=== PATIENT | male | born 1990 | race Caucasian/White ===

== ENCOUNTER 2023-09-16 17:06 | Inpatient (IN) | payer MEDICAID, SELFPAY ==
[2023-09-16 17:35] VITALS: BP 130/83; PULSE 112; RESP 18; TEMP 37.1; O2SAT 97; BMI 26.5
--- NOTE | 2023-09-16 17:40 | ED.EXTPRO ---
HPI - Extremity Problem General Chief complaint: Extremity Injury, Lower Stated complaint: rolled ankle 09/07, swollen, hot Time Seen by Provider: 09/16/23 19:09 Source: patient Mode of arrival: ambulatory Limitations: no limitations History of Present Illness HPI Narrative: 33-year-old male with past medical history IVDU reports to the emergency department with concerns for increased right lower extremity swelling, pain, and erythema. He reports he has been clean for several years but that he is currently homeless, living in a truck and has not been able to elevate the leg. He reports that he was scratching his right leg a few days ago and noted a small abrasion which continued to become the erythema and swelling. He denies any fevers or chills and reports difficultly with ambulation. Related Data Previous Rx's Medication Instructions Recorded cephalexin 500 mg capsule 500 mg PO QID 7 days #28 caps 09/16/23 Allergies Allergy/AdvReac Type Severity Reaction Status Date / Time No Known Allergies Allergy Verified 09/16/23 17:39 Review of Systems Review of Systems: Yes all other systems are reviewed and are negative [facility] Social History Social History Advance Directives: No Advance Directives Information Provided: No Physical Exam Vital Signs: Vital Signs: Last Vital Signs Temp 99.3 F 09/16/23 20:02 Pulse 105 H 09/16/23 20:02 Resp 18 09/16/23 20:02 BP 134/71 09/16/23 20:02 Pulse Ox 98 09/16/23 20:02 O2 Del Method Room Air 09/16/23 20:02 BMI result Body Mass Index 26.5 Nursing notes and vital signs reviewed. GENERAL APPEARANCE: A&0 x 4, generally well appearing, no acute distress HENMT: Normal to inspection, atraumatic, face symmetrical. Normal external ears, nose, and oropharynx clear. EYE: PERRLA, EOM intact, structures appear normal NECK: Supple without stiffness or restricted ROM. HEART: Normal rate and regular rhythm, normal S1/S2, no M/R/G LUNGS: LS CTA, moving air well. Able to speak in complete sentences. No crackles, wheezes, or rhonchi auscultated BACK: No CVAT, no obvious deformity EXTREMITIES: Normal capillary refill. Erythema and swelling to right lower extremity with difficulty with gait NEUROLOGICAL: Alert and oriented, moving all 4 extremities with equal strength. CN not formally tested but appearing grossly intact. Cognition normal SKIN: Warm and dry without any lesions, rash, or visible sores Course Course Course Narrative: This is a rapid medical exam: Additional HPI, ROS, PE not included below will be deferred to primary provider. Concerns for redness, swelling, and warmth to right lower leg for the past several days. Denies fevers. States that he scratched his anterior leg and then began noticing increased erythema Medications Administered Discontinued Medications Generic Name Dose Route Start Last Admin Trade Name Rock PRN Reason Stop Dose Admin Cephalexin HCl 500 mg 09/16/23 19:11 09/16/23 21:04 Cephalexin 500 Mg Capsule PO 09/16/23 19:12 500 mg ONCE ONE Administration Ibuprofen 600 mg 09/16/23 21:04 09/16/23 21:10 Ibuprofen 600 Mg Tablet PO 09/16/23 21:05 600 mg ONCE ONE Administration Medical Decision Making Medical Decision Making MDM Narrative: Old records reviewed for previous imaging, lab studies, ECGs, and notes. Patient was assessed the emergency department with no acute distress or toxicity noted. Blood work showing mild leukocytosis with WBCs 11.2. ESR and CRP elevated. Patient's physical exam consistent with cellulitis with no evidence of acute abscess. Initial plan was for discharge home with prescription for cephalexin. First dose was given here in the emergency department, however; he reports concern regarding discharge. 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 Repeat vital signs showed a temperature of 100.9 after receiving ibuprofen. Tylenol was ordered for antipyretic. IV vancomycin and clindamycin ordered for IV management of cellulitis. I spoke to the hospitalist, Dr. Randall Luo, via secure message with plan for admission. Lab Data 09/16/23 18:05 09/16/23 18:05 Labs: Lab Results 09/16/23 Range/Units 18:05 WBC 11.2 H (4.8-10.8) X10*3/uL RBC 4.18 L (4.60-5.80) X10*6/uL Hgb 12.3 L (14.0-18.0) g/dl Hct 37.0 L (42.0-52.0) % MCV 88.5 (80.0-98.0) fL MCH 29.4 (27.0-33.0) pg MCHC 33.2 (31.0-36.0) g/dl RDW 12.8 (11.0-16.0) % Plt Count 316 (160-400) X10*3/uL MPV 8.7 L (9.4-12.4) fL Immature Gran % (Auto) 0.3 (0.0-0.4) % Neut % (Auto) 81.1 H (45-73) % Lymph % (Auto) 10.9 L (20-40) % [place] % (Auto) 7.3 (2-11) % Eos % (Auto) 0.2 (0-4) % Baso % (Auto) 0.2 (0-2) % Lymph # (Auto) 1.2 (1.2-4.9) X10*3/uL [place] # (Auto) 0.8 (0.1-1.2) X10*3/uL Eos # (Auto) 0.0 (0.0-0.4) X10*3/uL Baso # (Auto) 0.0 (0.0-0.2) X10*3/uL Abs Immat Gran (auto) 0.03 (0.00-0.03) X10*3/uL Absolute Neuts (auto) 9.1 H (2.0-8.3) x10*3/uL Absolute Nucleated RBC 0.000 (0.0-0.012) X10*3/uL Nucleated RBC % (auto) 0.0 (0.0-0.2) /100WBC ESR 34 H (0-15) MM/HR Sodium 136 (135-145) mmol/L Potassium 3.8 (3.3-5.1) mmol/L Chloride 97 (96-108) mmol/L Carbon Dioxide 29 (22-29) mmol/L Anion Gap 14 (12-20) BUN 9 (9-16) mg/dL Creatinine 0.67 (0.5-1.4) mg/dL Estim Creat Clear Calc 158.8 Estimated GFR > 60 Random Glucose 96 (60-115) mg/dL Calcium 9.0 (8.4-10.2) mg/dL Total Bilirubin 0.5 (0.0-1.0) mg/dL AST 31 (5-37) U/L ALT 38 (0-40) U/L Alkaline Phosphatase 52 (39-117) U/L C-Reactive Protein 10.57 H (< or = 0.50) mg/dL Total Protein 6.5 (6.5-8.0) g/dL Albumin 3.4 L (3.5-5.0) g/dL Discharge Plan Discharge Clinical Impression: Cellulitis of leg, right Patient Disposition: Still a Patient Instructions: Cellulitis (ED) Prescriptions: New cephalexin 500 mg capsule 500 mg PO QID 7 Days Qty: 28 0RF Referrals: [facility] [Provider Group] [facility] [Provider Group] [facility] [Provider Group] Print Language: Swedish
[2023-09-16 18:11] LABS: MANUAL DIFF FLAG NO
[2023-09-16 18:18] LABS: Basophils Percent Auto 0.2 % (0-2); Eosinophils Percent Auto 0.2 % (0-4); Hemoglobin 12.3 g/dl (14.0-18.0); Imm Gran Abs Auto 0.03 X10*3/uL (0.00-0.03); Imm Gran Pct Auto 0.3 % (0.0-0.4); Lymphocytes Absolute Auto 1.2 X10*3/uL (1.2-4.9); Lymphocytes Percent Auto 10.9 % (20-40); Mean Corpuscular HGB Conc 33.2 g/dl (31.0-36.0); Mean Corpuscular Hemoglobin 29.4 pg (27.0-33.0); Mean Corpuscular Volume 88.5 fL (80.0-98.0); Mean Platelet Volume 8.7 fL (9.4-12.4); Monocytes Absolute Auto 0.8 X10*3/uL (0.1-1.2); Monocytes Percent Auto 7.3 % (2-11); Neutrophils Absolute Auto 9.1 x10*3/uL (2.0-8.3); Neutrophils Percent Auto 81.1 % (45-73); Platelet Count 316 X10*3/uL (160-400); Red Blood Count 4.18 X10*6/uL (4.60-5.80); Red Cell Distribution Width 12.8 % (11.0-16.0); White Blood Count 11.2 X10*3/uL (4.8-10.8)
[2023-09-16 18:26] LABS: Alanine Aminotransferase 38 U/L (0-40); Albumin Level 3.4 g/dL (3.5-5.0); Alkaline Phosphatase 52 U/L (39-117); Anion Gap 14 (12-20); Aspartate Amino Transferase 31 U/L (5-37); Bilirubin Total 0.5 mg/dL (0.0-1.0); Blood Urea Nitrogen 9 mg/dL (9-16); C Reactive Protein 10.57 mg/dL (< or = 0.50); Carbon Dioxide 29 mmol/L (22-29); Chloride 97 mmol/L (96-108); Creatinine Clr Calc Pharmacy 158.8; Estimated Glomerular Filt Rate > 60; Glucose Random 96 mg/dL (60-115); Potassium 3.8 mmol/L (3.3-5.1); Sodium 136 mmol/L (135-145); Total Protein 6.5 g/dL (6.5-8.0)
[2023-09-16 18:56] LABS: Erythrocyte Sedimentation Rate 34 MM/HR (0-15)
[2023-09-16 20:02] VITALS: BP 134/71; PULSE 105; RESP 18; TEMP 37.4; O2SAT 98
[2023-09-16] MEDS: cephALEXin 500 MG CAPSULE PO (21:04)
[2023-09-16] MEDS: Ibuprofen 600 MG TABLET PO (21:10)
--- NOTE | 2023-09-16 21:58 | PHA.MEDREC ---
Pharmacy Consult ? Medication Reconciliation Pharmacy has completed the medication reconciliation. Patient confirms that he takes no medications.
--- NOTE | 2023-09-16 22:36 | MHC.CM.ED ---
Received consult from Loree JEFFERSON. Met with patient in 17H. LLE cellulitis. Pt is homeless. Has been staying in an abandoned truck. Can stay there from 12a to 5:30am. Otherwise is on the [address]. Pt tells CM he know how to be homeless. Pt borrowed a cane from a friend, as it has become too painful to walk. Pt has recently obtained Medicaid and has been assigned [facility] in [place] for his PCP, but he has never been there. Pt is not on disability. CM asked if patient would be able to obtain prescription antibiotics if discharged. Pt states he really does not think so. Pt has no family locally. Pt went to [facility] today because his leg pain was so severe. They told him to come to the ED. Pt has been in recovery for about 4-5 years from heroin and recently relapsed in the past 2 weeks. States the pain in his leg was too much and that percocet on the street costs about $30/pill, so he bought several bags of heroin. Pt snorts, no IV. Last used heroin 2 days ago. Does not feel he needs any MAT. States he was on methadone for years and was weaned off at a program. States he had a bad reaction to suboxone. Pt is willing to meet with Addiction Medicine. Pt is a pending admission. Pt [facility] [address] for recovery support. Pt is waiting for hospitalist. Pt may be a candidate for [facility] medical respite at discharge. CM will follow for discharge planning if admitted.
--- NOTE | 2023-09-16 23:22 | P.HPHOSP_ITS ---
History of Present Illness Date of Service: 09/16/23 Attending physician on admission: Castro Luo Chief Complaint: Right leg redness and swelling Pt is a 33-year-old male with a PMH significant for?IVDU who presents to the ED with?right leg redness, swelling, and pain x1 week. Pt states symptoms began last week with redness around his ankle, which soon spread up his leg. Leg became swollen and painful and made it difficult the walk; pt has been ambulating with a cane he borrowed from a friend. Has also experienced subjective fever and chills but no nausea or vomiting. Denies chest pain/pressure, palpitations. No SOB. Denies N/V/D or abdominal pain. Pt initially denied any recent drug use, but later admitted he recently relapsed with injecting heroin. In the ED pt was tachycardic up to 112 and with elevated temp of 99.3. Labs were significant for leukocytosis of 11.2, ESR 34, CRP 10.57. No electrolyte abnormalities. Renal and hepatic function WNL. UA negative for UTI. Tox screen positive for opiates, fentanyl, and cocaine. Pt was treated with ibuprophen and cephalexin po. Pt will be admitted to the hospital for treatment and further evaluation of right leg cellulitis. Review of Systems 2 Review of Systems: Right leg redness, swelling, and pain Difficulty abulating subjective fever and chills ON LICENSE OF [facility] Medical History (Updated 09/17/23 @ 01:43 by KOLTON Callahan) Polysubstance use disorder Social History Advance Directives: No Advance Directives Information Provided: No Meds Allergies Allergy/AdvReac Type Severity Reaction Status Date / Time No Known Allergies Allergy Verified 09/16/23 17:39 Active Medications: Current Medications Acetaminophen (Acetaminophen 325 Mg Tablet) 650 mg PO Q6H PRN PRN Reason: Pain, Mild (Pain Scale 1-3) Benzonatate (Benzonatate 100 Mg Capsule) 100 mg PO TID PRN PRN Reason: Cough Docusate Sodium (Docusate Sodium 100 Mg Capsule) 100 mg PO DAILY PRN PRN Reason: Constipation Enoxaparin Sodium (Enoxaparin Sodium 40 Mg/0.4 Ml Syringe) 40 mg SUBCUT Q24H OLAYINKA Vancomycin HCl (Vancomycin/Ns) 2,000 mg in 500 mls @ 250 mls/hr IV ONCE ONE Stop: 09/16/23 23:59 Melatonin (Melatonin 3 Mg Tablet) 6 mg PO BEDTIME PRN PRN Reason: Insomnia Ondansetron HCl (Ondansetron Hcl 4 Mg/2 Ml Vial) 4 mg IVPUSH Q8H PRN PRN Reason: Nausea and Vomiting Pharmacy Consult (Consult Rx Vancomycin Dosing) 1 each MISCELLANE DAILY PRN PRN Reason: Consult order Sodium Chloride (0.9 % Sodium Chloride Flush 3 Ml Syringe) 3 ml IVFLUSH QSHIFT [facility] Home Medications Medication Instructions Recorded Confirmed Last Taken Type No Known Home Meds 09/16/23 09/16/23 Unknown History Physical Exam 2 Vital Signs and Narrative: Vital Signs: Last Vital Signs Temp 99.3 F 09/16/23 20:02 Pulse 105 H 09/16/23 20:02 Resp 18 09/16/23 20:02 BP 134/71 09/16/23 20:02 Pulse Ox 98 09/16/23 20:02 O2 Del Method Room Air 09/16/23 20:02 BMI result Body Mass Index 26.5 General: AOx3, no acute distress Resp: CTA bilaterally CVS: S1, S2, RRR GI: +BS, NT, no distention Skin: Warm, dry Neuro: Cranial nerves II-XII grossly intact bilaterally. Motor grossly intact bilaterally Extremities: No edema. Extensive erythema and warmth of lower right extremity extending from ankle up to groin. As pictured below. Psych: Appropriate affect Results Labs 09/16/23 18:05 09/16/23 18:05 Labs: Laboratory Results - last 24 hr 09/16/23 18:05 MCV 88.5 MCH 29.4 MCHC 33.2 RDW 12.8 Plt Count 316 MPV 8.7 L Immature Gran % (Auto) 0.3 Neut % (Auto) 81.1 H Lymph % (Auto) 10.9 L [place] % (Auto) 7.3 Eos % (Auto) 0.2 Baso % (Auto) 0.2 Lymph # (Auto) 1.2 [place] # (Auto) 0.8 Eos # (Auto) 0.0 Baso # (Auto) 0.0 Abs Immat Gran (auto) 0.03 Absolute Neuts (auto) 9.1 H Absolute Nucleated RBC 0.000 Nucleated RBC % (auto) 0.0 ESR 34 H Anion Gap 14 Estim Creat Clear Calc 158.8 Estimated GFR > 60 Random Glucose 96 Calcium 9.0 Total Bilirubin 0.5 AST 31 ALT 38 Alkaline Phosphatase 52 C-Reactive Protein 10.57 H Total Protein 6.5 Albumin 3.4 L Assessment and Plan (1) Cellulitis of leg, right: Status: Acute Plan Pt is a 33-year-old male with a PMH significant for?IVDU who presents to the ED with?right leg redness, swelling, and pain x1 week. Pt will be admitted to the hospital for treatment and further evaluation of right leg cellulitis. Right leg cellulitis Redness, warmth, pain, F/C x1 week Difficulty ambulating Likely secondary to IVDU Pt does not meet sepsis criteria: tachycardia, but no tachypnea, leukocytosis, or fever Will treat with vanco, started 09/17/2023 Follow cultures Hx of IVDU Pt recently relapsed Tox screen positive for opioids, fentanyl, cocaine Addiction medicine consult Full Code Attending:?Dr. Pereira DVT Prophylaxis: Lovenox Pt will require a hospitalization of at least two nights for treatment of?left leg cellulitis. Although pt does not meet sepsis criteria, given the extent of the cellulitis (from ankle to the groin), as well as the likely source secondary to IVDU, pt will need hospitalization for treatment with IV antibiotics. Quality Stroke Does the patient have a stroke diagnosis?: No VTE Prior VTE?: No VTE Risk Level:: Medical - moderate - high VTE Device Contraindication: Treatment Not Indicated VTE Drug Contraindication: N/A - Med Ordered
[2023-09-17] MEDS: Acetaminophen 325 MG TABLET 975 MG PO (00:11)
[2023-09-17] MEDS: Clindamycin Phosphate/D5W 600 MG/50 ML PIGGYBACK 100 MG IV (00:11)
[2023-09-17 00:25] LABS: Amphetamine Screen Urine Not Detected (Not Detect); Barbiturates, Urine Not Detected (Not Detect); Benzodiazepines Screen Urine Not Detected (Not Detect); Cannabinoid Screen Urine Not Detected (Not Detect); Cocaine Screen Urine POSITIVE (Not Detect); Fentanyl, urine POSITIVE (Not Detect); Opiate Screen Urine POSITIVE (Not Detect); Phencyclidine Screen Urine Not Detected (Not Detect)
[2023-09-17 00:27] LABS: Appearance Urine Clear; Color Urine Yellow; Glucose Urine UA Negative (Negative); Leukocyte Esterase Urine Negative (Negative); Nitrite Urine Negative (Negative); Specific Gravity - Urine <= 1.005 (1.005-1.025); Urine Blood Negative (Negative); Urine Ketones Negative (Negative); Urine Protein Negative (Neg-Trace)
[2023-09-17] MEDS: vancomycin HCL 1,000 MG in 0.9 % Sodium Chloride 250 ML 270 MG IV ×2 (00:51→02:16)
[2023-09-17 02:17] VITALS: BP 100/47; PULSE 61; RESP 14; TEMP 36.6; O2SAT 98
[2023-09-17 06:34] VITALS: BP 132/80; PULSE 85; RESP 16; TEMP 36.4; O2SAT 98
[2023-09-17] MEDS: Acetaminophen 325 MG TABLET 650 MG PO ×2 (08:43→18:10)
[2023-09-17] MEDS: 0.9 % Sodium Chloride Flush 3 ML SYRINGE IVFLUSH (08:47)
--- NOTE | 2023-09-17 08:48 | PC.NURSE ---
Patient alert and oriented laying in bed with breakfast at bedside. Patient is reporting 7/10 RLE pain, tylenol administered at this time, will reassess, redness and swelling noted. Patient reports that his leg is feeling/looking better than yesterday, will continue to observe.
--- NOTE | 2023-09-17 09:25 | PC.NURSE ---
rebel texted Dr. Malagon regarding patient's pain at this time, waiting on answer.
--- NOTE | 2023-09-17 09:45 | PC.NURSE ---
Patient up to bathroom with walker with 1 assist with steady gait.
--- NOTE | 2023-09-17 09:59 | PC.NURSE ---
monomer recovery supervisor at bedside at this time.
--- NOTE | 2023-09-17 10:06 | P.PNIM_ITS ---
Subjective Subjective Date of Service: 09/17/23 Interval History: No acute events since admission. Complaining of leg pain Review of Systems Right leg redness, swelling, and pain Difficulty abulating subjective fever and chills Physical Exam 2 Vital Signs: Vital Signs: Last Vital Signs Temp 97.6 F 09/17/23 06:34 Pulse 85 09/17/23 06:34 Resp 16 09/17/23 06:34 BP 132/80 09/17/23 06:34 Pulse Ox 98 09/17/23 06:34 O2 Del Method Room Air 09/17/23 06:34 BMI result Body Mass Index 26.5 Middle-aged male lying in bed in no distress Neck supple, no JVD Regular rate and rhythm, S1-S2 heard Regular breath sounds bilaterally, no wheezing or crackles appreciated Abdomen soft nontender, no guarding, no rigidity Patient is awake, alert and oriented to self, place, time and person ; no focal motor deficit Psych: Normal mood Left lower extremity with extensive erythema, warmth and tenderness Objective Data Active Medications Acetaminophen (Acetaminophen 325 Mg Tablet) 650 mg PO Q6H PRN PRN Reason: Pain, Mild (Pain Scale 1-3) Last Admin: 09/17/23 08:43 Dose: 650 mg Documented By: KANG Benzonatate (Benzonatate 100 Mg Capsule) 100 mg PO TID PRN PRN Reason: Cough Docusate Sodium (Docusate Sodium 100 Mg Capsule) 100 mg PO DAILY PRN PRN Reason: Constipation Enoxaparin Sodium (Enoxaparin Sodium 40 Mg/0.4 Ml Syringe) 40 mg SUBCUT Q24H [facility] Last Admin: 09/17/23 00:17 Dose: Not Given Documented By: TK Non-Admin Reason: Patient Refused Melatonin (Melatonin 3 Mg Tablet) 6 mg PO BEDTIME PRN PRN Reason: Insomnia Ondansetron HCl (Ondansetron Hcl 4 Mg/2 Ml Vial) 4 mg IVPUSH Q8H PRN PRN Reason: Nausea and Vomiting Pharmacy Consult (Consult Rx Vancomycin Dosing) 1 each MISCELLANE DAILY PRN PRN Reason: Consult order Sodium Chloride (0.9 % Sodium Chloride Flush 3 Ml Syringe) 3 ml IVFLUSH QSHIFT [facility] Last Admin: 09/17/23 08:47 Dose: 3 ml Documented By: HO.MONFETE Tramadol HCl (Tramadol Hcl 50 Mg Tablet) 50 mg PO Q6H PRN PRN Reason: Pain, Moderate(Pain Scale 4-6) Labs 09/16/23 18:05 09/16/23 18:05 Labs: Laboratory Results - last 24 hr 09/16/23 09/17/23 18:05 00:06 MCV 88.5 MCH 29.4 MCHC 33.2 RDW 12.8 Plt Count 316 MPV 8.7 L Immature Gran % (Auto) 0.3 Neut % (Auto) 81.1 H Lymph % (Auto) 10.9 L [place] % (Auto) 7.3 Eos % (Auto) 0.2 Baso % (Auto) 0.2 Lymph # (Auto) 1.2 [place] # (Auto) 0.8 Eos # (Auto) 0.0 Baso # (Auto) 0.0 Abs Immat Gran (auto) 0.03 Absolute Neuts (auto) 9.1 H Absolute Nucleated RBC 0.000 Nucleated RBC % (auto) 0.0 ESR 34 H Anion Gap 14 Estim Creat Clear Calc 158.8 Estimated GFR > 60 Random Glucose 96 Calcium 9.0 Total Bilirubin 0.5 AST 31 ALT 38 Alkaline Phosphatase 52 C-Reactive Protein 10.57 H Total Protein 6.5 Albumin 3.4 L Urine Color Yellow Urine Appearance Clear Urine pH 7.0 Ur Specific [place] <= 1.005 Urine Protein Negative Urine Glucose (UA) Negative Urine Ketones Negative Urine Blood Negative Urine Nitrite Negative Ur Leukocyte Esterase Negative Urine Opiates Screen POSITIVE H Urine Fentanyl Screen POSITIVE H Ur Barbiturates Screen Not Detected Ur Phencyclidine Scrn Not Detected Ur Amphetamines Screen Not Detected U Benzodiazepines Scrn Not Detected Urine Cocaine Screen POSITIVE H U Marijuana (THC) Screen Not Detected Assessment and Plan (1) Cellulitis of leg, right: Status: Acute Plan Pt is a 33-year-old male with a PMH significant for?IVDU who presents to the ED with?right leg redness, swelling, and pain x1 week. Pt will be admitted to the hospital for treatment and further evaluation of right leg cellulitis. Right leg cellulitis IV antibiotics due to extensive cellulitis. No sepsis Vancomycin initiated 09/16, continue Follow cultures and monitor for improvement Hx of IVDU Pt recently relapsed Tox screen positive for opioids, fentanyl, cocaine Addiction medicine consult Full Code DVT Prophylaxis: Lovenox Reason for continued hospitalization: IV antibiotics for extensive cellulitis. Awaiting cultures Quality Stroke Does the patient have a stroke diagnosis?: No VTE Prior VTE?: No VTE Risk Level:: Medical - moderate - high VTE Device Contraindication: Treatment Not Indicated VTE Drug Contraindication: N/A - Med Ordered
[2023-09-17] MEDS: traMADoL HCL 50 MG TABLET PO ×2 (10:17→19:30)
[2023-09-17] MEDS: methADONE HCl 20 MG/2 ML ORAL.CONC 30 MG PO (10:44)
--- NOTE | 2023-09-17 10:45 | PC.NURSE ---
methadone given as ordered at this time.
[2023-09-17 11:07] LABS: Creatinine Clr Calc Pharmacy 163.7; Estimated Glomerular Filt Rate > 60
--- NOTE | 2023-09-17 11:10 | MHC.RECOVRN ---
Met with pt ED OF 3 after consult placed to Addiction Medicine for H/O IVDU with possibility of using again.? Chart review completed and received report from floor nurse KAREN Randall. Pt had presented to the ED stating that he had rolled his left ankle and had been overcompensating with his right ankle causing swelling and pain.? ?Pt was admitted to for left leg cellulitis requiring IV antibiotics.? Upon assessment pt is lying in bed awake and alert.? He reports some overall discomfort R/T W/D and COWS assessment was a 13. Based on subjective and objective assessment. Pt reports he had maintained a period of 2 years of sobriety from ?heroin?.? He was able to achieve this by participating in community resources ([employer], [employer] [facility], meetings, etc) and receiving MOUD (methadone).? Pt reports his highest dose was 130 but he was recently maintained at 90mg.? He was attending the [facility] until 08/30/22.? Pt reports that approx. 1 week ago he twisted his left ankle.? He had been overcompensating with his right foot due to the pain.? He also had purchased some ?pain pills? on the street for the pain as ibuprofen was not working.? The pills did not give much relief either so he returned to ?heroin? (?that?s what they are calling it but who knows what it is?).? He has been using approx. 1 bag of heroin via nasal route for approx. 1 week.? Last use was 09/15 in the PM.? ?? Pt would like to return to the methadone clinic once D/C from hospital.? He feels he had good success with this plan.? Suboxone discussed but pt. is happy with methadone. T/W Spoke with Dr. Malagon and pt was prescribed 30mg methadone.? Referral sent to [facility] in [place] per pt request and plan is for pt to f/u with this clinic upon D/C.? ACS with F/U with pt if still admitted tomorrow and advocate for ongoing methadone coverage while inpt.? Pt was given information for [facility] clinic in [place].? He was also provided with harm reduction information.? Report to Prakash Nguyen, KAREN and ACS team.
--- NOTE | 2023-09-17 13:04 | PHA.PROG ---
Admission Date/Time: September 16, 2023 23:06 Indication: SKIN Weight in k.915 kg Adjusted body weight in Kg: [place] body weight in Kg: Obesity Dosing Indication % IBW: Serum Creatinine - Last 168 Hours 09/16/23 09/17/23 18:05 10:51 Creatinine 0.67 0.65 Estimated CrCl and GFR - Last 168 Hours 09/16/23 09/17/23 18:05 10:51 Estim Creat Clear Calc 158.8 163.7 Estimated GFR > 60 > 60 Vancomycin Loading Dose: 2000 MG Current Vancomycin Dosing Regimen: 1500 MG Q12 Vancomycin Monitoring using AUC goal of 400 - 600 range with trough as surrogate marker:554 Date and Time for next Vancomycin Level to be drawn: 09/17 @1200 Pharmacist Comments on Vancomycin Plan: Vancomycin dosing will take advantage of [employer] as a clinical decision support tool that uses Bayesian modeling to calculate individual patient's pharmacokinetic parameters and forecast the patient's drug concentration time course with the target goal AUC 24 range of 400 - 600 mg/L/hr.
[2023-09-17 14:17] VITALS: BMI 27.9
[2023-09-17 14:19] VITALS: BP 142/87; PULSE 67; RESP 18; TEMP 36.2; O2SAT 98
[2023-09-17] MEDS: vancomycin HCL 1,500 MG in 0.9 % Sodium Chloride 500 ML 333.33 MG IV (14:34)
[2023-09-17] MEDS: Morphine Sulfate Immed Release 15 MG TABLET PO (15:28)
[2023-09-17 15:33] VITALS: BP 142/86; PULSE 62; RESP 18; TEMP 36.2; O2SAT 100
[2023-09-17 19:15] VITALS: BP 131/77; PULSE 63; RESP 18; TEMP 36.9; O2SAT 98
[2023-09-17] MEDS: Melatonin 3 MG TABLET 6 MG PO (21:55)
[2023-09-18] MEDS: 0.9 % Sodium Chloride Flush 3 ML SYRINGE IVFLUSH ×3 (00:03→19:55)
[2023-09-18] MEDS: traMADoL HCL 50 MG TABLET PO ×2 (00:54→06:29)
[2023-09-18] MEDS: vancomycin HCL 1,500 MG in 0.9 % Sodium Chloride 500 ML 333.33 MG IV (00:55)
[2023-09-18 02:49] VITALS: BP 127/74; PULSE 64; RESP 18; TEMP 36.7; O2SAT 99
[2023-09-18 06:19] LABS: MANUAL DIFF FLAG NO
--- NOTE | 2023-09-18 06:37 | PC.NURSE ---
notified via [employer] that patient reported that Ultram is not helping his pain enough and was not comfortable enough during the night although he did not report this until this morning. Also notified patient feels he is having withdraw symptoms such as sweating, chills, nausea and states his concern that his new Methadone order is not high enough to help him.
[2023-09-18 06:44] LABS: Basophils Percent Auto 0.7 % (0-2); Eosinophils Absolute Auto 0.1 X10*3/uL (0.0-0.4); Eosinophils Percent Auto 1.6 % (0-4); Hematocrit 36.2 % (42.0-52.0); Hemoglobin 11.8 g/dl (14.0-18.0); Imm Gran Abs Auto 0.02 X10*3/uL (0.00-0.03); Imm Gran Pct Auto 0.4 % (0.0-0.4); Lymphocytes Absolute Auto 1.2 X10*3/uL (1.2-4.9); Lymphocytes Percent Auto 22.3 % (20-40); Mean Corpuscular HGB Conc 32.6 g/dl (31.0-36.0); Mean Corpuscular Volume 88.9 fL (80.0-98.0); Monocytes Absolute Auto 0.4 X10*3/uL (0.1-1.2); Monocytes Percent Auto 6.4 % (2-11); Neutrophils Absolute Auto 3.8 x10*3/uL (2.0-8.3); Neutrophils Percent Auto 68.6 % (45-73); Platelet Count 314 X10*3/uL (160-400); Red Blood Count 4.07 X10*6/uL (4.60-5.80); Red Cell Distribution Width 12.8 % (11.0-16.0); White Blood Count 5.5 X10*3/uL (4.8-10.8)
[2023-09-18 06:52] LABS: Creatinine Clr Calc Pharmacy 177.4; Estimated Glomerular Filt Rate > 60
[2023-09-18 07:14] VITALS: BP 148/80; PULSE 84; RESP 16; TEMP 36.6; O2SAT 100
[2023-09-18] MEDS: oxyCODONE HCl Immed Release 5 MG TABLET PO ×4 (07:25→20:03)
[2023-09-18] MEDS: methADONE HCl 20 MG/2 ML ORAL.CONC 30 MG PO (08:53)
[2023-09-18] MEDS: Ibuprofen 400 MG TABLET PO ×3 (09:58→18:03)
--- NOTE | 2023-09-18 10:35 | HO.PM.IMPN ---
Subjective Subjective Date of Service: 09/18/23 Interval History: Seen and evaluated this morning complaining of pain in his leg erythema resolving Review of Systems Review of Systems: Yes all other systems are reviewed and are negative Physical Exam Vital Signs: Vital Signs: Last Vital Signs Temp 97.8 F 09/18/23 07:14 Pulse 84 09/18/23 07:14 Resp 16 09/18/23 07:14 BP 148/80 H 09/18/23 07:14 Pulse Ox 100 09/18/23 07:14 O2 Del Method Room Air 09/18/23 07:14 BMI result Body Mass Index 27.9 Const: Other: Constitutional : Awake, interactive, not in distress Neck : Normal inspection, Supple Cardiovascular : RRR, no JVP, no lower extremity edema Respiratory : good bilateral air entry, no crackles, wheezes or rhonchi Gastrointestinal: soft, lax, Normal bowel sounds, Non tender Skin : Warm, Dry, RLE erythema improving, tenderness and warmth on touch Neurological : Alert & oriented x3, No focal deficit Objective Data Active Medications Acetaminophen (Acetaminophen 325 Mg Tablet) 650 mg PO Q6H PRN PRN Reason: Pain, Mild (Pain Scale 1-3) Last Admin: 09/17/23 18:10 Dose: 650 mg Documented By: BORIS Benzonatate (Benzonatate 100 Mg Capsule) 100 mg PO TID PRN PRN Reason: Cough Docusate Sodium (Docusate Sodium 100 Mg Capsule) 100 mg PO DAILY PRN PRN Reason: Constipation Enoxaparin Sodium (Enoxaparin Sodium 40 Mg/0.4 Ml Syringe) 40 mg SUBCUT Q24H [facility] Last Admin: 09/18/23 00:06 Dose: Not Given Documented By: KAYCE Non-Admin Reason: Patient Refused Vancomycin HCl 1,500 mg/ (Sodium Chloride) 500 mls @ 333.333 mls/hr IV Q12H [facility] Last Infusion: 09/18/23 04:23 Dose: Infused Documented By: KAYCE Ibuprofen (Ibuprofen 400 Mg Tablet) 400 mg PO TIDWM [facility] Last Admin: 09/18/23 09:58 Dose: 400 mg Documented By: BOBBI Melatonin (Melatonin 3 Mg Tablet) 6 mg PO BEDTIME PRN PRN Reason: Insomnia Last Admin: 09/17/23 21:55 Dose: 6 mg Documented By: PING Methadone HCl (Methadone Hcl 20 Mg/2 Ml Oral.Conc) 30 mg PO DAILY [facility] Last Admin: 09/18/23 08:53 Dose: 30 mg Documented By: BOBBI Ondansetron HCl (Ondansetron Hcl 4 Mg/2 Ml Vial) 4 mg IVPUSH Q8H PRN PRN Reason: Nausea and Vomiting Oxycodone HCl (Oxycodone Hcl Immed Release 5 Mg Tablet) 5 mg PO Q4H PRN PRN Reason: Pain, Severe (Pain Scale 7-10) Last Admin: 09/18/23 07:25 Dose: 5 mg Documented By: BOBBI Pharmacy Consult (Consult Rx Vancomycin Dosing) 1 each MISCELLANE DAILY PRN PRN Reason: Consult order Sodium Chloride (0.9 % Sodium Chloride Flush 3 Ml Syringe) 3 ml IVFLUSH QSDCFT [facility] Last Admin: 09/18/23 08:53 Dose: 3 ml Documented By: BOBBI Labs 09/18/23 05:33 09/18/23 05:33 Labs: Laboratory Results - last 24 hr 09/17/23 09/18/23 10:51 05:33 MCV 88.9 MCH 29.0 MCHC 32.6 RDW 12.8 Plt Count 314 MPV 9.0 L Immature Gran % (Auto) 0.4 Neut % (Auto) 68.6 Lymph % (Auto) 22.3 Dickson % (Auto) 6.4 Eos % (Auto) 1.6 Baso % (Auto) 0.7 Lymph # (Auto) 1.2 Dickson # (Auto) 0.4 Eos # (Auto) 0.1 Baso # (Auto) 0.0 Abs Immat Gran (auto) 0.02 Absolute Neuts (auto) 3.8 Absolute Nucleated RBC 0.000 Nucleated RBC % (auto) 0.0 Estim Creat Clear Calc 163.7 177.4 Estimated GFR > 60 > 60 Microbiology Microbiology Results: Microbiology 09/17/23 00:06 Blood Culture - Preliminary Blood - Venous No growth after 24 hours. 09/17/23 00:06 Blood Culture - Preliminary Blood - Venous No growth after 24 hours. Assessment and Plan (1) Cellulitis of leg, right: Status: Acute Plan Pt is a 33-year-old male with a PMH significant for?IVDU who presents to the ED with?right leg redness, swelling, and pain x1 week. Pt will be admitted to the hospital for treatment and further evaluation of right leg cellulitis. Right leg cellulitis Improving Pending cultures Vancomycin IV follow Trough Hx of IVDU Pt recently relapsed Tox screen positive for opioids, fentanyl, cocaine Addiction medicine consult Full Code DVT Prophylaxis: Lovenox Reason for continued hospitalization: IV antibiotics for extensive cellulitis. Awaiting cultures Quality Stroke Does the patient have a stroke diagnosis?: No VTE Prior VTE?: No VTE Risk Level:: Medical - moderate - high VTE Device Contraindication: Treatment Not Indicated VTE Drug Contraindication: N/A - Med Ordered
[2023-09-18 11:55] LABS: Vancomycin Random 8.2 mcg/mL (15-20)
[2023-09-18] MEDS: vancomycin HCL 1,250 MG in 0.9 % Sodium Chloride 250 ML 166.67 MG IV (12:15)
--- NOTE | 2023-09-18 13:14 | HE.PHANOTE ---
RE: Vanco Dosing Trough back at 8.2,. Changed dose to 1250mg Q8H predicted trough 11.9, predicted AUC 553. Next trough to be drawn after 3 doses 09/18 @1830.
--- NOTE | 2023-09-18 14:39 | MHC.RECOVRN ---
Met with patient in room 373-1, after his nurse advocated for a check in from [facility] helper. Pt was yawning, appeared anxious moving about in bed, stating he felt good for about 2 hours post methadone dose this morning, and is feeling aweful . Pt admits to using 5-10 bags of heroin daily and being on methadone in the past, which he states worked really well for me prior to the relapse . Spoke with covering MD Lopez, and plan is to give a 10mg dose now, and increase methadone dose to 40mg tommorow morning. Relayed this to KAREN Cintron.
[2023-09-18] MEDS: methADONE HCl 20 MG/2 ML ORAL.CONC 10 MG PO (14:41)
[2023-09-18 15:24] VITALS: BP 143/77; PULSE 56; RESP 16; TEMP 36.2; O2SAT 100
[2023-09-18 19:38] VITALS: BP 127/87; PULSE 77; RESP 18; TEMP 36.3; O2SAT 99
[2023-09-18] MEDS: vancomycin HCL 1,250 MG in 0.9 % Sodium Chloride 250 ML 166.66 MG IV (19:55)
[2023-09-18 21:15] VITALS: PULSE 77
[2023-09-19] VITALS (7 sets, daily range): BP systolic 122–135; BP diastolic 70–79; PULSE 59–77; RESP 16–20; TEMP 35.8–36.6; O2SAT 96–98
[2023-09-19] MEDS: oxyCODONE HCl Immed Release 5 MG TABLET PO ×4 (03:12→20:57)
[2023-09-19] MEDS: vancomycin HCL 1,250 MG in 0.9 % Sodium Chloride 250 ML 166.66 MG IV (04:26)
--- NOTE | 2023-09-19 04:41 | PC.NURSE ---
Pt received oxycodone 5mg at 0312 for 01/03 pain states it did not help with pain requesting for something else. notified ordered dilaudid 0.5mg IV x 1 dose.
[2023-09-19] MEDS: HYDROmorphone HCl 0.5 MG/0.5 ML SYRINGE IVPUSH (05:04)
[2023-09-19] MEDS: Ibuprofen 400 MG TABLET PO ×3 (07:36→16:00)
[2023-09-19] MEDS: 0.9 % Sodium Chloride Flush 3 ML SYRINGE IVFLUSH ×3 (07:36→21:00)
[2023-09-19] MEDS: methADONE HCl 20 MG/2 ML ORAL.CONC 40 MG PO (07:36)
--- NOTE | 2023-09-19 09:06 | HO.PM.IMPN ---
Subjective Subjective Date of Service: 09/19/23 Interval History: Seen and evaluated this morning complaining of pain in his leg erythema improving but still significant Review of Systems Review of Systems: Yes all other systems are reviewed and are negative Physical Exam Vital Signs: Vital Signs: Last Vital Signs Temp 98 F 09/19/23 06:59 Pulse 65 09/19/23 06:59 Resp 16 09/19/23 06:59 BP 122/70 09/19/23 06:59 Pulse Ox 98 09/19/23 06:59 O2 Del Method Room Air 09/19/23 06:59 BMI result Body Mass Index 27.9 Const: Other: Constitutional : Awake, interactive, not in distress Neck : Normal inspection, Supple Cardiovascular : RRR, no JVP, no lower extremity edema Respiratory : good bilateral air entry, no crackles, wheezes or rhonchi Gastrointestinal: soft, lax, Normal bowel sounds, Non tender Skin : Warm, Dry, RLE erythema improving, tenderness and warmth on touch Neurological : Alert & oriented x3, No focal deficit Objective Data Active Medications Acetaminophen (Acetaminophen 325 Mg Tablet) 650 mg PO Q6H PRN PRN Reason: Pain, Mild (Pain Scale 1-3) Last Admin: 09/17/23 18:10 Dose: 650 mg Documented By: BORIS Benzonatate (Benzonatate 100 Mg Capsule) 100 mg PO TID PRN PRN Reason: Cough Docusate Sodium (Docusate Sodium 100 Mg Capsule) 100 mg PO DAILY PRN PRN Reason: Constipation Enoxaparin Sodium (Enoxaparin Sodium 40 Mg/0.4 Ml Syringe) 40 mg SUBCUT Q24H [facility] Last Admin: 09/19/23 00:50 Dose: Not Given Documented By: YANCI Non-Admin Reason: Patient Refused Vancomycin HCl 1,250 mg/ (Sodium Chloride) 250 mls @ 166.667 mls/hr IV Q8H [facility] Last Infusion: 09/19/23 06:02 Dose: Infused Documented By: YANCI Ibuprofen (Ibuprofen 400 Mg Tablet) 400 mg PO TIDWM [facility] Last Admin: 09/19/23 07:36 Dose: 400 mg Documented By: UZMA Melatonin (Melatonin 3 Mg Tablet) 6 mg PO BEDTIME PRN PRN Reason: Insomnia Last Admin: 09/17/23 21:55 Dose: 6 mg Documented By: PING Methadone HCl (Methadone Hcl 20 Mg/2 Ml Oral.Conc) 40 mg PO DAILY [facility] Last Admin: 09/19/23 07:36 Dose: 40 mg Documented By: UZMA Ondansetron HCl (Ondansetron Hcl 4 Mg/2 Ml Vial) 4 mg IVPUSH Q8H PRN PRN Reason: Nausea and Vomiting Oxycodone HCl (Oxycodone Hcl Immed Release 5 Mg Tablet) 5 mg PO Q4H PRN PRN Reason: Pain, Severe (Pain Scale 7-10) Last Admin: 09/19/23 07:35 Dose: 5 mg Documented By: UZMA Pharmacy Consult (Consult Rx Vancomycin Dosing) 1 each MISCELLANE DAILY PRN PRN Reason: Consult order Sodium Chloride (0.9 % Sodium Chloride Flush 3 Ml Syringe) 3 ml IVFLUSH QSHIFT [facility] Last Admin: 09/19/23 07:36 Dose: 3 ml Documented By: UZMA Labs 09/18/23 05:33 09/18/23 05:33 Labs: Laboratory Results - last 24 hr 09/18/23 11:32 Random Vancomycin 8.2 L Microbiology Microbiology Results: Microbiology 09/17/23 00:06 Blood Culture - Preliminary Blood - Venous No growth after 48 hours. 09/17/23 00:06 Blood Culture - Preliminary Blood - Venous No growth after 48 hours. Assessment and Plan (1) Cellulitis of leg, right: Status: Acute (2) Opioid abuse with withdrawal: Status: Acute Plan Pt is a 33-year-old male with a PMH significant for?IVDU who presents to the ED with?right leg redness, swelling, and pain x1 week. Pt will be admitted to the hospital for treatment and further evaluation of right leg cellulitis. Right leg cellulitis Improving slowly, still with tenderness and erythema negative cultures Vancomycin IV Trough was <10, Dose adjusted will continue with 1 more day of IV Vancomycin for now Hx of IVDU Pt recently relapsed Tox screen positive for opioids, fentanyl, cocaine Addiction medicine consulted, started on MEthadone Dose increased to 40 mg this morning Full Code DVT Prophylaxis: Lovenox Reason for continued hospitalization: IV antibiotics for extensive cellulitis pending clinical improvement . Quality Stroke Does the patient have a stroke diagnosis?: No VTE Prior VTE?: No VTE Risk Level:: Medical - moderate - high VTE Device Contraindication: Treatment Not Indicated VTE Drug Contraindication: N/A - Med Ordered
[2023-09-19 10:53] LABS: Vancomycin Random 19.5 mcg/mL (15-20)
[2023-09-19 10:55] LABS: Estimated Glomerular Filt Rate > 60
--- NOTE | 2023-09-19 11:07 | HE.PHANOTE ---
RE: vanco Trough on 09/17 came back at 19.5; decreased dose to 1000mg Q8H with predicted trough of 9.7 mg/L, AUC of 520 mg/L. Next level to be drawn 09/19 @1100
--- NOTE | 2023-09-19 11:47 | MHC.CM.PN ---
PER MD ROUNDS PATIENT IS NOT MEDICALLY CLEARED FOR DC, ONE MORE DAY IV ABX. CM WILL CONTINUE TO FOLLOW.
[2023-09-19] MEDS: vancomycin HCL 1,000 MG in 0.9 % Sodium Chloride 250 ML 270 MG IV ×2 (11:59→21:01)
--- NOTE | 2023-09-19 15:37 | MHC.RECOVRN ---
Met with pt this morning to follow up regarding methadone titration. Pt reports positive effect with 40 mg, however, reports beginning to feel withdrawal symptoms in the afternoon. Pt reports feeling anxious, irritable, upset stomach. Pt reports discontinuing methadone last month, had been on 130 mg in May and tapered to 5 mg by July. Pt reports it was too fast and would like to continue methadone titration. Pt denies other questions or concerns. Discussed with provider. Plan for additional 10 mg methadone today and increase to 50 mg daily 09/19.
[2023-09-19] MEDS: methADONE HCl 20 MG/2 ML ORAL.CONC 10 MG PO (15:59)
[2023-09-19] MEDS: Melatonin 3 MG TABLET 6 MG PO (22:08)
[2023-09-20] MEDS: Acetaminophen 325 MG TABLET 650 MG PO (02:53)
[2023-09-20] MEDS: oxyCODONE HCl Immed Release 5 MG TABLET PO ×2 (02:53→12:27)
[2023-09-20 04:00] VITALS: BP 122/75; PULSE 58; RESP 16; TEMP 36.6; O2SAT 97
[2023-09-20] MEDS: Morphine Sulfate Immed Release 15 MG TABLET PO (04:24)
[2023-09-20] MEDS: vancomycin HCL 1,000 MG in 0.9 % Sodium Chloride 250 ML 270 MG IV ×2 (04:25→12:28)
[2023-09-20 06:00] VITALS: PULSE 58
[2023-09-20 07:31] VITALS: BP 129/80; PULSE 61; RESP 18; TEMP 36.6; O2SAT 96
[2023-09-20] MEDS: Ibuprofen 400 MG TABLET PO ×2 (08:05→12:28)
[2023-09-20] MEDS: methADONE HCl 20 MG/2 ML ORAL.CONC 50 MG PO (08:05)
[2023-09-20] MEDS: 0.9 % Sodium Chloride Flush 3 ML SYRINGE IVFLUSH (08:08)
[2023-09-20 11:24] LABS: Vancomycin Random 14.9 mcg/mL (15-20)
[2023-09-20 11:28] LABS: Creatinine Clr Calc Pharmacy 164.7; Estimated Glomerular Filt Rate > 60
--- NOTE | 2023-09-20 11:36 | HE.PHANOTE ---
VANCO DOSE ADJUSTMENT BASED ON TROUGH OF 14.9 DOSE CONTINUED AT 1000 Q 8. NEXT LEVEL 09/20 @ 1100
--- NOTE | 2023-09-20 13:54 | P.DS_ITS ---
DS: Providers Provider Date of Service: 09/20/23 Date of admission: 09/16/23 23:06 Primary care physician: Unknown Physician Consults: 09/16/23 23:20 Addiction Medicine Routine Consulting Provider: Addiction Covering Reason for consultation: Hx of IVDU, possibly using again? DS: Diagnosis Discharge Diagnosis (1) Cellulitis of leg, right: Status: Acute (2) Opioid abuse with withdrawal: Status: Acute DS: Summary Hospital Course Hospital Course: Admission note HPI Pt is a 33-year-old male with a PMH significant for?IVDU who presents to the ED with?right leg redness, swelling, and pain x1 week. Pt states symptoms began last week with redness around his ankle, which soon spread up his leg. Leg became swollen and painful and made it difficult the walk; pt has been ambulating with a cane he borrowed from a friend. Has also experienced subjective fever and chills but no nausea or vomiting. Denies chest pain/pressure, palpitations. No SOB. Denies N/V/D or abdominal pain. Pt initially denied any recent drug use, but later admitted he recently relapsed with injecting heroin. In the ED pt was tachycardic up to 112 and with elevated temp of 99.3. Labs were significant for leukocytosis of 11.2, ESR 34, CRP 10.57. No electrolyte abnormalities. Renal and hepatic function WNL. UA negative for UTI. Tox screen positive for opiates, fentanyl, and cocaine. Pt was treated with ibuprophen and cephalexin po. Pt will be admitted to the hospital for treatment and further evaluation of right leg cellulitis. Hospital course # Right leg cellulitis Treated with IV antibiotics of Vancomycin as blood cultures remained negative. erythema and tenderness improved significantly during hospital stay. to be discharged on Doxycycline and Keflex for 1 more week. # Hx of IVDU He recently relapsed as Tox screen positive for opioids, fentanyl, cocaine. Evaluated by Addiction medicine consulted and started on MEthadone which was increased to 50 mg with good tolerance. to follow with Methadone clinic on discharge. Continue Keflex and Doxycycline as prescribed Ibuprofen as needed for pain Follow with Methadone clinic to continue Methadone Time Attestation Discharge Coordination Time (in mins): 36 Quality: Safe Use of Opioids Does Pt have an Active Cancer Diagnosis on the Problem List?: No Quality: Stroke Does the patient have a stroke diagnosis?: No Physical Exam Vital Signs: Vital Signs: Last Vital Signs Temp 97.9 F 09/20/23 07:31 Pulse 61 09/20/23 07:31 Resp 18 09/20/23 07:31 BP 129/80 09/20/23 07:31 Pulse Ox 96 09/20/23 07:31 O2 Del Method Room Air 09/20/23 07:31 BMI result Body Mass Index 27.9 Const: Other: Constitutional : Awake, interactive, not in distress Neck : Normal inspection, Supple Cardiovascular : RRR, no JVP, no lower extremity edema Respiratory : good bilateral air entry, no crackles, wheezes or rhonchi Gastrointestinal: soft, lax, Normal bowel sounds, Non tender Skin : Warm, Dry, RLE erythema improving, no tenderness Neurological : Alert & oriented x3, No focal deficit DS: Data Data Completed and Pending Labs on day of discharge: Laboratory Results - last 24 hr 09/20/23 10:59 Hold Purple Top SEE NOTE Creatinine 0.70 Estim Creat Clear Calc 164.7 Estimated GFR > 60 Random Vancomycin 14.9 L Preliminary micro results at discharge 09/17/23 00:06 Blood Culture - Preliminary Blood - Venous No growth after 48 hours. 09/17/23 00:06 Blood Culture - Preliminary Blood - Venous No growth after 48 hours. Discharge Plan Discharge Anticipated Discharge Date/Time: 09/20/23 13:35 Patient Disposition: Home, Self-Care Discharge Diagnosis: Cellulitis Opioid abuse Referrals: [facility] [Other] - 1 Week (Arrive for 4:45 pm to review medical needs with nurse. Dinner is at 5pm and sign in at 5:30pm.) [facility] [place] [Provider Group] [facility] [place] [facility] [Provider Group] [facility] [place] Primary [facility] [Provider Group] Physician,Unknown J [Physician] - 1 Week Discharge Medications: New ibuprofen 400 mg Tablet 400 mg PO TIDWM PRN (Reason: Pain (Scale Score 7-10)) Qty: 30 0RF methadone [Methadose] 10 mg/mL Concentrate 50 mg PO DAILY Qty: 5 0RF Rx Instructions: Partial Fill upon patient request. doxycycline monohydrate 100 mg tablet 100 mg PO BID Qty: 14 0RF cephalexin 500 mg capsule 500 mg PO BID Qty: 14 0RF Discharge Orders: Discharge Order (Routine); Ordered 09/20/23 Ordered By: Justa Lopez Diet: Advance to usual diet Activity on Discharge: As tolerated Stand Alone Forms: Patient Portal Discharge page Print Language: Tongan Care Plan Goals: Read below Health Concerns: Read below Plan of Treatment: Read below Assessment: Continue Keflex and Doxycycline as prescribed Ibuprofen as needed for pain Follow with Methadone clinic to continue Methadone Patient Instructions: Cellulitis (ED)
--- NOTE | 2023-09-20 14:21 | MHC.CM.PN ---
Per MD patient is medically cleared for dc. Patient initially requesting assistance w/ detention bed. CM attempted to obtain bed at [facility], but no intake nurse available today. CM secured bed at [facility] [place] [facility]. However, patient now declining detention placement at this time. States he will continue to sleep in abandoned truck. MD and RN aware. caponizer aware of dc, patient will f/u with [facility] for methadone. Bus passes provided for dc.
[2023-09-20] MEDS: methADONE HCl 20 MG/2 ML ORAL.CONC 5 MG PO (14:44)
== END 2023-09-20 15:21 | disposition home or self-care (01) | DRG 383 ==
LOC: HO.ED 21:15 → HO.EDOVER 23:11 → HO.S3 09-17 13:25
PROVIDERS: Nurse Practitioner Family; Student in an Organized Health Care Education/Training Program; Admitting Provider Student in an Organized Health Care Education/Training Program; Emergency Provider Emergency Medicine; Visit Provider Student in an Organized Health Care Education/Training Program
DX: L03.115 Cellulitis of right lower limb (principal); F11.13 Opioid abuse with withdrawal; F17.210 Nicotine dependence, cigarettes, uncomplicated; Z59.02 Unsheltered homelessness; Z71.6 Tobacco abuse counseling; Z79.899 Other long term (current) drug therapy
CPT/HCPCS: 36415; 80053; 80202; 80307; 81003; 82565; 85025; 85652; 86140; 87040; 99221; 99285; J0736; J1170; J3370; J3371

== ENCOUNTER → 2023-09-16 23:06 | Outpatient (BNV) | payer MEDICAID, SELFPAY | PROVIDERS: Admitting Provider Student in an Organized Health Care Education/Training Program; Emergency Provider Emergency Medicine; Visit Provider Student in an Organized Health Care Education/Training Program | DX: L03.115 Cellulitis of right lower limb (principal); F11.13 Opioid abuse with withdrawal | CPT/HCPCS: 99223; 99232; 99233; 99239 ==

== ENCOUNTER 2024-08-18 21:14 | Inpatient (IN) | payer MEDICAID, SELFPAY ==
--- NOTE | ~2024-08-18 | MR_ITS ---
CLINICAL HISTORY: Osteomyelitis of R navicular bone MR of the right forefoot with and without gadolinium Comparison: CR - XR FOOT RT MIN 3V - 08/18/24 22:04 EST Findings: Linear low T1 signal intensity traverses the 3rd metacarpal neck with moderate surrounding ill-defined STIR signal elevation. There is moderate diffuse enhancing low T1/high STIR signal intensity within the anterior talus, the navicular, 1st, 2nd, and 3rd cuneiforms, as well as the medial cuboid, and anterior calcaneus. Multiple irregular regions of hypo enhancing low T1 signal intensity within the navicular. The avulsion fracture of the navicular seen by plain film is not well seen by MRI. There is moderate diffuse subcutaneous STIR signal elevation and enhancement, predominantly medially and dorsally. There are multiple peripherally enhancing fluid collections within the medial aspect of the midfoot and hindfoot, largest of which is at the medial aspect of the posterior talus, measuring 45 mm craniocaudal. IMPRESSION: 1. Mildly displaced 3rd metacarpal neck fracture. 2. Osteomyelitis involving the talus, navicular, cuneiforms, cuboid, and calcaneus. 3. Multiple abscesses, predominantly medially, with severe surrounding cellulitis. 4. Nonvisualization of the navicular fracture of the talus seen by plain film. This document has been electronically signed by: Srinivas Lenz MD on 08/19/2024 13:33:57
--- NOTE | ~2024-08-18 | FL_ITS ---
EXAMINATION: FL GUIDANCE ONLY HISTORY: I D RIGHT FOOT COMPARISON: Comparison is made with the prior examination of the right foot dated 08/18/2024. TECHNIQUE: Fluoroscopy time: 3.72 seconds. Cumulative Dose: 0.1568 mGy. DAP: 0.0095 mGym2 Images: 1. FINDINGS: A single fluoroscopic spot film of the right midfoot was obtained. FL/FL guidance in OR IMPRESSION: Fluoroscopy during procedure. Please see procedure report for additional information. Electronically signed by: Placido Starr MD 08/22/2024 07:21 AM TAE
--- NOTE | ~2024-08-18 | XR_ITS ---
CLINICAL HISTORY: pain, fall 3 view right foot Comparison: None Findings: The navicular bone is mottled with heterogeneous density in cortical lucencies. There is an avulsion fracture of the proximal/medial navicular bone. No significant loss of joint space, osteophytes, or erosions. No ankle effusion. No radiopaque foreign body. Severe swelling in the medial ankle. IMPRESSION: 1. Mottled navicular bone with multiple lucencies favoring osteomyelitis. 2. Avulsion fracture of the proximal/medial navicular bone. This document has been electronically signed by: Edmund Jaeger MD on 08/18/2024 22:20:48
--- NOTE | ~2024-08-18 | CT_ITS ---
EXAMINATION: CT FOOT WITH CONTRAST, RIGHT CLINICAL INFORMATION: Rule out osteomyelitis. COMPARISON: MRI right foot 08/19/2024. TECHNIQUE: Spiral CT imaging of the right foot spine performed in axial plane, the administration IV Omnipaque 350 contrast. Multiplanar reformatted images were constructed from the axial data set. This CT examination was performed using dose optimization techniques as appropriate, variously including the following: *Automated exposure control *Adjustment of mA and/or kV according to patient size (this includes techniques or standardized protocols for targeted exams where dose is matched to indication/reason for exam; i.e. extremities or head) *Use of iterative reconstruction technique FINDINGS: Redemonstration of osteopenia or erosive changes throughout the tarsal articulations and tarsal bones. There is osteopenia with erosive changes present, involving the cuboid, cuneiform bones, navicular bone, and most proximal periarticular metacarpal, predominantly the second. There appears to have been resection of the majority of the navicular bone. The anterior process of the talus, talar dome and subtalar joints appear grossly normal. The MRI did show signal alterations in the anterior process of the calcaneus. There may be subtle erosions of the anterior process. The body and posterior calcaneus appear normal. There is a subacute appearing fracture of the distal third metatarsal metaphysis. No additional acute fractures. There is a small peripheral enhancing fluid collection along the surgical tract to the navicular bone. This is likely postoperative. There is a contiguous small subcutaneous peripherally enhancing collection with foci of gas along the medial midfoot (series 3, image 46/53), possibly infection versus postoperative changes. No additional loculated peripherally enhancing fluid collection. There is soft tissue swelling dorsally, medially, and to a lesser degree involving the plantar musculature. CT/CT foot RT w IV con IMPRESSION: 1. There has been interval resection of the majority of the navicular bone. There is a small fluid collection along the medial surgical tract, which is contiguous with a small subcutaneous enhancing collection containing small foci of gas and fluid in the medial midfoot. This may be postoperative although organizing infection is not excluded. Aside from these collections, no abnormal collections in the dorsal, lateral or plantar foot. 2. There is osteopenia with erosive changes throughout the cuneiforms, residual navicular, cuboid bones, and the proximal second metatarsal bone. Findings are consistent with known osteomyelitis. 3. Subtle erosive changes are likely present involving the anterior process of the calcaneus. 4. Subacute fracture of the distal metaphysis, third metacarpal. Electronically signed by: Cory Chen MD 08/22/2024 02:20 PM TAE
--- NOTE | ~2024-08-18 | FL_ITS ---
EXAMINATION: FL GUIDANCE ONLY HISTORY: I D right foot COMPARISON: Correlation is made with an MRI of the right foot dated 08/19/2024. TECHNIQUE: Fluoroscopy time: 7.68 seconds. Cumulative Dose: 0.3322 mGy. DAP: 0.0201 mGym2 Images: 3. FINDINGS: Images demonstrate a probe projected over the talonavicular and subtalar joints. FL/FL guidance in OR IMPRESSION: Fluoroscopy during procedure. Please see procedure report for additional information. Electronically signed by: Placido Starr MD 08/20/2024 08:13 AM TAE
--- NOTE | ~2024-08-18 | XR_ITS ---
CLINICAL HISTORY: fall, pain 3 view right ankle Comparison: None Findings: The navicular bone is mottled with heterogeneous density in cortical lucencies. There is an avulsion fracture of the proximal/medial navicular bone. No significant loss of joint space, osteophytes, or erosions. No ankle effusion. No radiopaque foreign body. Severe swelling in the medial ankle. IMPRESSION: 1. Mottled navicular bone with multiple lucencies favoring osteomyelitis. 2. Avulsion fracture of the proximal/medial navicular bone. This document has been electronically signed by: Edmund Jaeger MD on 08/18/2024 22:28:40
[2024-08-18 21:25] VITALS: BP 136/76; PULSE 111; O2SAT 98
[2024-08-18 21:42] VITALS: BP 147/95; PULSE 90; RESP 18; TEMP 36.9; O2SAT 100; BMI 23.0
--- NOTE | 2024-08-18 21:42 | ED_ITS ---
HPI - Extremity Problem General Chief complaint: Extremity Injury, Lower Stated complaint: FALL ON ICE, PAIN AND SWELLING ON R FOOT Time Seen by Provider: 08/19/24 00:16 Source: patient Mode of arrival: ambulatory Limitations: no limitations History of Present Illness ED Provider: Dr. Neli Rueda HPI Narrative: patient comes to the emergency room via ambulance complaining of right foot pain. Patient states that about a week ago, patient was walking in the snow and sprain his ankle/ foot. Patient did not think much of it, continued with his regular activities throughout the next couple of days. However, patient had pain but pushed through the pain still walking on it. Then, his foot started becoming very erythematous, swollen, very painful. Patient has been unable to bear any weight all for the last 3-5 days. Patient has been soaking his foot in cold water hoping that the swelling and pain would go away but it is increasing. Denies fever chills, denies any other injuries. Patient known to be IV drug user, patient states that he does not inject on his foot Related Data Previous Rx's ?Medication ?Instructions ?Recorded cane #1 ea 09/20/23 cephalexin 500 mg capsule 500 mg PO BID #14 caps 09/20/23 doxycycline monohydrate 100 mg 100 mg PO BID #14 tabs 09/20/23 tablet ibuprofen 400 mg tablet 400 mg PO TIDWM PRN Pain (Scale 09/20/23 Score 7-10) #30 tabs methadone 10 mg/mL oral 50 mg (5 mL) PO DAILY #5 mL 09/20/23 concentrate (Methadose) Allergies Allergy/AdvReac Type Severity Reaction Status Date / Time No Known Allergies Allergy Verified 08/18/24 21:43 Review of Systems 2 Review of Systems: Constitutional : No Weight loss, No Fever, No Chills, No Night Sweats, No Fatigue, No Malaise ENT/Mouth : No Hearing loss, No Ear Pain, No Nasal Congestion, No Sinus Pain, No Hoarseness, No sore throat, No Rhinorrhea, No Swallowing Difficulty Eyes: No Eye Pain, No Swelling, No Redness, No Foreign Body, No Discharge, No Vision Changes Cardiovascular : No Chest Pain, No SOB, No Dyspnea on Exertion, No Orthopnea, No Edema, No Palpitations Respiratory : No Cough, No Sputum, No Wheezing, No Smoke Exposure, No Dyspnea Gastrointestinal : No Nausea, No Vomiting, No Diarrhea, No Constipation, No abdominal Pain, No Hematochezia, No Melena Genitourinary : no irregular bleeding, No Dysuria, No Urinary Frequency, No Hematuria, No Urinary Incontinence, No Urgency, No Flank Pain, No Urinary Flow Changes, No Hesitancy Musculoskeletal : complaining of pain in the right foot, swollen, erythematous, unable to bear weight Skin : No Skin Lesions, No rash, right foot with erythema swollen Neuro : No Weakness, No Numbness, No Paresthesias, No Loss of Consciousness, No Dizziness, No Headache Psych : No Anxiety/Panic, No Depression, No SI/HI/AH/VH, No Social Issues, Heme/Lymph: No Bruising, No Bleeding,No Lymphadenopathy Endocrine : No Polyuria, No Polydipsia, No Temperature Intolerance PMFSH Past Medical History Medical History Polysubstance use disorder Social History Social History Household Members: None Housing: Homeless Do you presently have visiting nurse or other home services: No Patient Tobacco Use Status: Current everyday Tobacco user Tobacco use type: Cigarette Cigarette Packs Per Day: 10 Cigarettes Per Day: 200.0 e-Cigarette/Vaping Use: Never Used Substance Use Type: Heroin and Marijuana Advance Directives: No Advance Directives Information Provided: Yes service: No Physical Exam 2 Vital Signs: Vital Signs: Last Vital Signs Temp 98.5 F 08/18/24 21:42 Pulse 90 08/18/24 21:42 Resp 18 08/18/24 21:42 BP 147/95 H 08/18/24 21:42 Pulse Ox 100 08/18/24 21:42 O2 Del Method Room Air 08/18/24 21:42 BMI result Body Mass Index 23.0 Const: Other: Appearance: Alert. Oriented X3. No acute distress. Eyes: Pupils equal, round and reactive to light. ENT: Pharynx normal. Neck: Normal inspection. Neck supple. No lymph nodes noted. No crepitus CVS: Normal heart rate and rhythm. Pulses normal. Normal S1 and S2 Respiratory: No respiratory distress. Breath sounds normal. No Wheezing. No rales Abdomen: Soft and nontender. No rigidity. No distention. Skin: Skin warm and dry. see extremities below Extremities: No lower extremity edema. right foot is swollen, erythematous very tender to touch. See pictures below Neuro: Oriented X 3. No motor deficit. No sensory deficit. Moving all extremities. No slurred speech. CN 2 through 12 grossly intact Psych: calm, cooperative, normal affect Course Course Course Narrative: 34 yo male with IVDA has missed his methadone dose for 114mg for the past several days he reports chills but no fevers at this time he denies injecting in R ankle but states he slipped and fell hurting his R ankle but he notes it has gotten much more swollen and red over time. At this time will need labs, cultures, lactic acid, xray. this is a RAPID medical screening exam the rest of the history and physical exam is to be done by the main provider. Medications Administered Generic Name Dose Route Start Last Admin Trade Name Freq PRN Reason Stop Dose Admin Sodium Chloride 1,000 mls @ 999 mls/hr 08/19/24 00:39 08/19/24 00:59 Ns IVCONT 08/19/24 01:39 999 mls/hr .Q1H1M ONE Administration Piperacillin Sod/Tazobactam 100 mls @ 200 mls/hr 08/19/24 00:39 08/19/24 00:57 Sod 4.5 gm/ Sodium Chloride IV 08/19/24 01:08 200 mls/hr ONCE ONE Administration Discontinued Medications Generic Name Dose Route Start Last Admin Trade Name Freq PRN Reason Stop Dose Admin Ibuprofen 600 mg 08/18/24 22:05 08/18/24 23:33 Ibuprofen 600 Mg Tablet PO 08/18/24 22:06 600 mg ONCE ONE Administration Morphine Sulfate 4 mg 08/19/24 00:39 08/19/24 00:58 Morphine Sulfate 4 Mg/Ml Cartridge IVPUSH 08/19/24 00:40 4 mg ONCE ONE Administration Protocol Medical Decision Making Medical Decision Making MDM Narrative: x-ray shows a navicular fracture and osteomyelitis. Patient was started on IV fluids, vancomycin and Zosyn. I discussed the patient with KOLTON Del Valle from Orthopedics. Usually, this type of fractures would need a short posterior splint with stirrup. However, due to the swelling, we will hold off of putting any splint and patient will be on strict nonweightbearing. I discussed the patient with Dr. Moore from the Medicine team, patient being admitted. Orthopedics requesting a general surgery consult for tomorrow all of patient's vitals stable. No hypotension no tachycardia, lactic acid 0.9. Sepsis is not suspected Differential Diagnosis Differential Diagnoses: The differential diagnosis associated with the presentation includes ( Osteomyelitis, navicular fracture, dislocation, cellulitis) Admission/Observation Consideration of admission/observation: Escalation of care including admission/observation considered Consult Healthcare Provider Management of the patient was discussed with: Hospitalist and Motor Grader Rough Grade Lab Data [facility] Lab Attestation statement: I reviewed the patient's lab results. 08/18/24 22:19 08/18/24 22:19 Labs: Lab Results 08/18/24 Range/Units 22:19 WBC 15.2 H (4.8-10.8) X10*3/uL RBC 4.94 D (4.60-5.80) X10*6/uL Hgb 14.4 D (14.0-18.0) g/dl Hct 42.2 (42.0-52.0) % MCV 85.4 (80.0-98.0) fL MCH 29.1 (27.0-33.0) pg MCHC 34.1 (31.0-36.0) g/dl RDW 12.0 (11.0-16.0) % Plt Count 629 H D (160-400) X10*3/uL MPV 8.4 L (9.4-12.4) fL Immature Gran % (Auto) 0.3 (0.0-0.4) % Neut % (Auto) 66.7 (45-73) % Lymph % (Auto) 27.0 (20-40) % [place] % (Auto) 5.5 (2-11) % Eos % (Auto) 0.1 (0-4) % Baso % (Auto) 0.4 (0-2) % Lymph # (Auto) 4.1 (1.2-4.9) X10*3/uL [place] # (Auto) 0.8 (0.1-1.2) X10*3/uL Eos # (Auto) 0.0 (0.0-0.4) X10*3/uL Baso # (Auto) 0.1 (0.0-0.2) X10*3/uL Abs Immat Gran (auto) 0.05 H (0.00-0.03) X10*3/uL Absolute Neuts (auto) 10.2 H (2.0-8.3) x10*3/uL Absolute Nucleated RBC 0.000 (0.0-0.012) X10*3/uL Nucleated RBC % (auto) 0.0 (0.0-0.2) /100WBC ESR 70 H (0-15) MM/HR Sodium 137 (135-145) mmol/L Potassium 3.7 (3.3-5.1) mmol/L Chloride 101 (96-108) mmol/L Carbon Dioxide 24 (22-29) mmol/L Anion Gap 16 (12-20) BUN 12 (9-16) mg/dL Creatinine 0.70 (0.5-1.4) mg/dL Estim Creat Clear Calc 149.7 Estimated GFR > 60 Random Glucose 104 (60-115) mg/dL Lactic Acid 0.9 (0.5-2.0) mmol/L Calcium 9.8 D (8.4-10.2) mg/dL Magnesium 2.1 (1.6-2.6) mg/dL Total Bilirubin 0.6 (0.0-1.0) mg/dL Direct Bilirubin 0.3 (0.0-0.5) mg/dL AST 22 (5-37) U/L ALT 31 (0-40) U/L Alkaline Phosphatase 76 (39-117) U/L Total Creatine Kinase 19 L (38-174) U/L C-Reactive Protein 7.25 H (< or = 0.50) mg/dL Total Protein 9.4 H (6.5-8.0) g/dL Albumin 3.9 (3.5-5.0) g/dL Lipase 17 (8-78) U/L Independent Interpretation I performed an independent interpretation of an: Plain X-Ray Radiology Impression Discussion of test interpretation with radiology: I have reviewed the radiologist's reading. Radiologist Impression: Findings: The navicular bone is mottled with heterogeneous density in cortical lucencies. There is an avulsion fracture of the proximal/medial navicular bone. No significant loss of joint space, osteophytes, or erosions. No ankle effusion. No radiopaque foreign body. Severe swelling in the medial ankle. IMPRESSION: 1. Mottled navicular bone with multiple lucencies favoring osteomyelitis. 2. Avulsion fracture of the proximal/medial navicular bone. Critical Care Time Critical Care Time Total Critical Care Time: 60 Attestation: I have personally provided critical care time. Time includes review of lab data, radiology results, discussion with consultants, and monitoring for potential decompensation. Intervention performed as documented. Discharge Plan Discharge Clinical Impression: Closed navicular fracture of ankle, Osteomyelitis of ankle and foot Patient Disposition: Admitted As Inpatient Prescriptions: No Action ibuprofen 400 mg Tablet 400 mg PO TIDWM PRN (Reason: Pain (Scale Score 7-10)) Qty: 30 0RF methadone [Methadose] 10 mg/mL Concentrate 50 mg PO DAILY Qty: 5 0RF Rx Instructions: Partial Fill upon patient request. doxycycline monohydrate 100 mg tablet 100 mg PO BID Qty: 14 0RF cephalexin 500 mg capsule 500 mg PO BID Qty: 14 0RF (DME) cane Device See Rx Instructions .Route Qty: 1 0RF Rx Instructions: As directed Print Language: Hebrew
--- NOTE | 2024-08-18 22:23 | MHC.EDTECH ---
Patient brought into triage area,labs,and both sets of blood cultures obtained and sent to lab, patient requested a sandwich, T/W asked provider,pt was given a turkey sandwich and a can of janny tonya
[2024-08-18 22:31] LABS: MANUAL DIFF FLAG NO
[2024-08-18 22:32] LABS: Basophils Absolute Auto 0.1 X10*3/uL (0.0-0.2); Basophils Percent Auto 0.4 % (0-2); Eosinophils Percent Auto 0.1 % (0-4); Hematocrit 42.2 % (42.0-52.0); Hemoglobin 14.4 g/dl (14.0-18.0); Imm Gran Abs Auto 0.05 X10*3/uL (0.00-0.03); Imm Gran Pct Auto 0.3 % (0.0-0.4); Lymphocytes Absolute Auto 4.1 X10*3/uL (1.2-4.9); Mean Corpuscular HGB Conc 34.1 g/dl (31.0-36.0); Mean Corpuscular Hemoglobin 29.1 pg (27.0-33.0); Mean Corpuscular Volume 85.4 fL (80.0-98.0); Mean Platelet Volume 8.4 fL (9.4-12.4); Monocytes Absolute Auto 0.8 X10*3/uL (0.1-1.2); Monocytes Percent Auto 5.5 % (2-11); Neutrophils Absolute Auto 10.2 x10*3/uL (2.0-8.3); Neutrophils Percent Auto 66.7 % (45-73); Platelet Count 629 X10*3/uL (160-400); Red Blood Count 4.94 X10*6/uL (4.60-5.80); White Blood Count 15.2 X10*3/uL (4.8-10.8)
[2024-08-18 22:53] LABS: Alanine Aminotransferase 31 U/L (0-40); Albumin Level 3.9 g/dL (3.5-5.0); Alkaline Phosphatase 76 U/L (39-117); Anion Gap 16 (12-20); Aspartate Amino Transferase 22 U/L (5-37); Bilirubin Direct 0.3 mg/dL (0.0-0.5); Bilirubin Total 0.6 mg/dL (0.0-1.0); Blood Urea Nitrogen 12 mg/dL (9-16); C Reactive Protein 7.25 mg/dL (< or = 0.50); Calcium 9.8 mg/dL (8.4-10.2); Carbon Dioxide 24 mmol/L (22-29); Chloride 101 mmol/L (96-108); Creatinine Clr Calc Pharmacy 149.7; Estimated Glomerular Filt Rate > 60; Glucose Random 104 mg/dL (60-115); Lactic Acid 0.9 mmol/L (0.5-2.0); Lipase 17 U/L (8-78); Magnesium 2.1 mg/dL (1.6-2.6); Potassium 3.7 mmol/L (3.3-5.1); Sodium 137 mmol/L (135-145); Total Protein 9.4 g/dL (6.5-8.0)
[2024-08-18 23:16] LABS: Erythrocyte Sedimentation Rate 70 MM/HR (0-15)
[2024-08-18] MEDS: Ibuprofen 600 MG TABLET PO (23:33)
[2024-08-19] VITALS (15 sets, daily range): BP systolic 107–138; BP diastolic 48–90; PULSE 58–92; RESP 15–25; TEMP 36.1–36.7; O2SAT 92–100
[2024-08-19] MEDS: Piperacillin Sodium/Tazobactam 4.5 GM in 0.9 % Sodium Chloride 100 ML IV ×3 (00:57→17:51)
[2024-08-19] MEDS: Morphine Sulfate 4 MG/ML CARTRIDGE IVPUSH ×3 (00:58→22:57)
[2024-08-19] MEDS: 0.9 % Sodium Chloride 1,000 ML 999 ML IVCONT (00:59)
[2024-08-19] MEDS: methADONE HCl 20 MG/2 ML ORAL.CONC 40 MG PO (01:07)
--- NOTE | 2024-08-19 01:26 | PM.IMHP ---
History of Present Illness Date of Service: 08/19/24 Attending physician on admission: [facility] Chief Complaint: R foot pain Patient is a 34-year-old male with a past medical history significant for IV drug use, hep C (current w/u for tx) and MRSA, who presented to the ED due to right foot pain and swelling after rolling his ankle a few days ago. He reports that the swelling and redness as well as pain have increased over the last 2 days. He has been able to walk on it up until today. He rates his pain an 8/10 when he arrived, however now about a 5/10. He reports that he has not been able to get his methadone from [facility] as he has had such terrible pain he has not been able to get out of bed. He ended up using heroin he found in the house 3 days ago. He reports a history of MRSA and sacroiliitis in 2016. He has had chills and has felt unwell but feels this is related to withdrawal from the methadone. No drainage from the injury. Review of Systems Constitutional: Constitutional: Reports body ache(s), Reports chills, Denies fatigue and Denies headache(s) Eyes: Eyes: Denies change in vision and Denies photophobia ENT: Denies headache(s), Denies nasal congestion and Denies nasal discharge Cardiovascular: Cardiovascular: Denies chest pain, Denies rapid heart rate, Denies leg edema, Denies lightheadedness and Denies dyspnea Respiratory: Respiratory: Denies chest congestion, Denies cough, Denies dyspnea and Denies wheezing Gastrointestinal: Gastrointestinal: Denies nausea and Denies vomiting Genitourinary: Genitourinary: Denies hematuria, Denies difficulty urinating, Denies urinary frequency and Denies urinary urgency Musculoskeletal: Musculoskeletal: Reports as per HPI Integumentary/Breasts: Skin/Breast: Reports as per HPI Neurologic: Denies confusion and Denies headache(s) Psychiatric: Psychiatric: Denies confusion Endocrine: Endocrine: Denies fatigue Hematologic/Lymphatic: Hematologic/Lymphatic: Denies easy bleeding and Denies easy bruising Allergic/Immunologic: Allergic/Immunologic: Denies wheezing [facility] Medical History Polysubstance use disorder Social History Household Members: None Housing: Homeless Do you presently have visiting nurse or other home services: No Patient Tobacco Use Status: Current everyday Tobacco user Tobacco use type: Cigarette Cigarette Packs Per Day: 10 Cigarettes Per Day: 200.0 Smoked in Last 30 Days: No e-Cigarette/Vaping Use: Never Used Use of substances other than those prescribed or required for medical reasons: Yes Substance Use Type: Prescription Drugs Substance Use Type Other:: prescription methadone Substance Use Frequency: Daily Advance Directives: No Advance Directives Information Provided: Yes service: No Narrative: Smokes about 5 cigarettes per day, no alcohol, reports last IV drug use about 3 days ago, was on methadone 140 mg however has not been able to get dose due to pain with ambulation Meds Allergies Allergy/AdvReac Type Severity Reaction Status Date / Time No Known Allergies Allergy Verified 08/18/24 21:43 Active Medications: Current Medications Sodium Chloride (Ns) 1,000 mls @ 999 mls/hr IVCONT .Q1H1M ONE Stop: 08/19/24 01:39 Last Admin: 08/19/24 00:59 Dose: 999 mls/hr Vancomycin HCl 1,000 mg/Vancomycin HCl 750 mg/ Sodium Chloride 535 mls @ 267.5 mls/hr IV ONCE ONE Stop: 08/19/24 02:38 Physical Exam Vital Signs and Narrative: Vital Signs: Last Vital Signs Temp 98.5 F 08/18/24 21:42 Pulse 90 08/18/24 21:42 Resp 18 08/18/24 21:42 BP 147/95 H 08/18/24 21:42 Pulse Ox 100 08/18/24 21:42 O2 Del Method Room Air 08/18/24 21:42 BMI result Body Mass Index 23.0 General: AOx3, no acute distress Resp: CTA bilaterally CVS: S1, S2, RRR GI: +BS, NT, no distention Skin: Warm, dry Neuro: Cranial nerves II-XII grossly intact bilaterally. Motor grossly intact bilaterally Extremities: Swelling and erythema right medial foot. Warm to touch. No drainage. Psych: Appropriate affect Const: General: No confusion Orientation/consciousness: No confusion Eyes: Direct Ophthalmoscopy: No photophobia Neuro: General: No confusion Results Labs 08/18/24 22:19 08/18/24 22:19 Labs: Laboratory Results - last 24 hr 08/18/24 22:19 MCV 85.4 MCH 29.1 MCHC 34.1 RDW 12.0 Plt Count 629 H D MPV 8.4 L Immature Gran % (Auto) 0.3 Neut % (Auto) 66.7 Lymph % (Auto) 27.0 [place] % (Auto) 5.5 Eos % (Auto) 0.1 Baso % (Auto) 0.4 Lymph # (Auto) 4.1 [place] # (Auto) 0.8 Eos # (Auto) 0.0 Baso # (Auto) 0.1 Abs Immat Gran (auto) 0.05 H Absolute Neuts (auto) 10.2 H Absolute Nucleated RBC 0.000 Nucleated RBC % (auto) 0.0 ESR 70 H Anion Gap 16 Estim Creat Clear Calc 149.7 Estimated GFR > 60 Random Glucose 104 Lactic Acid 0.9 Calcium 9.8 D Magnesium 2.1 Total Bilirubin 0.6 Direct Bilirubin 0.3 AST 22 ALT 31 Alkaline Phosphatase 76 Total Creatine Kinase 19 L C-Reactive Protein 7.25 H Total Protein 9.4 H Albumin 3.9 Lipase 17 Assessment and Plan (1) Osteomyelitis of ankle and foot: Status: Acute (2) Closed navicular fracture of ankle: Status: Acute Plan Patient is a 34-year-old male with a past medical history significant for IV drug use, hep C (current w/u for tx) and MRSA, who presented to the ED due to right foot pain and swelling after rolling his ankle a few days ago. osteomyelitis/closed navicular fracture right foot - WBC 15.2, borderline tachycardic (likely due to opioid/methadone withdrawal), lactic acid normal, no sepsis - x-ray right foot/ankle - mottled navicular bone with multiple lucencies favoring osteomyelitis, avulsion fracture of the proximal/medial navicular bone - patient started on Zosyn and vancomycin, continue - given 1 L normal saline - case discussed with ortho by ED provider, they requested general surgery consult as well - NPO - admit for IV antibiotics and surgical consultation - monitor CBC and BMP Substance use disorder - will need dose verified from [facility] - given 40 mg methadone in ED Hep C - not yet treated, continue follow-up outpatient Full code VTE prophylaxis: Pneumoboots contraindicated due to pain as well as anticoagulant due to possible surgery Patient with osteomyelitis from closed navicular fracture right foot, requiring admission for IV antibiotics and surgical consultation, for at least 2 midnights stay. Quality Stroke Does the patient have a stroke diagnosis?: No VTE Prior VTE?: No VTE Risk Level:: Medical - moderate - high VTE Device Contraindication: Treatment Not Tolerated VTE Drug Contraindication: Treatment Not Indicated
[2024-08-19] MEDS: vancomycin HCL 1,000 MG, vancomycin HCL 750 MG in 0.9 % Sodium Chloride 500 ML 267.5 MG IV (02:11)
[2024-08-19] MEDS: HYDROmorphone HCl 1 MG/ML SYRINGE 0.5 MG IVPUSH ×3 (02:38→20:28)
[2024-08-19 05:54] LABS: Hematocrit 35.4 % (42.0-52.0); Mean Corpuscular HGB Conc 33.9 g/dl (31.0-36.0); Mean Corpuscular Hemoglobin 29.3 pg (27.0-33.0); Mean Corpuscular Volume 86.6 fL (80.0-98.0); Mean Platelet Volume 8.2 fL (9.4-12.4); Platelet Count 453 X10*3/uL (160-400); Red Blood Count 4.09 X10*6/uL (4.60-5.80); Red Cell Distribution Width 12.3 % (11.0-16.0); White Blood Count 13.1 X10*3/uL (4.8-10.8)
[2024-08-19 06:07] LABS: Anion Gap 12 (12-20); Blood Urea Nitrogen 14 mg/dL (9-16); Calcium 8.4 mg/dL (8.4-10.2); Carbon Dioxide 24 mmol/L (22-29); Chloride 108 mmol/L (96-108); Creatinine Clr Calc Pharmacy 163.7; Estimated Glomerular Filt Rate > 60; Glucose Random 100 mg/dL (60-115); Potassium 4.1 mmol/L (3.3-5.1); Sodium 140 mmol/L (135-145)
--- NOTE | 2024-08-19 07:26 | PHA.PROG ---
Admission Date/Time: August 19, 2024 01:41 Indication:BONE AND JOINT Weight in k.575 kg Serum Creatinine - Last 168 Hours 08/18/24 08/19/24 22:19 05:34 Creatinine 0.70 0.64 Estimated CrCl and GFR - Last 168 Hours 08/18/24 08/19/24 22:19 05:34 Estim Creat Clear Calc 149.7 163.7 Estimated GFR > 60 > 60 Vancomycin Loading Dose: 1750 Current Vancomycin Dosing Regimen: 1500 Q 12H Vancomycin Monitoring using AUC goal of 400 - 600 range with trough as surrogate marker: 555 Date and Time for next Vancomycin Level to be drawn: 08/20 @ 0900 Pharmacist Comments on Vancomycin Plan: Vancomycin dosing will take advantage of [employer] as a clinical decision support tool that uses Bayesian modeling to calculate individual patient's pharmacokinetic parameters and forecast the patient's drug concentration time course with the target goal AUC 24 range of 400 - 600 mg/L/hr.
--- NOTE | 2024-08-19 07:53 | P.EN_ITS ---
Event Note Date of Service: 08/19/24 Event Note: 34 year old male evaluated in the ED this morning reports R ankle/ foot pain that's worse w/ movement better at rest. Pain improves however after pain meds. Denies numbness, tingling, weakness of LE, fevers, chills, calf pain or swelling. Plan is I&D of R foot later today in the OR patient to remain NPO osteomyelitis/closed navicular fracture right foot - WBC 15.2, borderline tachycardic (likely due to opioid/methadone withdrawal), lactic acid normal, no sepsis - x-ray right foot/ankle - mottled navicular bone with multiple lucencies favoring osteomyelitis, avulsion fracture of the proximal/medial navicular bone - patient started on Zosyn and vancomycin, continue - given 1 L normal saline - case discussed with ortho by ED provider, they requested general surgery consult as well - NPO - admit for IV antibiotics and surgical consultation - monitor CBC and BMP - Plan is I&D of R foot later today 08/19 in the OR patient to remain NPO Substance use disorder - will need dose verified from [facility] - given 40 mg methadone in ED Hep C - not yet treated, continue follow-up outpatient Code status: Full code VTE prophylaxis: Pneumoboots contraindicated due to pain as well as anticoagulant due to possible surgery Time Spent With Patient Time: Total time managing care of this patient today 15 minutes.
--- NOTE | 2024-08-19 09:22 | PHA.MEDREC ---
Pharmacy Consult ? Medication Reconciliation Pharmacy has completed the medication reconciliation. Spoke to pt to confirm meds. Only is on methadone, per pt.
--- NOTE | 2024-08-19 09:33 | P.CONOP_ITS ---
History of Present Illness HPI Consult date: 08/19/24 Chief complaint: sepsis, osteomyelitis, R food fx Narrative: Patient is a 34-year-old male with past medical history significant for IV drug use presents to the hospital for redness, swelling, pain of the right foot Patient reports that the only known injury or incident was a fall approximately 1 week ago Patient states that he noticed his foot getting significantly more red, swollen, painful after time X-rays taken in the ED did show navicular fracture of the right foot, however did also demonstrate radiographic evidence of osteomyelitis of the navicular bone Denies injecting into the right foot Today, patient reports that he is still in a very significant amount of pain Has been unable to weightbear for approximately 5 days States his foot is not numb but does feel ?kind of asleep? No other acute complaints or concerns at this time PMFSH Past Medical History Medical History Polysubstance use disorder Social History Social History Household Members: None Housing: Homeless Do you presently have visiting nurse or other home services: No Patient Tobacco Use Status: Current everyday Tobacco user Tobacco use type: Cigarette Cigarette Packs Per Day: 10 Cigarettes Per Day: 200.0 Smoked in Last 30 Days: No e-Cigarette/Vaping Use: Never Used Use of substances other than those prescribed or required for medical reasons: Yes Substance Use Type: Prescription Drugs Substance Use Type Other:: prescription methadone Substance Use Frequency: Daily Advance Directives: No Advance Directives Information Provided: Yes service: No Meds Allergies Allergy/AdvReac Type Severity Reaction Status Date / Time No Known Allergies Allergy Verified 08/18/24 21:43 Active Medications: Current Medications Acetaminophen (Acetaminophen 325 Mg Tablet) 975 mg PO Q6H PRN PRN Reason: Pain, Mild 1-3,fever,headache Calcium Carbonate (Calcium Carbonate 750 Mg Tab.Chew) 750 mg PO Q4H PRN PRN Reason: Heartburn Hydromorphone HCl (Hydromorphone Hcl 1 Mg/Ml Syringe) 0.5 mg IVPUSH Q4H PRN; Protocol PRN Reason: Pain, Severe (Pain Scale 7-10) Last Admin: 08/19/24 02:38 Dose: 0.5 mg Piperacillin Sod/Tazobactam (Sod 4.5 gm/ Sodium Chloride) 100 mls @ 200 mls/hr IV Q8H [facility] Vancomycin HCl 1,500 mg/ (Sodium Chloride) 500 mls @ 333.333 mls/hr IV Q12H [facility] Ketorolac Tromethamine (Ketorolac Tromethamine 30 Mg/Ml Vial) 30 mg IVPUSH Q6H PRN PRN Reason: Pain, Mild (Pain Scale 1-3) Stop: 08/24/24 01:40 Magnesium Hydroxide (Milk Of Magnesia 30 Ml Oral.Susp) 30 ml PO DAILY PRN PRN Reason: Constipation Melatonin (Melatonin 3 Mg Tablet) 6 mg PO BEDTIME PRN PRN Reason: Insomnia Morphine Sulfate (Morphine Sulfate 4 Mg/Ml Cartridge) 4 mg IVPUSH Q4H PRN; Protocol PRN Reason: Pain, Moderate(Pain Scale 4-6) Last Admin: 08/19/24 04:52 Dose: 4 mg Nicotine Polacrilex (Nicotine Polacrilex 2 Mg Gum) 2 mg BUCCAL Q2H PRN PRN Reason: Nicotine Cravings Ondansetron HCl (Ondansetron Hcl 4 Mg/2 Ml Vial) 4 mg IVPUSH Q8H PRN PRN Reason: Nausea and Vomiting Pharmacy Consult (Consult Rx Vancomycin Dosing) 1 each MISCELLANE DAILY PRN PRN Reason: Consult order Sodium Chloride (0.9 % Sodium Chloride Flush 3 Ml Syringe) [facility] Medications ?Medication ?Instructions ?Recorded ?Confirmed ?Last Taken ?Type methadone 10 mg/mL oral 140 mg PO DAILY 08/19/24 Unknown History concentrate (Methadose) Physical Exam 2 Vital Signs: Vital Signs: Last Vital Signs Temp 98.0 F 08/19/24 05:00 Pulse 58 08/19/24 05:00 Resp 17 08/19/24 05:00 BP 107/58 L 08/19/24 05:00 Pulse Ox 98 08/19/24 05:00 O2 Del Method Room Air 08/19/24 05:00 BMI result Body Mass Index 23.0 Extrem: Other: Patient's right foot edematous and erythematous, particularly on medial aspect the level of the navicular bone There is visible purulence under the skin No lacerations, abrasions, open areas Patient reports extremely significant tenderness to palpation of the medial aspect of the right foot, at around the level of the erythema and purulence Range of motion of the right foot minimal due to pain Distal sensation intact Capillary refill brisk Results Labs 08/19/24 05:34 08/19/24 05:34 Labs: Abnormal lab results 08/18/24 08/19/24 Range/Units 22:19 05:34 WBC 15.2 H 13.1 H (4.8-10.8) X10*3/uL RBC 4.09 L (4.60-5.80) X10*6/uL Hgb 12.0 L (14.0-18.0) g/dl Hct 35.4 L (42.0-52.0) % Plt Count 629 H D 453 H D (160-400) X10*3/uL MPV 8.4 L 8.2 L (9.4-12.4) fL Abs Immat Gran (auto) 0.05 H (0.00-0.03) X10*3/uL Absolute Neuts (auto) 10.2 H (2.0-8.3) x10*3/uL ESR 70 H (0-15) MM/HR Total Creatine Kinase 19 L (38-174) U/L C-Reactive Protein 7.25 H (< or = 0.50) mg/dL Total Protein 9.4 H (6.5-8.0) g/dL H & H 08/18/24 08/19/24 Range/Units 22:19 05:34 Hgb 14.4 D 12.0 L (14.0-18.0) g/dl Hct 42.2 35.4 L (42.0-52.0) % All other labs normal. Diagnostic results Ankle/Foot x-ray: report reviewed and image reviewed (X-rays obtained in the office today and independently reviewed by me, Eligio Mireles PA-C, demonstrate minimally displaced fracture of the navicular bone of the right foot, there is also noted to be radiographic mottling of the navicular bone consistent with osteomyelitis. ) Ankle/Foot MRI: pending Assessment and Plan (1) Osteomyelitis of ankle and foot: Status: Acute (2) Closed navicular fracture of ankle: Status: Acute (3) Abscess of right foot: Status: Acute Plan 1. Abscess of the right foot 2. Osteomyelitis of right navicular bone 3. Fracture of right navicular bone The case was discussed with Dr. Alejandro, and a collaborative treatment plan was formed: I educated the patient about the condition. I discussed both operative and nonoperative treatment options. The patient would like to proceed with surgery. The risks and benefits of operative treatment were discussed with the patient and the patient wishes to proceed with surgery. These risks include, but are not limited to, risk of damage to blood vessels, nerves, tendons, infection, recurrence, incomplete relief of preoperative symptoms, persistent pain, possible need for further surgery, and the risks associated with regional blocks and/or anesthesia. Plan is to take the patient to the operating room at 15:00 today for the following procedures: 1. Irrigation and debridement of right foot Patient has been NPO since midnight, continue NPO status Patient should be totally nonweightbearing on right lower extremity Continue IV antibiotics per Medicine Continue pain management and all other recommendations per Medicine Procedures Date of Service Date of Service: 08/19/24
--- NOTE | 2024-08-19 09:35 | PM.EVENT ---
Event Note Date of Service: 08/19/24 Event Note: I was told by Ortho that they will see the patient because of foot fracture with osteomyelitis - no need for me to see pt Time Spent With Patient Time: Total time managing care of this patient today ____ minutes.
[2024-08-19] MEDS: 0.9 % Sodium Chloride Flush 3 ML SYRINGE IVFLUSH ×3 (10:26→20:29)
--- NOTE | 2024-08-19 11:27 | PC.NURSE ---
Attempted to verify Methadone dose with [facility] Daniel. [phone] No answer at this time, will reattempt.
--- NOTE | 2024-08-19 11:40 | PC.NURSE ---
Pt taken to MRI
[2024-08-19] MEDS: gadobutroL 7.5 ML VIAL IVPUSH (12:59)
--- NOTE | 2024-08-19 13:02 | MHC.CM.PN ---
PT REPORTS HE IS HOMELESS AND HAD BEEN STAYING WITH A FRIEND [employer], BUT DOES NOT THINK HE CAN RETURN HE WAS TOLD HE MAY NEED LT IV ABX, HE UNDERSTANDS THAT WOULD HAVE TO BE DONE IN A SNF HE DOES NOT HAVE A PCP FOR VNA SERVICES PT STATES, IF HE DOES NOT REQUIRE IV MEDS, HE HOPES HE CAN DC TO A [facility] AND WILL CALL THEM TO DISCUSS THIS EARLY POSSIBLE PT STATES HE IS ACTIVE WITH M[facility] AT [facility], HIS COUNSELORS NAME IS TRACEY HE WAS USING A CANE, BUT STATES HE HAS NOT BEEN ABLE TO AMBULATE FOR THE PAST 5 DAYS PT HAS NO PCP AND DECLINES A HCP (HE IS AWARE HE WILL HAVE TO DO ONE IF SNF PLACEMENT IS NECESSARY) PTS PREFERRED DCP: FRIEND OR [facility] PT AWARE HE MAY REQUIRE SNF PLACEMENT FOR IV ABX AND THIS WOULD LIKELY BE IN [place] DUE TO MMT TRANSPORT TBD BY DISPOSITION
--- NOTE | 2024-08-19 13:04 | HE.PHANOTE ---
RE METHADONE Patient confirmed to be recieving methadone from [facility], dose was 140 mg, last dose given 08/03/24 with 2 take home bottles.
--- NOTE | 2024-08-19 14:43 | HO.ANESPROP2 ---
HPI - Anesthesia Eval Consult details Narrative: Right foot abscess PMFSH Active Problems Active Problems: All Active Problems Abscess of right foot (Acute) Sepsis (Acute) Osteomyelitis of ankle and foot (Acute) Closed navicular fracture of ankle (Acute) Past Medical History Medical History Polysubstance use disorder Family History Family history of problems with anesthesia: No Surgical History History of Problems with Anesthesia: No Social History Social History Household Members: None Housing: Homeless Do you presently have visiting nurse or other home services: No Patient Tobacco Use Status: Current everyday Tobacco user Tobacco use type: Cigarette Cigarette Packs Per Day: 10 Cigarettes Per Day: 200.0 e-Cigarette/Vaping Use: Never Used Substance Use Type: Prescription Drugs service: No Meds Allergies Allergy/AdvReac Type Severity Reaction Status Date / Time No Known Allergies Allergy Verified 08/18/24 21:43 Active Medications: Current Medications Acetaminophen (Acetaminophen 325 Mg Tablet) 975 mg PO Q6H PRN PRN Reason: Pain, Mild 1-3,fever,headache Calcium Carbonate (Calcium Carbonate 750 Mg Tab.Chew) 750 mg PO Q4H PRN PRN Reason: Heartburn Hydromorphone HCl (Hydromorphone Hcl 1 Mg/Ml Syringe) 0.5 mg IVPUSH Q4H PRN; Protocol PRN Reason: Pain, Severe (Pain Scale 7-10) Last Admin: 08/19/24 10:21 Dose: 0.5 mg Piperacillin Sod/Tazobactam (Sod 4.5 gm/ Sodium Chloride) 100 mls @ 200 mls/hr IV Q8H [facility] Last Infusion: 08/19/24 13:35 Dose: Infused Vancomycin HCl 1,500 mg/ (Sodium Chloride) 500 mls @ 333.333 mls/hr IV Q12H [facility] Ketorolac Tromethamine (Ketorolac Tromethamine 30 Mg/Ml Vial) 30 mg IVPUSH Q6H PRN PRN Reason: Pain, Mild (Pain Scale 1-3) Stop: 08/24/24 01:40 Magnesium Hydroxide (Milk Of Magnesia 30 Ml Oral.Susp) 30 ml PO DAILY PRN PRN Reason: Constipation Melatonin (Melatonin 3 Mg Tablet) 6 mg PO BEDTIME PRN PRN Reason: Insomnia Morphine Sulfate (Morphine Sulfate 4 Mg/Ml Cartridge) 4 mg IVPUSH Q4H PRN; Protocol PRN Reason: Pain, Moderate(Pain Scale 4-6) Last Admin: 08/19/24 04:52 Dose: 4 mg Nicotine Polacrilex (Nicotine Polacrilex 2 Mg Gum) 2 mg BUCCAL Q2H PRN PRN Reason: Nicotine Cravings Ondansetron HCl (Ondansetron Hcl 4 Mg/2 Ml Vial) 4 mg IVPUSH Q8H PRN PRN Reason: Nausea and Vomiting Pharmacy Consult (Consult Rx Vancomycin Dosing) 1 each MISCELLANE DAILY PRN PRN Reason: Consult order Sodium Chloride (0.9 % Sodium Chloride Flush 3 Ml Syringe) 3 ml IVFLUSH [facility] Last Admin: 08/19/24 10:26 Dose: 3 ml Home Medications ?Medication ?Instructions ?Recorded ?Confirmed ?Last Taken ?Type methadone 10 mg/mL oral 140 mg PO DAILY 08/19/24 08/19/24 08/03/24 History concentrate (Methadose) Exam Height,Weight and Vital Signs: Height 5 ft 10 in Weight 72.575 kg Last Vital Signs Temp 98.0 F 08/19/24 05:00 Pulse 58 08/19/24 05:00 Resp 25 H 08/19/24 10:21 BP 107/58 L 08/19/24 05:00 Pulse Ox 98 08/19/24 05:00 O2 Del Method Room Air 08/19/24 05:00 Pertinent Lab Results Pertinent Lab Results: Laboratory Tests 08/18/24 08/19/24 22:19 05:34 WBC 15.2 H 13.1 H RBC 4.94 D 4.09 L Hgb 14.4 D 12.0 L Hct 42.2 35.4 L MCV 85.4 86.6 MCH 29.1 29.3 MCHC 34.1 33.9 RDW 12.0 12.3 Plt Count 629 H D 453 H D MPV 8.4 L 8.2 L Immature Gran % (Auto) 0.3 Neut % (Auto) 66.7 Lymph % (Auto) 27.0 Andrews % (Auto) 5.5 Eos % (Auto) 0.1 Baso % (Auto) 0.4 Lymph # (Auto) 4.1 Andrews # (Auto) 0.8 Eos # (Auto) 0.0 Baso # (Auto) 0.1 Abs Immat Gran (auto) 0.05 H Absolute Neuts (auto) 10.2 H Absolute Nucleated RBC 0.000 0.000 Nucleated RBC % (auto) 0.0 0.0 ESR 70 H Sodium 137 140 Potassium 3.7 4.1 Chloride 101 108 Carbon Dioxide 24 24 Anion Gap 16 12 BUN 12 14 Creatinine 0.70 0.64 Estim Creat Clear Calc 149.7 163.7 Estimated GFR > 60 > 60 Random Glucose 104 100 Lactic Acid 0.9 Calcium 9.8 D 8.4 D Magnesium 2.1 Total Bilirubin 0.6 Direct Bilirubin 0.3 AST 22 ALT 31 Alkaline Phosphatase 76 Total Creatine Kinase 19 L C-Reactive Protein 7.25 H Total Protein 9.4 H Albumin 3.9 Lipase 17 Airway Mallampati Class: II TM Dist: >3cm Neck ROM: Full Loose/Missing/Broken Teeth: No Heart: RRR Lungs: CTA Assessment and Plan Assessment Anesthesia Assessment: Anesthesia Plan Discussed and Chart Reviewed Final Anesthetic Review Family History of Problems with Anesthesia: No History of Problems with Anesthesia: No NPO: Yes ASA Class: II and Emergency Final Preanesthetic Review: No Changes in Pt Med Stat, Meds/Allgs Chart Reviewed, Consent Obtained/Reviewed and Anes Risks/Benef Reviewed Patient Risk: Intermediate Procedure Risk: Low Anesthetic Plan Anesthetic Plan: GA Disposition: Standard PACU
--- NOTE | 2024-08-19 15:17 | PM.CNOR ---
History of Present Illness HPI Consult date: 08/19/24 Consult reason: joint pain Chief complaint: sepsis, osteomyelitis, R food fx Narrative: Patient is a 34-year-old man who has pain and swelling in the medial aspect of his right foot. He says this all began when he twisted his foot on ice about a week ago. He reports that prior to that he was walking on his foot without difficulty. He is a current IV drug user who claims to have last used about 4 days ago. [facility] Past Medical History Medical History Polysubstance use disorder Social History Social History Household Members: None Housing: Homeless Do you presently have visiting nurse or other home services: No Patient Tobacco Use Status: Current everyday Tobacco user Tobacco use type: Cigarette Cigarette Packs Per Day: 10 Cigarettes Per Day: 200.0 e-Cigarette/Vaping Use: Never Used Substance Use Type: Prescription Drugs service: No Meds Allergies Allergy/AdvReac Type Severity Reaction Status Date / Time No Known Allergies Allergy Verified 08/18/24 21:43 Active Medications: Current Medications Acetaminophen (Acetaminophen 325 Mg Tablet) 975 mg PO Q6H PRN PRN Reason: Pain, Mild 1-3,fever,headache Calcium Carbonate (Calcium Carbonate 750 Mg Tab.Chew) 750 mg PO Q4H PRN PRN Reason: Heartburn Hydromorphone HCl (Hydromorphone Hcl 1 Mg/Ml Syringe) 0.5 mg IVPUSH Q4H PRN; Protocol PRN Reason: Pain, Severe (Pain Scale 7-10) Last Admin: 08/19/24 10:21 Dose: 0.5 mg Hydromorphone HCl (Hydromorphone Hcl 0.5 Mg/0.5 Ml Syringe) 0.5 mg IVPUSH Q5M PRN PRN Reason: Pain, Moderate to Severe (Pain Scale 4-10) Stop: 08/19/24 20:46 Piperacillin Sod/Tazobactam (Sod 4.5 gm/ Sodium Chloride) 100 mls @ 200 mls/hr IV Q8H [facility] Last Infusion: 08/19/24 13:35 Dose: Infused Vancomycin HCl 1,500 mg/ (Sodium Chloride) 500 mls @ 333.333 mls/hr IV Q12H [facility] Acetaminophen (Ofirmev) 1,000 mg in 100 mls @ 400 mls/hr IV ONCE PRN PRN Reason: Pain, Mild (Pain Scale 1-3) Stop: 08/19/24 20:46 Ketorolac Tromethamine (Ketorolac Tromethamine 30 Mg/Ml Vial) 30 mg IVPUSH Q6H PRN PRN Reason: Pain, Mild (Pain Scale 1-3) Stop: 08/24/24 01:40 Ketorolac Tromethamine (Ketorolac Tromethamine 30 Mg/Ml Vial) 30 mg IVPUSH ONCE PRN PRN Reason: Pain, Severe (Pain Scale 7-10) Stop: 08/19/24 20:46 Magnesium Hydroxide (Milk Of Magnesia 30 Ml Oral.Susp) 30 ml PO DAILY PRN PRN Reason: Constipation Melatonin (Melatonin 3 Mg Tablet) 6 mg PO BEDTIME PRN PRN Reason: Insomnia Methadone HCl (Methadone Hcl 20 Mg/2 Ml Oral.Conc) 40 mg PO DAILY [facility] Morphine Sulfate (Morphine Sulfate 4 Mg/Ml Cartridge) 4 mg IVPUSH Q4H PRN; Protocol PRN Reason: Pain, Moderate(Pain Scale 4-6) Last Admin: 08/19/24 04:52 Dose: 4 mg Naloxone HCl (Naloxone Hcl 0.4 Mg/Ml Vial) 0.04 mg IVPUSH Q5M PRN PRN Reason: Excessive sedation or RR < 8 Nicotine Polacrilex (Nicotine Polacrilex 2 Mg Gum) 2 mg BUCCAL Q2H PRN PRN Reason: Nicotine Cravings Ondansetron HCl (Ondansetron Hcl 4 Mg/2 Ml Vial) 4 mg IVPUSH Q8H PRN PRN Reason: Nausea and Vomiting Ondansetron HCl (Ondansetron Hcl 4 Mg/2 Ml Vial) 4 mg IVPUSH ONCE PRN PRN Reason: Nausea and Vomiting Stop: 08/19/24 20:46 Pharmacy Consult (Consult Rx Vancomycin Dosing) 1 each MISCELLANE DAILY PRN PRN Reason: Consult order Sodium Chloride (0.9 % Sodium Chloride Flush 3 Ml Syringe) 3 ml IVFLUSH QSHIFT [facility] Last Admin: 08/19/24 10:26 Dose: 3 ml Home Medications ?Medication ?Instructions ?Recorded ?Confirmed ?Last Taken ?Type methadone 10 mg/mL oral 140 mg PO DAILY 08/19/24 08/19/24 08/03/24 History concentrate (Methadose) Physical Exam Vital Signs: Vital Signs: Last Vital Signs Temp 98.0 F 08/19/24 05:00 Pulse 58 08/19/24 05:00 Resp 25 H 08/19/24 10:21 BP 107/58 L 08/19/24 05:00 Pulse Ox 98 08/19/24 05:00 O2 Del Method Room Air 08/19/24 05:00 BMI result Body Mass Index 23.0 Const: General: cooperative, healthy appearing and no acute distress Orientation/consciousness: oriented to person and oriented to place HEENT: Head: Yes normocephalic and Yes atraumatic Eyes: EOM: EOMs intact bilaterally Resp: Effort & Inspection: normal respiratory effort and able to speak in complete sentences Cardio: Jugular venous distension: no JVD Skin: General skin exam: turgor normal Rashes: no rashes Neuro: General: oriented to person and oriented to place Extrem: Other: Evaluation of right lower Extremity: He has a significant area of focal swelling and redness over the medial aspect of the right foot/ankle. There is a central area of fluctuance that measures at least 4 cm in diameter that is also his area of maximal tenderness. This is most consistent with an abscess. He says he has some decreased sensation to his toes. He can flex and extend his toes but does not want to flex and extend his ankle secondary to pain Radiographs: Radiographs three views of the right foot appear to show bony involvement of the navicular bone of the foot. This appears to be most consistent with osteomyelitis Psych: Appearance: grossly normal Affect: normal affect Attitude: cooperative Results Labs 08/19/24 05:34 08/19/24 05:34 Labs: Abnormal lab results 08/18/24 08/19/24 Range/Units 22:19 05:34 WBC 15.2 H 13.1 H (4.8-10.8) X10*3/uL RBC 4.09 L (4.60-5.80) X10*6/uL Hgb 12.0 L (14.0-18.0) g/dl Hct 35.4 L (42.0-52.0) % Plt Count 629 H D 453 H D (160-400) X10*3/uL MPV 8.4 L 8.2 L (9.4-12.4) fL Abs Immat Gran (auto) 0.05 H (0.00-0.03) X10*3/uL Absolute Neuts (auto) 10.2 H (2.0-8.3) x10*3/uL ESR 70 H (0-15) MM/HR Total Creatine Kinase 19 L (38-174) U/L C-Reactive Protein 7.25 H (< or = 0.50) mg/dL Total Protein 9.4 H (6.5-8.0) g/dL H & H 08/18/24 08/19/24 Range/Units 22:19 05:34 Hgb 14.4 D 12.0 L (14.0-18.0) g/dl Hct 42.2 35.4 L (42.0-52.0) % All other labs normal. Assessment and Plan (1) Abscess of right foot: Status: Acute (2) Osteomyelitis of ankle and foot: Status: Acute (3) Closed navicular fracture of ankle: Status: Acute Plan Assessment and plan: 1. Right medial foot/ankle abscess 2. Right foot navicular bone worrisome for acute osteomyelitis All of this is in a current IV drug user I educated him about this condition we discussed operative and non operative treatment options. I am recommending surgery. The risks and benefits of operative treatment were discussed with the patient and the patient wishes to proceed with surgery. These risks include, but are not limited to risk of damage to blood vessels, nerves, tendons, infection, recurrence, incomplete relief of preoperative symptoms, persistent pain, possible need for further surgery and the risks associated with regional blocks and anesthesia. The plan is to take the patient to the operating room today for the following procedures: 1. Right foot I and D 2. [ ] All of the preoperative paperwork including the consent was filled out today. All the patient's questions were answered. Procedures Date of Service Date of Service: 08/19/24
--- NOTE | 2024-08-19 16:08 | W.PM.OPN ---
Operative Note Operative Note Date of Service: 08/19/24 Narrative: Operative Note Narrative: Preop diagnosis: 1. Right medial foot/ankle abscess 2. Right foot navicular fracture 3. Right foot navicular osteomyelitis, likely acute and related to recent fracture 4. Right 3rd metatarsal neck fracture, minimally displaced Postop diagnosis: Same Procedure: 1. Right foot deep abscess I and D 2. Right foot navicular fracture I&D Surgeon: Edelmira Alejandro MD Services Account Manager: None Anesthesia: General Anesthesia Findings: Copious amounts of creamy yellow purulence from the right medial foot/ankle abscess. The abscess communicated with a fracture of the navicular bone of the right foot, however the apex of the abscess was roughly at the medial aspect of the talar neck just distal to the medial malleolus. Implants: None Tourniquet time: 0 minutes EBL: 5.0 ml Specimen: Cultures of creamy yellow purulence x2 Drains: Iodoform gauze x1 Complications: None Disposition: Brought to the recovery room in stable condition Plan: Admit back to the floor for IV antibiotics Consult Infectious Disease. Patient reports he was walking normally on his foot until he sustained an injury on ice about a week and a half ago. After that time he had pain in his foot, and noticed increasing pain and swelling. It is possible that this may be an acute osteomyelitis related to an injury from about a week and a half ago, and likely also related to his IV drug use which is active. Check cultures This right foot should be nonweightbearing, and elevated Wound check, dressing change and pull drains tomorrow. Indications: The patient is a 34 year old man with a right foot abscess and likely recent fracture of the navicular bone of his right foot from a fall or twisting injury about week and a half ago. He is a current IV drug user who denies injecting into his foot. . The risks and benefits of operative treatment, including but not limited to risk of damage to blood vessels, nerves, tendons, infection, recurrence, persistent pain or numbness, incomplete resolution of preoperative symptoms, or need for further surgery were discussed with the patient and they wished to proceed with surgery. Procedure: Once consent was obtained patient was brought back to the operating suite and placed in the operating table in a supine position. Anesthesia was administered by the anesthesia team. A tourniquet was applied to the proximal aspect of the right lower extremity and the limb was prepped and draped in a standard surgical fashion. A tourniquet was applied to the proximal aspect of the right leg but was not inflated during the case. I made a 2.5 cm longitudinal incision over the medial aspect of the right foot at about the talar neck level and directly over the apex of the abscess. The incision was made through the skin to the subcutaneous tissues. Immediately we saw some bloody yellow purulent drainage. I carefully entered the abscess with a hemostat. Cultures x2 were taken of the purulent drainage. The abscess cavity was copiously irrigated with normal saline. With my finger I could appreciate and palpate the fracture of the medial aspect of the navicular bone of the right foot. The abscess communicated this bony fracture of the navicular. Copiously irrigated the navicular and the fairly large abscess cavity. The FluoroScan was utilized to identify the location of the apex of the abscess which was just distal to the medial malleolus. I also placed the hemostat on the navicular fracture. Once satisfied with our I&D hemostasis obtained with a brief period of local pressure The wound was copiously irrigated with normal saline. The wound was not closed, and I placed a strip of iodoform gauze into the abscess cavity to facilitate drainage. A sterile dressing was then applied. The patient appears to have tolerated the procedure well and with no complications. All digits were well vascularized conclusion of the case.
[2024-08-19] MEDS: HYDROmorphone HCl 0.5 MG/0.5 ML SYRINGE IVPUSH ×3 (16:27→16:57)
[2024-08-19] MEDS: Ketorolac Tromethamine 30 MG/ML VIAL IVPUSH (16:47)
[2024-08-19] MEDS: Acetaminophen 1,000 MG/100 ML PIGGYBACK 400 MG IV (16:53)
[2024-08-19] MEDS: vancomycin HCL 1,500 MG in 0.9 % Sodium Chloride 500 ML 333.33 MG IV (20:28)
[2024-08-19] MEDS: Melatonin 3 MG TABLET 6 MG PO (22:57)
[2024-08-19] MEDS: cloNIDine HCL 0.1 MG TABLET PO (22:57)
[2024-08-20] MEDS: Piperacillin Sodium/Tazobactam 4.5 GM in 0.9 % Sodium Chloride 100 ML IV ×3 (02:03→16:34)
[2024-08-20 03:01] VITALS: BP 117/71; PULSE 97; RESP 16; TEMP 36.9; O2SAT 99
[2024-08-20] MEDS: Morphine Sulfate 4 MG/ML CARTRIDGE IVPUSH ×2 (03:35→07:24)
[2024-08-20 05:55] LABS: Hematocrit 34.6 % (42.0-52.0); Hemoglobin 11.3 g/dl (14.0-18.0); Mean Corpuscular HGB Conc 32.7 g/dl (31.0-36.0); Mean Corpuscular Hemoglobin 28.8 pg (27.0-33.0); Mean Corpuscular Volume 88.3 fL (80.0-98.0); Mean Platelet Volume 8.4 fL (9.4-12.4); Platelet Count 392 X10*3/uL (160-400); Red Blood Count 3.92 X10*6/uL (4.60-5.80); Red Cell Distribution Width 12.1 % (11.0-16.0)
[2024-08-20 06:16] LABS: Anion Gap 13 (12-20); Blood Urea Nitrogen 11 mg/dL (9-16); Calcium 8.3 mg/dL (8.4-10.2); Carbon Dioxide 24 mmol/L (22-29); Chloride 104 mmol/L (96-108); Creatinine Clr Calc Pharmacy 143.6; Estimated Glomerular Filt Rate > 60; Glucose Random 104 mg/dL (60-115); Potassium 3.9 mmol/L (3.3-5.1); Sodium 137 mmol/L (135-145)
[2024-08-20] MEDS: vancomycin HCL 1,500 MG in 0.9 % Sodium Chloride 500 ML 333.33 MG IV (07:14)
[2024-08-20] MEDS: 0.9 % Sodium Chloride Flush 3 ML SYRINGE IVFLUSH ×3 (07:14→19:39)
[2024-08-20 07:27] VITALS: BP 120/68; PULSE 93; RESP 18; TEMP 38.2; O2SAT 97
--- NOTE | 2024-08-20 08:14 | HO.POSTANES ---
Post Anesthesia Evaluation Post Anesthesia Evaluation Date of Service: 08/20/24 Vital Signs: Vital Signs Temp Pulse Resp BP Pulse Ox O2 Del Method 08/20/24 07:27 100.8 F H 93 18 120/68 97 Room Air 08/20/24 03:01 98.4 F 97 16 117/71 99 Room Air 08/19/24 23:18 97.5 F 68 16 113/61 92 Room Air Mental Status: Awake Pain Control: Satisfactory Nausea/Vomiting: None Hydration: Adequate Anesthesia-Related Issues: No Anes. Related Issues
[2024-08-20] MEDS: methADONE HCl 20 MG/2 ML ORAL.CONC 40 MG PO (09:25)
[2024-08-20] MEDS: Ketorolac Tromethamine 30 MG/ML VIAL IVPUSH ×2 (09:37→16:33)
--- NOTE | 2024-08-20 09:55 | PM.PNORT ---
Subjective Subjective Date of Service: 08/20/24 Interval history: POD1 s/p I&D of R foot Patient resting in bed this morning Reports he is still experiencing pain in his R foot Has been NWB without issue No other acute complaints or concerns at this time Physical Exam Vital Signs: Vital Signs: Last Vital Signs Temp 100.8 F H 08/20/24 07:27 Pulse 93 08/20/24 07:27 Resp 18 08/20/24 07:27 BP 120/68 08/20/24 07:27 Pulse Ox 97 08/20/24 07:27 O2 Del Method Room Air 08/20/24 07:27 BMI result Body Mass Index 23.0 Extrem: Other: Patient is alert, oriented, and in no acute distress. Neuro: Normal sensation of the tips of all digits of the right foot Vascular: Cap refill brisk Pain: Patient reports very significant tenderness to gentle palpation about the incision site on the medial right foot Pain with any and all range of motion of the right foot ROM: Very minimal range of motion of the right foot secondary to pain Skin: Open surgical incision noted on the medial aspect of the right foot Drains in place No evidence of discharge at this time General: There is erythema surrounding the incision site, improved from prior to surgery There is also noted to be edema surrounding the incision site, also improved from prior to surgery Psych: Appears grossly normal Affect normal Attitude cooperative Procedures Date of Service Date of Service: 08/20/24 Progress Note: A&P Assessment and plan (1) Abscess of right foot: Status: Acute (2) Closed navicular fracture of ankle: Status: Acute (3) Osteomyelitis of ankle and foot: Status: Acute Plan 1. Status post I and D of right foot DOS 08/19/2024 Nonweightbearing on right lower extremity Daily dressing changes, as well as as needed due to saturation Continue pain management per Medicine Consult placed to infectious disease Continue IV antibiotics per Medicine Continue with all other recommendations per Medicine Time Spent With Patient Time: Total time managing care of this patient today ____ minutes. Quality Stroke Does the patient have a stroke diagnosis?: No VTE Prior VTE?: No VTE Risk Level:: Medical - moderate - high VTE Device Contraindication: Treatment Not Tolerated VTE Drug Contraindication: Treatment Not Indicated
--- NOTE | 2024-08-20 11:17 | HO.ADDICT_ITS ---
History of Present Illness Date of Service: 08/20/2024 Chief Complaint: sepsis, osteomyelitis, R food fx Reason for Consult: methadone titration Sources of Information: patient interviewed and chart reviewed HPI Narrative: Patient is a 34 year old male with history of OUD, medically admitted with osteo of the ankle. Consult requested to address methadone dose titration as patient has missed approx 2 weeks of methadone dosing. Per pharmacy dose verification, he last received methadone 140mg on 08/03, with 2 take home bottles provided (last dose 08/05 with take homes) Patient seen in room 343. He is awake, alert, engaged in interview. He states he had not been able to get to the [facility] due to pain in his foot, and difficulty ambulating--unsure of when his last dose was. Reports using a couple of times over the last week and reports using no more than a bag when he did use. He states that he had been in a treatment program from January -June 26, when he left on self directed discharge. He states that he continued treatment for OUD with [facility] and resumed use when he was experiencing withdrawal sx from not having methadone. While in ED, he received methadone 40mg, which he states took the edge off Currently he reports body aches, restlessness, nausea, anxiety, and chills. He appears anxious and slightly diaphoretic Review of Systems Constitutional: Reports as per HPI, Reports body ache(s), Reports chills and Reports difficulty sleeping Diagnostics Vital Signs (24Hr): Vital Signs - 24 hr 08/19/24 16:11 08/19/24 16:16 08/19/24 16:21 Temperature 97.8 F Pulse Rate 90 92 90 Respiratory Rate 17 16 16 Blood Pressure 134/48 L 127/79 124/72 Pulse Oximetry 100 100 100 Oxygen Delivery Method Room Air Room Air Room Air 08/19/24 16:26 08/19/24 16:32 08/19/24 16:37 Temperature Pulse Rate 74 74 72 Respiratory Rate 16 16 16 Blood Pressure 138/90 H 128/79 137/78 Pulse Oximetry 100 99 99 Oxygen Delivery Method Room Air Room Air Room Air 08/19/24 16:47 08/19/24 16:57 08/19/24 17:02 Temperature Pulse Rate 71 72 60 Respiratory Rate 16 16 16 Blood Pressure 132/83 134/89 123/87 Pulse Oximetry 99 99 98 Oxygen Delivery Method Room Air Room Air Room Air 08/19/24 17:10 08/19/24 17:32 08/19/24 19:00 Temperature 98.1 F 97.2 F 96.9 F Pulse Rate 73 59 59 Respiratory Rate 16 15 15 Blood Pressure 126/88 127/80 119/55 L Pulse Oximetry 98 99 98 Oxygen Delivery Method Room Air Room Air Room Air 08/19/24 23:18 08/20/24 03:01 08/20/24 07:27 Temperature 97.5 F 98.4 F 100.8 F H Pulse Rate 68 97 93 Respiratory Rate 16 16 18 Blood Pressure 113/61 117/71 120/68 Pulse Oximetry 92 99 97 Oxygen Delivery Method Room Air Room Air Room Air BMI result Body Mass Index 23.0 Labs 08/20/24 05:39 08/20/24 05:39 Labs: Laboratory Results - last 48 hr 08/18/24 08/19/24 08/20/24 22:19 05:34 05:39 WBC 15.2 H 13.1 H 11.0 H RBC 4.94 D 4.09 L 3.92 L Hgb 14.4 D 12.0 L 11.3 L Hct 42.2 35.4 L 34.6 L MCV 85.4 86.6 88.3 MCH 29.1 29.3 28.8 MCHC 34.1 33.9 32.7 RDW 12.0 12.3 12.1 Plt Count 629 H D 453 H D 392 MPV 8.4 L 8.2 L 8.4 L Immature Gran % (Auto) 0.3 Neut % (Auto) 66.7 Lymph % (Auto) 27.0 [place] % (Auto) 5.5 Eos % (Auto) 0.1 Baso % (Auto) 0.4 Lymph # (Auto) 4.1 [place] # (Auto) 0.8 Eos # (Auto) 0.0 Baso # (Auto) 0.1 Abs Immat Gran (auto) 0.05 H Absolute Neuts (auto) 10.2 H Absolute Nucleated RBC 0.000 0.000 0.000 Nucleated RBC % (auto) 0.0 0.0 0.0 ESR 70 H Sodium 137 140 137 Potassium 3.7 4.1 3.9 Chloride 101 108 104 Carbon Dioxide 24 24 24 Anion Gap 16 12 13 BUN 12 14 11 Creatinine 0.70 0.64 0.73 Estim Creat Clear Calc 149.7 163.7 143.6 Estimated GFR > 60 > 60 > 60 Random Glucose 104 100 104 Lactic Acid 0.9 Calcium 9.8 D 8.4 D 8.3 L Magnesium 2.1 Total Bilirubin 0.6 Direct Bilirubin 0.3 AST 22 ALT 31 Alkaline Phosphatase 76 Total Creatine Kinase 19 L C-Reactive Protein 7.25 H Total Protein 9.4 H Albumin 3.9 Lipase 17 Imaging Radiology Impressions: ITS Impressions Guidance Fluoroscopy 08/19/24 15:15 IMPRESSION: Fluoroscopy during procedure. Please see procedure report for additional information. Electronically signed by: Placido Starr MD 08/20/2024 08:13 AM [facility] Mental Status Exam Mental Status Exam Patient Appearance: Appropriate Level of Consciousness: Awake, Appropriate and Alert Mood Description: Appropriate and Anxious Speech Pattern: Clear Medications Medications Current Medications Acetaminophen (Acetaminophen 325 Mg Tablet) 975 mg PO Q6H PRN PRN Reason: Pain, Mild 1-3,fever,headache Calcium Carbonate (Calcium Carbonate 750 Mg Tab.Chew) 750 mg PO Q4H PRN PRN Reason: Heartburn Clonidine HCl (Clonidine Hcl 0.1 Mg Tablet) 0.1 mg PO TID PRN; Protocol PRN Reason: Opiate Withdrawal Last Admin: 08/19/24 22:57 Dose: 0.1 mg Hydromorphone HCl (Hydromorphone Hcl 1 Mg/Ml Syringe) 1 mg IVPUSH Q4H PRN; Protocol PRN Reason: Pain, Severe (Pain Scale 7-10) Piperacillin Sod/Tazobactam (Sod 4.5 gm/ Sodium Chloride) 100 mls @ 200 mls/hr IV Q8H [facility] Last Infusion: 08/20/24 10:18 Dose: Infused Vancomycin HCl 1,500 mg/ (Sodium Chloride) 500 mls @ 333.333 mls/hr IV Q12H [facility] Last Infusion: 08/20/24 08:45 Dose: Infused Ketorolac Tromethamine (Ketorolac Tromethamine 30 Mg/Ml Vial) 30 mg IVPUSH Q6H PRN PRN Reason: Pain, Mild (Pain Scale 1-3) Stop: 08/24/24 01:40 Last Admin: 08/20/24 09:37 Dose: 30 mg Magnesium Hydroxide (Milk Of Magnesia 30 Ml Oral.Susp) 30 ml PO DAILY PRN PRN Reason: Constipation Melatonin (Melatonin 3 Mg Tablet) 6 mg PO BEDTIME PRN PRN Reason: Insomnia Last Admin: 08/19/24 22:57 Dose: 6 mg Methadone HCl (Methadone Hcl 20 Mg/2 Ml Oral.Conc) 20 mg PO ONCE ONE Stop: 08/20/24 12:01 Morphine Sulfate (Morphine Sulfate 4 Mg/Ml Cartridge) 4 mg IVPUSH Q4H PRN; Protocol PRN Reason: Pain, Moderate(Pain Scale 4-6) Last Admin: 08/20/24 07:24 Dose: 4 mg Naloxone HCl (Naloxone Hcl 0.4 Mg/Ml Vial) 0.04 mg IVPUSH Q5M PRN PRN Reason: Excessive sedation or RR < 8 Nicotine Polacrilex (Nicotine Polacrilex 2 Mg Gum) 2 mg BUCCAL Q2H PRN PRN Reason: Nicotine Cravings Ondansetron HCl (Ondansetron Hcl 4 Mg/2 Ml Vial) 4 mg IVPUSH Q8H PRN PRN Reason: Nausea and Vomiting Pharmacy Consult (Consult Rx Vancomycin Dosing) 1 each MISCELLANE DAILY PRN PRN Reason: Consult order Sodium Chloride (0.9 % Sodium Chloride Flush 3 Ml Syringe) 3 ml IVFLUSH QSHIFT [facility] Last Admin: 08/20/24 07:14 Dose: 3 ml Allergies Allergies Allergy/AdvReac Type Severity Reaction Status Date / Time No Known Allergies Allergy Verified 08/18/24 21:43 Assessment & Plan Assessment & Plan (1) Opioid use disorder: Status: Acute Code(s): F11.90 - Opioid use, unspecified, uncomplicated Assessment and Plan: * methadone 60mg today * methadone 70mg tomorrow --may add 10mg daily PRN if necessary * continue pain medications as needed * HIV and hepatitis screens ordered by hospitalist * will continue to follow and titrate methadone as tolerated Total time managing care of this patient today ____ minutes. PMFSH Past Medical History Medical History Polysubstance use disorder Social History Social History Household Members: Friend(s) Housing: Homeless Housing Other:: homeless lives w/ friend Do you presently have visiting nurse or other home services: No Patient Tobacco Use Status: Current everyday Tobacco user Tobacco use type: Cigarette Cigarette Packs Per Day: 10 Cigarettes Per Day: 5 e-Cigarette/Vaping Use: Never Used Substance Use Type: Prescription Drugs service: No
[2024-08-20] MEDS: HYDROmorphone HCl 1 MG/ML SYRINGE IVPUSH ×3 (11:18→22:17)
[2024-08-20 11:43] VITALS: BP 101/58; PULSE 74; RESP 18; TEMP 36.6; O2SAT 98
[2024-08-20] MEDS: methADONE HCl 20 MG/2 ML ORAL.CONC PO (12:41)
--- NOTE | 2024-08-20 13:57 | P.PNIM_ITS ---
Subjective Subjective Date of Service: 08/20/24 Interval History: POD1, c/o R foot pain T 100.8 this AM plan repeat I+D tomorrow was off methadone for >4d and used heroin Review of Systems Review of Systems: Yes all other systems are reviewed and are negative Physical Exam 2 Vital Signs: Vital Signs: Last Vital Signs Temp 98 F 08/20/24 11:43 Pulse 74 08/20/24 11:43 Resp 18 08/20/24 11:43 BP 101/58 L 08/20/24 11:43 Pulse Ox 98 08/20/24 11:43 O2 Del Method Room Air 08/20/24 11:43 BMI result Body Mass Index 23.0 Gen: in no acute distress HEENT: sclera anicteric, moist mucus membranes Neck: supple Lungs: clear to auscultation bilaterally Heart: regular rate and rhythm, no murmurs Abd: soft, non-tender, non-distended Ext: no edema, R foot in dry dressing; per Ortho open surgical incision R medial foot with drains in place, erythema + edema surrounding incision improved Skin: warm/well-perfused Neuro: alert and oriented x3, no focal findings Psych: appropriate affect Objective Data Active Medications Acetaminophen (Acetaminophen 325 Mg Tablet) 975 mg PO Q6H PRN PRN Reason: Pain, Mild 1-3,fever,headache Calcium Carbonate (Calcium Carbonate 750 Mg Tab.Chew) 750 mg PO Q4H PRN PRN Reason: Heartburn Clonidine HCl (Clonidine Hcl 0.1 Mg Tablet) 0.1 mg PO TID PRN; Protocol PRN Reason: Opiate Withdrawal Last Admin: 08/19/24 22:57 Dose: 0.1 mg Documented By: TANG Hydromorphone HCl (Hydromorphone Hcl 1 Mg/Ml Syringe) 1 mg IVPUSH Q4H PRN; Protocol PRN Reason: Pain, Severe (Pain Scale 7-10) Last Admin: 08/20/24 11:18 Dose: 1 mg Documented By: SANG Piperacillin Sod/Tazobactam (Sod 4.5 gm/ Sodium Chloride) 100 mls @ 200 mls/hr IV Q8H [facility] Last Infusion: 08/20/24 10:18 Dose: Infused Documented By: SANG Vancomycin HCl 1,500 mg/ (Sodium Chloride) 500 mls @ 333.333 mls/hr IV Q12H [facility] Last Infusion: 08/20/24 08:45 Dose: Infused Documented By: SANG Ketorolac Tromethamine (Ketorolac Tromethamine 30 Mg/Ml Vial) 30 mg IVPUSH Q6H PRN PRN Reason: Pain, Mild (Pain Scale 1-3) Stop: 08/24/24 01:40 Last Admin: 08/20/24 09:37 Dose: 30 mg Documented By: SANG Magnesium Hydroxide (Milk Of Magnesia 30 Ml Oral.Susp) 30 ml PO DAILY PRN PRN Reason: Constipation Melatonin (Melatonin 3 Mg Tablet) 6 mg PO BEDTIME PRN PRN Reason: Insomnia Last Admin: 08/19/24 22:57 Dose: 6 mg Documented By: TANG Morphine Sulfate (Morphine Sulfate 4 Mg/Ml Cartridge) 4 mg IVPUSH Q4H PRN; Protocol PRN Reason: Pain, Moderate(Pain Scale 4-6) Last Admin: 08/20/24 07:24 Dose: 4 mg Documented By: SANG Naloxone HCl (Naloxone Hcl 0.4 Mg/Ml Vial) 0.04 mg IVPUSH Q5M PRN PRN Reason: Excessive sedation or RR < 8 Nicotine Polacrilex (Nicotine Polacrilex 2 Mg Gum) 2 mg BUCCAL Q2H PRN PRN Reason: Nicotine Cravings Ondansetron HCl (Ondansetron Hcl 4 Mg/2 Ml Vial) 4 mg IVPUSH Q8H PRN PRN Reason: Nausea and Vomiting Pharmacy Consult (Consult Rx Vancomycin Dosing) 1 each MISCELLANE DAILY PRN PRN Reason: Consult order Sodium Chloride (0.9 % Sodium Chloride Flush 3 Ml Syringe) [facility] Last Admin: 08/20/24 07:14 Dose: 3 ml Documented By: SANG Labs 08/20/24 05:39 08/20/24 05:39 Labs: Laboratory Results - last 24 hr 08/20/24 05:39 MCV 88.3 MCH 28.8 MCHC 32.7 RDW 12.1 Plt Count 392 MPV 8.4 L Absolute Nucleated RBC 0.000 Nucleated RBC % (auto) 0.0 Anion Gap 13 Estim Creat Clear Calc 143.6 Estimated GFR > 60 Random Glucose 104 Calcium 8.3 L Microbiology Microbiology Results: Microbiology 08/19/24 15:50 Gram Stain - Final Foot Right Routine Culture - Preliminary Culture in progress. 08/19/24 15:50 Gram Stain - Final Foot Right Routine Culture - Preliminary Culture in progress. 08/18/24 22:20 Blood Culture - Preliminary Blood - Venous No growth after 24 hours. 08/18/24 22:19 Blood Culture - Preliminary Blood - Venous No growth after 24 hours. Assessment and Plan (1) Osteomyelitis of ankle and foot: Status: Acute Assessment and Plan: d2 for 34yo M with IDU, hx MRSA sacroiliitis presenting with R foot pain/swelling after twisting his ankle, found to have ostemyelitis of the talus, navicular, cunieforms, cuboid, and calcaneus with multiple medial abscesses and displaced 3rd MC neck fracture osteomyelitis, foot abscesses - POD1 right foot deep abscess + R navicular fracture I+D, plan repeat I+D tomorrow - continue vancomycin + piperacillin-tazobactam 08/19-, follow BCx + wound Cx - ID consult pending, will likely need 6 wk of IV vancomycin, PICC once BCx negative - pain mgmt with IV hydromorphone, IV ketorolac, PO APAP' opioid abuse - methadone re-induction by Addiction Medicine - screen HBV/HCV/HIV tobacco abuse - NRT VTE ppx - SCDs, hold heparin for OR dispo - will need STR for PT and IV ABX eventually In my clinical judgment, the patient requires continued inpatient hospitalization for the following reasons: IV ABX, operative management Total time managing care of this patient today: 35 minutes. Quality Stroke Does the patient have a stroke diagnosis?: No VTE Prior VTE?: No VTE Risk Level:: Medical - moderate - high VTE Device Contraindication: Treatment Not Tolerated VTE Drug Contraindication: Treatment Not Indicated
[2024-08-20 14:25] LABS: Estimated Average Glucose 94 mg/dL; Hemoglobin A1c % 4.9 % (<6.0)
[2024-08-20 15:19] VITALS: BP 97/54; PULSE 63; RESP 18; TEMP 36.4; O2SAT 98
--- NOTE | 2024-08-20 19:03 | HE.PHANOTE ---
RE: vanco Level on 08/20 came back at 10 mg/L, increased dose to 1250mg Q8H with predicted trough of 16.5 mg/L, AUC of 581 mg/L. Next level to be drawn 08/21 @1800
[2024-08-20 19:12] VITALS: BP 109/59; PULSE 57; RESP 18; TEMP 36.6; O2SAT 98
[2024-08-20] MEDS: vancomycin HCL 1,250 MG in 0.9 % Sodium Chloride 250 ML 166.67 MG IV (19:38)
[2024-08-20 23:19] VITALS: BP 101/61; PULSE 65; RESP 16; TEMP 36.4; O2SAT 99
[2024-08-21] VITALS (19 sets, daily range): BP systolic 87–137; BP diastolic 48–95; PULSE 53–75; RESP 15–18; TEMP 36.1–37.3; O2SAT 97–100
[2024-08-21] MEDS: Piperacillin Sodium/Tazobactam 4.5 GM in 0.9 % Sodium Chloride 100 ML IV ×2 (01:00→09:01)
[2024-08-21] MEDS: HYDROmorphone HCl 1 MG/ML SYRINGE IVPUSH ×4 (03:05→23:26)
[2024-08-21] MEDS: vancomycin HCL 1,250 MG in 0.9 % Sodium Chloride 250 ML 166.67 MG IV ×2 (03:58→12:46)
[2024-08-21 06:35] LABS: Hematocrit 37.1 % (42.0-52.0); Hemoglobin 11.9 g/dl (14.0-18.0); Mean Corpuscular HGB Conc 32.1 g/dl (31.0-36.0); Mean Corpuscular Hemoglobin 28.6 pg (27.0-33.0); Mean Corpuscular Volume 89.2 fL (80.0-98.0); Mean Platelet Volume 8.7 fL (9.4-12.4); Platelet Count 408 X10*3/uL (160-400); Red Blood Count 4.16 X10*6/uL (4.60-5.80); Red Cell Distribution Width 12.1 % (11.0-16.0); White Blood Count 8.9 X10*3/uL (4.8-10.8)
[2024-08-21 06:59] LABS: Blood Urea Nitrogen 17 mg/dL (9-16); Calcium 8.4 mg/dL (8.4-10.2); Creatinine Clr Calc Pharmacy 132.6; Estimated Glomerular Filt Rate > 60; Glucose Random 85 mg/dL (60-115)
[2024-08-21 07:04] LABS: Anion Gap 13 (12-20); Carbon Dioxide 27 mmol/L (22-29); Chloride 103 mmol/L (96-108); Potassium 4.8 mmol/L (3.3-5.1); Sodium 138 mmol/L (135-145)
--- NOTE | 2024-08-21 07:40 | PM.PNORT ---
Subjective Subjective Date of Service: 08/21/24 Interval history: POD2 s/p I&D of R foot Patient resting in bed this morning Has been NWB without issue No other acute complaints or concerns at this time patient is NPO Physical Exam Vital Signs: Vital Signs: Last Vital Signs Temp 98.3 F 08/21/24 02:58 Pulse 75 08/21/24 02:58 Resp 16 08/21/24 02:58 BP 106/62 08/21/24 02:58 Pulse Ox 99 08/21/24 02:58 O2 Del Method Room Air 08/21/24 02:58 BMI result Body Mass Index 23.0 Extrem: Other: Right foot splint clean dry and intact Procedures Date of Service Date of Service: 08/21/24 Progress Note: A&P Assessment and plan (1) Abscess of right foot: Status: Acute (2) Closed navicular fracture of ankle: Status: Acute (3) Osteomyelitis of ankle and foot: Status: Acute Plan 1. Status post I and D of right foot DOS 08/19/2024 Nonweightbearing on right lower extremity Daily dressing changes, as well as as needed due to saturation Continue pain management per Medicine Consult placed to infectious disease Continue IV antibiotics per Medicine Continue with all other recommendations per Medicine NPO for I&D today Time Spent With Patient Time: Total time managing care of this patient today ____ minutes. Quality Stroke Does the patient have a stroke diagnosis?: No VTE Prior VTE?: No VTE Risk Level:: Medical - moderate - high VTE Device Contraindication: Treatment Not Tolerated VTE Drug Contraindication: Treatment Not Indicated
[2024-08-21] MEDS: 0.9 % Sodium Chloride Flush 3 ML SYRINGE IVFLUSH ×2 (07:56→20:31)
[2024-08-21] MEDS: Ketorolac Tromethamine 30 MG/ML VIAL IVPUSH ×3 (07:57→20:30)
[2024-08-21 08:22] LABS: HBS Num1 > 1000.00 mIU/mL (0-7.99); HBc Num1 0.35 S/CO (0.00-0.79); HBsAGNum1 0.32 S/CO (0.00-0.99); HIV AB/AG Nonreactive (Nonreactive); HIV Num 1 0.06 S/CO (0.00-0.99); Hepatitis B Core Antibody Nonreactive (Nonreactive); Hepatitis B Surface Antigen Negative (Negative); ~HepC Num1 18.44 S/CO (0.00-0.79); ~Hepatitis B Surface Antibody REACTIVE (Nonreactive); ~Hepatitis C Antibody Reactive (Nonreactive)
[2024-08-21] MEDS: methADONE HCl 20 MG/2 ML ORAL.CONC 70 MG PO (09:08)
--- NOTE | 2024-08-21 10:08 | P.PNIM_ITS ---
Subjective Subjective Date of Service: 08/21/24 Interval History: pain controlled fever resolved NPO for repeat I+D today Review of Systems Review of Systems: Yes all other systems are reviewed and are negative Physical Exam 2 Vital Signs: Vital Signs: Last Vital Signs Temp 99.2 F 08/21/24 07:40 Pulse 65 08/21/24 07:40 Resp 18 08/21/24 07:40 BP 104/59 L 08/21/24 07:40 Pulse Ox 98 08/21/24 07:40 O2 Del Method Room Air 08/21/24 07:40 BMI result Body Mass Index 23.0 Gen: in no acute distress HEENT: sclera anicteric, moist mucus membranes Neck: supple Lungs: clear to auscultation bilaterally Heart: regular rate and rhythm, no murmurs Abd: soft, non-tender, non-distended Ext: no edema, R foot in dry dressing/splint Skin: warm/well-perfused Neuro: alert and oriented x3, no focal findings Psych: appropriate affect Objective Data Active Medications Acetaminophen (Acetaminophen 325 Mg Tablet) 975 mg PO Q6H PRN PRN Reason: Pain, Mild 1-3,fever,headache Calcium Carbonate (Calcium Carbonate 750 Mg Tab.Chew) 750 mg PO Q4H PRN PRN Reason: Heartburn Hydromorphone HCl (Hydromorphone Hcl 1 Mg/Ml Syringe) 1 mg IVPUSH Q4H PRN; Protocol PRN Reason: Pain, Severe (Pain Scale 7-10) Last Admin: 08/21/24 07:56 Dose: 1 mg Documented By: SANG Piperacillin Sod/Tazobactam (Sod 4.5 gm/ Sodium Chloride) 100 mls @ 200 mls/hr IV Q8H [facility] Last Infusion: 08/21/24 09:31 Dose: Infused Documented By: SANG Vancomycin HCl 1,250 mg/ (Sodium Chloride) 250 mls @ 166.667 mls/hr IV Q8H [facility] Last Infusion: 08/21/24 05:30 Dose: Infused Documented By: BINTA Ketorolac Tromethamine (Ketorolac Tromethamine 30 Mg/Ml Vial) 30 mg IVPUSH Q6H PRN PRN Reason: Pain, Mild (Pain Scale 1-3) Stop: 08/24/24 01:40 Last Admin: 08/21/24 07:57 Dose: 30 mg Documented By: SANG Magnesium Hydroxide (Milk Of Magnesia 30 Ml Oral.Susp) 30 ml PO DAILY PRN PRN Reason: Constipation Melatonin (Melatonin 3 Mg Tablet) 6 mg PO BEDTIME PRN PRN Reason: Insomnia Last Admin: 08/19/24 22:57 Dose: 6 mg Documented By: TANG Methadone HCl (Methadone Hcl 20 Mg/2 Ml Oral.Conc) 70 mg PO DAILY@0800 [facility] Last Admin: 08/21/24 09:08 Dose: 70 mg Documented By: SANG Co-signed By: AZAEL Comments: given late d/t low BP- MD handy'd to give anyways Naloxone HCl (Naloxone Hcl 0.4 Mg/Ml Vial) 0.04 mg IVPUSH Q5M PRN PRN Reason: Excessive sedation or RR < 8 Nicotine Polacrilex (Nicotine Polacrilex 2 Mg Gum) 2 mg BUCCAL Q2H PRN PRN Reason: Nicotine Cravings Ondansetron HCl (Ondansetron Hcl 4 Mg/2 Ml Vial) 4 mg IVPUSH Q8H PRN PRN Reason: Nausea and Vomiting Pharmacy Consult (Consult Rx Vancomycin Dosing) 1 each MISCELLANE DAILY PRN PRN Reason: Consult order Sodium Chloride (0.9 % Sodium Chloride Flush 3 Ml Syringe) 3 ml IVFLUSH QSHIFT [facility] Last Admin: 08/21/24 07:56 Dose: 3 ml Documented By: SANG Labs 08/21/24 05:30 08/21/24 05:30 Labs: Laboratory Results - last 24 hr 08/20/24 08/20/24 08/21/24 05:39 18:27 05:30 MCV 89.2 MCH 28.6 MCHC 32.1 RDW 12.1 Plt Count 408 H MPV 8.7 L Absolute Nucleated RBC 0.000 Nucleated RBC % (auto) 0.0 Anion Gap 13 Estim Creat Clear Calc 132.6 Estimated GFR > 60 Random Glucose 85 Estimat Average Glucose 94 Hemoglobin A1c % 4.9 Calcium 8.4 Vancomycin Trough 10.0 Hep Bs Antigen Negative Hep Bs Antibody REACTIVE Hep B Core Total Ab Nonreactive Hepatitis C Ab (EIA) Reactive H HIV 1&2 Ab/P24 Ag 4thGn Nonreactive Microbiology Microbiology Results: Microbiology 08/19/24 15:50 Gram Stain - Final Foot Right Routine Culture - Preliminary Staphylococcus aureus 08/19/24 15:50 Gram Stain - Final Foot Right Routine Culture - Preliminary Staphylococcus aureus 08/18/24 22:20 Blood Culture - Preliminary Blood - Venous No growth after 48 hours. 08/18/24 22:19 Blood Culture - Preliminary Blood - Venous No growth after 48 hours. Assessment and Plan (1) Osteomyelitis of ankle and foot: Status: Acute Assessment and Plan: d3 for 34yo M with IDU, hx MRSA sacroiliitis presenting with R foot pain/swelling after twisting his ankle, found to have ostemyelitis of the talus, navicular, cunieforms, cuboid, and calcaneus with multiple medial abscesses and displaced 3rd MC neck fracture osteomyelitis, foot abscesses - POD2 right foot deep abscess + R navicular fracture I+D - plan repeat I+D today - BCx negative, will order PICC - wound culture growing Staph aureus, susceptibilities pending - stop piperacillin tazobactam 08/21-08/21, continue vancomycin 08/19-, ID consult pending but likely needs 6 wk IV with anticipated end date 10/01/23; if MSSA could switch to cefazolin - pain mgmt with IV hydromorphone, IV ketorolac, PO APAP opioid abuse - methadone re-induction by Addiction Medicine, currently on 75 mg/d - HBV immune, HIV negative, HCV positive with viral load pending and if positive needs outpt treatment tobacco abuse - NRT VTE ppx - SCDs, hold heparin for OR dispo - will need STR for PT and IV ABX, anticipate after I+D and postoperative monitoring In my clinical judgment, the patient requires continued inpatient hospitalization for the following reasons: IV ABX, operative management Total time managing care of this patient today: 35 minutes. Quality Stroke Does the patient have a stroke diagnosis?: No VTE Prior VTE?: No VTE Risk Level:: Medical - moderate - high VTE Device Contraindication: Treatment Not Tolerated VTE Drug Contraindication: Treatment Not Indicated
[2024-08-21] MEDS: Lactated Ringers 1,000 ML 999 ML IV (12:08)
--- NOTE | 2024-08-21 12:10 | PC.NURSE ---
BP found to be 88/68 manually, patient is asymptomatic, Dr. Lentz made aware and ordered bolus of 1000ml LR once, LR bolus started by this RN and will continue to monitor BP
--- NOTE | 2024-08-21 12:46 | HO.ADDICTPRO ---
Subjective Subjective Date of Service: 08/21/24 Reason For Visit: sepsis, osteomyelitis, R food fx Interim History: Patient seen in follow up for methadone dose titration This morning received methadone 70mg He reports dose was very helpful and allowed him to nap this morning Continues to report pain in his foot, and has been taking PRN medications as ordered BPs low this morning 80's/40's and HR 50's when seen by t/w Patient denies any dizziness or SOB Appeared very comfortable when seen by t/w Review of Systems Constitutional: Reports as per HPI Mental Status Exam Mental Status Exam Patient Appearance: Appropriate Level of Consciousness: Awake, Appropriate and Alert Patient Behavior: Appropriate and Cooperative Mood Description: Calm Affect Description: Calm Speech Pattern: Clear Diagnostics Vital Signs (24Hr): Vital Signs - 24 hr 08/20/24 15:19 08/20/24 19:12 08/20/24 23:19 Temperature 97.6 F 97.9 F 97.5 F Pulse Rate 63 57 65 Respiratory Rate 18 18 16 Blood Pressure 97/54 L 109/59 L 101/61 Pulse Oximetry 98 98 99 Oxygen Delivery Method Room Air Room Air Room Air 08/21/24 02:58 08/21/24 07:40 08/21/24 11:46 Temperature 98.3 F 99.2 F 97.4 F Pulse Rate 75 65 53 Respiratory Rate 16 18 16 Blood Pressure 106/62 104/59 L 87/48 L Pulse Oximetry 99 98 97 Oxygen Delivery Method Room Air Room Air Room Air BMI result Body Mass Index 23.0 Labs 08/21/24 05:30 08/21/24 05:30 Labs: Laboratory Results - last 48 hr 08/20/24 08/20/24 08/21/24 05:39 18:27 05:30 WBC 11.0 H 8.9 RBC 3.92 L 4.16 L Hgb 11.3 L 11.9 L Hct 34.6 L 37.1 L MCV 88.3 89.2 MCH 28.8 28.6 MCHC 32.7 32.1 RDW 12.1 12.1 Plt Count 392 408 H MPV 8.4 L 8.7 L Absolute Nucleated RBC 0.000 0.000 Nucleated RBC % (auto) 0.0 0.0 Sodium 137 138 Potassium 3.9 4.8 D Chloride 104 103 Carbon Dioxide 24 27 Anion Gap 13 13 BUN 11 17 H Creatinine 0.73 0.79 Estim Creat Clear Calc 143.6 132.6 Estimated GFR > 60 > 60 Random Glucose 104 85 Estimat Average Glucose 94 Hemoglobin A1c % 4.9 Calcium 8.3 L 8.4 Vancomycin Trough 10.0 Hep Bs Antigen Negative Hep Bs Antibody REACTIVE Hep B Core Total Ab Nonreactive Hepatitis C Ab (EIA) Reactive H HIV 1&2 Ab/P24 Ag 4thGn Nonreactive Imaging Radiology Impressions: ITS Impressions Guidance Fluoroscopy 08/19/24 15:15 IMPRESSION: Fluoroscopy during procedure. Please see procedure report for additional information. Electronically signed by: Placido Starr MD 08/20/2024 08:[address] [facility] Medications Medications Current Medications Acetaminophen (Acetaminophen 325 Mg Tablet) 975 mg PO Q6H PRN PRN Reason: Pain, Mild 1-3,fever,headache Calcium Carbonate (Calcium Carbonate 750 Mg Tab.Chew) 750 mg PO Q4H PRN PRN Reason: Heartburn Hydromorphone HCl (Hydromorphone Hcl 1 Mg/Ml Syringe) 1 mg IVPUSH Q4H PRN; Protocol PRN Reason: Pain, Severe (Pain Scale 7-10) Last Admin: 08/21/24 07:56 Dose: 1 mg Vancomycin HCl 1,250 mg/ (Sodium Chloride) 250 mls @ 166.667 mls/hr IV Q8H [facility] Last Infusion: 08/21/24 05:30 Dose: Infused Lactated Ringer's (Lr) 1,000 mls @ 999 mls/hr IV .Q1H1M [facility] Stop: 08/21/24 13:00 Last Admin: 08/21/24 12:08 Dose: 999 mls/hr Ketorolac Tromethamine (Ketorolac Tromethamine 30 Mg/Ml Vial) 30 mg IVPUSH Q6H PRN PRN Reason: Pain, Mild (Pain Scale 1-3) Stop: 08/24/24 01:40 Last Admin: 08/21/24 07:57 Dose: 30 mg Magnesium Hydroxide (Milk Of Magnesia 30 Ml Oral.Susp) 30 ml PO DAILY PRN PRN Reason: Constipation Melatonin (Melatonin 3 Mg Tablet) 6 mg PO BEDTIME PRN PRN Reason: Insomnia Last Admin: 08/19/24 22:57 Dose: 6 mg Methadone HCl (Methadone Hcl 20 Mg/2 Ml Oral.Conc) 70 mg PO DAILY@0800 [facility] Last Admin: 08/21/24 09:08 Dose: 70 mg Naloxone HCl (Naloxone Hcl 0.4 Mg/Ml Vial) 0.04 mg IVPUSH Q5M PRN PRN Reason: Excessive sedation or RR < 8 Nicotine Polacrilex (Nicotine Polacrilex 2 Mg Gum) 2 mg BUCCAL Q2H PRN PRN Reason: Nicotine Cravings Ondansetron HCl (Ondansetron Hcl 4 Mg/2 Ml Vial) 4 mg IVPUSH Q8H PRN PRN Reason: Nausea and Vomiting Pharmacy Consult (Consult Rx Vancomycin Dosing) 1 each MISCELLANE DAILY PRN PRN Reason: Consult order Sodium Chloride (0.9 % Sodium Chloride Flush 3 Ml Syringe) 3 ml IVFLUSH QSHIFT [facility] Last Admin: 08/21/24 07:56 Dose: 3 ml Allergies Allergies Allergy/AdvReac Type Severity Reaction Status Date / Time No Known Allergies Allergy Verified 08/18/24 21:43 Assessment & Plan Assessment & Plan (1) Opioid use disorder: Status: Acute Code(s): F11.90 - Opioid use, unspecified, uncomplicated Assessment and Plan: hold at 70 mg for now due to HR and BPs will continue to follow EKG as titration progresses Total time managing care of this patient today _25___ minutes.
--- NOTE | 2024-08-21 15:39 | P.CONAN_ITS ---
HPI - Anesthesia Eval Consult details Narrative: repeat I and D [facility] Active Problems Active Problems: All Active Problems Opioid use disorder (Acute) Abscess of right foot (Acute) Sepsis (Acute) Osteomyelitis of ankle and foot (Acute) Closed navicular fracture of ankle (Acute) Past Medical History Medical History Polysubstance use disorder Family History Family history of problems with anesthesia: No Surgical History History of Problems with Anesthesia: No Social History Social History Household Members: Friend(s) Housing: Homeless Housing Other:: homeless lives w/ friend Do you presently have visiting nurse or other home services: No Patient Tobacco Use Status: Current everyday Tobacco user Tobacco use type: Cigarette Cigarette Packs Per Day: 10 Cigarettes Per Day: 5 e-Cigarette/Vaping Use: Never Used Substance Use Type: Prescription Drugs service: No Meds Allergies Allergy/AdvReac Type Severity Reaction Status Date / Time No Known Allergies Allergy Verified 08/18/24 21:43 Active Medications: Current Medications Acetaminophen (Acetaminophen 325 Mg Tablet) 975 mg PO Q6H PRN PRN Reason: Pain, Mild 1-3,fever,headache Calcium Carbonate (Calcium Carbonate 750 Mg Tab.Chew) 750 mg PO Q4H PRN PRN Reason: Heartburn Hydromorphone HCl (Hydromorphone Hcl 1 Mg/Ml Syringe) 1 mg IVPUSH Q4H PRN; Protocol PRN Reason: Pain, Severe (Pain Scale 7-10) Last Admin: 08/21/24 14:32 Dose: 1 mg Vancomycin HCl 1,250 mg/ (Sodium Chloride) 250 mls @ 166.667 mls/hr IV Q8H [facility] Last Infusion: 08/21/24 14:16 Dose: Infused Ketorolac Tromethamine (Ketorolac Tromethamine 30 Mg/Ml Vial) 30 mg IVPUSH Q6H PRN PRN Reason: Pain, Mild (Pain Scale 1-3) Stop: 08/24/24 01:40 Last Admin: 08/21/24 14:32 Dose: 30 mg Magnesium Hydroxide (Milk Of Magnesia 30 Ml Oral.Susp) 30 ml PO DAILY PRN PRN Reason: Constipation Melatonin (Melatonin 3 Mg Tablet) 6 mg PO BEDTIME PRN PRN Reason: Insomnia Last Admin: 08/19/24 22:57 Dose: 6 mg Methadone HCl (Methadone Hcl 20 Mg/2 Ml Oral.Conc) 70 mg PO DAILY@0800 [facility] Last Admin: 08/21/24 09:08 Dose: 70 mg Naloxone HCl (Naloxone Hcl 0.4 Mg/Ml Vial) 0.04 mg IVPUSH Q5M PRN PRN Reason: Excessive sedation or RR < 8 Nicotine Polacrilex (Nicotine Polacrilex 2 Mg Gum) 2 mg BUCCAL Q2H PRN PRN Reason: Nicotine Cravings Ondansetron HCl (Ondansetron Hcl 4 Mg/2 Ml Vial) 4 mg IVPUSH Q8H PRN PRN Reason: Nausea and Vomiting Pharmacy Consult (Consult Rx Vancomycin Dosing) 1 each MISCELLANE DAILY PRN PRN Reason: Consult order Sodium Chloride (0.9 % Sodium Chloride Flush 3 Ml Syringe) 3 ml IVFLUSH QSHIFT [facility] Last Admin: 08/21/24 07:56 Dose: 3 ml Home Medications ?Medication ?Instructions ?Recorded ?Confirmed ?Last Taken ?Type methadone 10 mg/mL oral 140 mg PO DAILY 08/19/24 08/19/24 08/03/24 History concentrate (Methadose) Exam Height,Weight and Vital Signs: Height 5 ft 10 in Weight 72.575 kg Last Vital Signs Temp 97 F 08/21/24 15:28 Pulse 58 08/21/24 15:28 Resp 16 08/21/24 15:28 BP 106/69 08/21/24 15:28 Pulse Ox 97 08/21/24 15:28 O2 Del Method Room Air 08/21/24 15:28 Pertinent Lab Results Pertinent Lab Results: Laboratory Tests 08/18/24 08/19/24 08/20/24 22:19 05:34 05:39 WBC 15.2 H 13.1 H 11.0 H RBC 4.94 D 4.09 L 3.92 L Hgb 14.4 D 12.0 L 11.3 L Hct 42.2 35.4 L 34.6 L MCV 85.4 86.6 88.3 MCH 29.1 29.3 28.8 MCHC 34.1 33.9 32.7 RDW 12.0 12.3 12.1 Plt Count 629 H D 453 H D 392 MPV 8.4 L 8.2 L 8.4 L Immature Gran % (Auto) 0.3 Neut % (Auto) 66.7 Lymph % (Auto) 27.0 Gonzales % (Auto) 5.5 Eos % (Auto) 0.1 Baso % (Auto) 0.4 Lymph # (Auto) 4.1 Gonzales # (Auto) 0.8 Eos # (Auto) 0.0 Baso # (Auto) 0.1 Abs Immat Gran (auto) 0.05 H Absolute Neuts (auto) 10.2 H Absolute Nucleated RBC 0.000 0.000 0.000 Nucleated RBC % (auto) 0.0 0.0 0.0 ESR 70 H Sodium 137 140 137 Potassium 3.7 4.1 3.9 Chloride 101 108 104 Carbon Dioxide 24 24 24 Anion Gap 16 12 13 BUN 12 14 11 Creatinine 0.70 0.64 0.73 Estim Creat Clear Calc 149.7 163.7 143.6 Estimated GFR > 60 > 60 > 60 Random Glucose 104 100 104 Estimat Average Glucose 94 Hemoglobin A1c % 4.9 Lactic Acid 0.9 Calcium 9.8 D 8.4 D 8.3 L Magnesium 2.1 Total Bilirubin 0.6 Direct Bilirubin 0.3 AST 22 ALT 31 Alkaline Phosphatase 76 Total Creatine Kinase 19 L C-Reactive Protein 7.25 H Total Protein 9.4 H Albumin 3.9 Lipase 17 Vancomycin Trough Hep Bs Antigen Hep Bs Antibody Hep B Core Total Ab Hepatitis C Ab (EIA) HIV 1&2 Ab/P24 Ag 4thGn 08/20/24 08/21/24 18:27 05:30 WBC 8.9 RBC 4.16 L Hgb 11.9 L Hct 37.1 L MCV 89.2 MCH 28.6 MCHC 32.1 RDW 12.1 Plt Count 408 H MPV 8.7 L Immature Gran % (Auto) Neut % (Auto) Lymph % (Auto) Gonzales % (Auto) Eos % (Auto) Baso % (Auto) Lymph # (Auto) Gonzales # (Auto) Eos # (Auto) Baso # (Auto) Abs Immat Gran (auto) Absolute Neuts (auto) Absolute Nucleated RBC 0.000 Nucleated RBC % (auto) 0.0 ESR Sodium 138 Potassium 4.8 D Chloride 103 Carbon Dioxide 27 Anion Gap 13 BUN 17 H Creatinine 0.79 Estim Creat Clear Calc 132.6 Estimated GFR > 60 Random Glucose 85 Estimat Average Glucose Hemoglobin A1c % Lactic Acid Calcium 8.4 Magnesium Total Bilirubin Direct Bilirubin AST ALT Alkaline Phosphatase Total Creatine Kinase C-Reactive Protein Total Protein Albumin Lipase Vancomycin Trough 10.0 Hep Bs Antigen Negative Hep Bs Antibody REACTIVE Hep B Core Total Ab Nonreactive Hepatitis C Ab (EIA) Reactive H HIV 1&2 Ab/P24 Ag 4thGn Nonreactive Airway Mallampati Class: II TM Dist: >3cm Neck ROM: Full Heart: rrr Lungs: cta Assessment and Plan Assessment Anesthesia Assessment: Anesthesia Plan Discussed and Chart Reviewed Final Anesthetic Review Family History of Problems with Anesthesia: No History of Problems with Anesthesia: No NPO: Yes ASA Class: III Final Preanesthetic Review: No Changes in Pt Med Stat, Meds/Allgs Chart Reviewed, Consent Obtained/Reviewed and Anes Risks/Benef Reviewed Patient Risk: Intermediate Procedure Risk: Low Anesthetic Plan Anesthetic Plan: GA Disposition: Standard PACU
--- NOTE | 2024-08-21 16:17 | MHC.SHP ---
Pre-Procedural Eval Section A - 24 Hr Update-Section A only Date of Service: 08/21/24 The patient is an INPATIENT: Yes Changes since office visit: No Cold of Flu in the past 2 weeks, No New Medical Problems, No Changes in Medication and No Patient answered all questions The patient has been examined within 24 hours of the surgical procedure. The History & Physical has been completed within 30 days and I have reviewed it.: Yes Section B - Complete if H&P > 30 days Chief Complaint: sepsis, osteomyelitis, R food fx Allergies: Allergies Allergy/AdvReac Type Severity Reaction Status Date / Time No Known Allergies Allergy Verified 08/18/24 21:43 Plan I have reviewed the history and physical and performed a pertinent physical examination on my patient. No changes have occurred unless specified. Time Spent With Patient Time: Total time managing care of this patient today ____ minutes.
--- NOTE | 2024-08-21 16:45 | PC.NURSE ---
Discussed pain with anesthesia - iv tylenol pulled for anesthesia to administer in O.R.
--- NOTE | 2024-08-21 17:55 | PM.OP ---
Brief Operative Note Date of Service: 08/21/24 Pre-op diagnosis: Osteomyelitis right navicular Post-op diagnosis: same Procedure: Irrigation, debridement and partial resection navicular, right foot Surgeon: Edward Holloway MD Anesthesia: GETA Was an Customer Service Rep used for this Procedure?: Yes Customer Service Rep: Gerard White Estimated blood loss (mL): 100 IV fluids (mL): 750 Pathology: other Condition: stable Disposition: PACU
[2024-08-21] MEDS: HYDROmorphone HCl 0.5 MG/0.5 ML SYRINGE 0.25 MG IVPUSH ×3 (18:35→18:55)
[2024-08-21 20:30] LABS: Vancomycin Trough 16.4 mcg/mL (10.0-20.0)
[2024-08-21] MEDS: vancomycin HCL 1,000 MG in 0.9 % Sodium Chloride 250 ML 270 MG IV (21:34)
--- NOTE | 2024-08-21 23:21 | P.CNID_ITS ---
History of Present Illness Data of Consult Service Date: 08/20/24 Requesting physician: Hilary Lentz Primary Care Provider: Unknown Physician HPI Reason for consult: right foot OM,sepsis He presents with worsening right foot pain and swelling over the last week. He has temperature of 100.8 and pulse 92 on arrival He is IVDU and has injected into foot he says in past. He is negative HIV and hepatitis C positive with pending viral load. Review of Systems 2 Review of Systems: Yes all other systems are reviewed and are negative PMF Past Medical History Medical History Polysubstance use disorder Family History Family history: reviewed and not pertinent Social History Social History Household Members: Friend(s) Housing: Homeless Housing Other:: homeless lives w/ friend Do you presently have visiting nurse or other home services: No Patient Tobacco Use Status: Current everyday Tobacco user Tobacco use type: Cigarette Cigarette Packs Per Day: 10 Cigarettes Per Day: 5 e-Cigarette/Vaping Use: Never Used Substance Use Type: Prescription Drugs service: No Meds Allergies Allergy/AdvReac Type Severity Reaction Status Date / Time No Known Allergies Allergy Verified 08/18/24 21:43 Active Medications: Current Medications Acetaminophen (Acetaminophen 325 Mg Tablet) 975 mg PO Q6H PRN PRN Reason: Pain, Mild 1-3,fever,headache Calcium Carbonate (Calcium Carbonate 750 Mg Tab.Chew) 750 mg PO Q4H PRN PRN Reason: Heartburn Hydromorphone HCl (Hydromorphone Hcl 1 Mg/Ml Syringe) 1 mg IVPUSH Q4H PRN; Protocol PRN Reason: Pain, Severe (Pain Scale 7-10) Last Admin: 08/21/24 14:32 Dose: 1 mg Vancomycin HCl 1,000 mg/ (Sodium Chloride) 270 mls @ 270 mls/hr IV Q8H [facility] Last Infusion: 08/21/24 22:35 Dose: Infused Ketorolac Tromethamine (Ketorolac Tromethamine 30 Mg/Ml Vial) 30 mg IVPUSH Q6H PRN PRN Reason: Pain, Mild (Pain Scale 1-3) Stop: 08/24/24 01:40 Last Admin: 08/21/24 20:30 Dose: 30 mg Ketorolac Tromethamine (Ketorolac Tromethamine 30 Mg/Ml Vial) 30 mg IVPUSH ONCE PRN PRN Reason: Pain, Severe (Pain Scale 7-10) Stop: 08/22/24 00:12 Magnesium Hydroxide (Milk Of Magnesia 30 Ml Oral.Susp) 30 ml PO DAILY PRN PRN Reason: Constipation Melatonin (Melatonin 3 Mg Tablet) 6 mg PO BEDTIME PRN PRN Reason: Insomnia Last Admin: 08/19/24 22:57 Dose: 6 mg Methadone HCl (Methadone Hcl 20 Mg/2 Ml Oral.Conc) 70 mg PO DAILY@0800 [facility] Last Admin: 08/21/24 09:08 Dose: 70 mg Naloxone HCl (Naloxone Hcl 0.4 Mg/Ml Vial) 0.04 mg IVPUSH Q5M PRN PRN Reason: Excessive sedation or RR < 8 Naloxone HCl (Naloxone Hcl 0.4 Mg/Ml Vial) 0.04 mg IVPUSH Q5M PRN PRN Reason: Excessive sedation or RR < 8 Nicotine Polacrilex (Nicotine Polacrilex 2 Mg Gum) 2 mg BUCCAL Q2H PRN PRN Reason: Nicotine Cravings Ondansetron HCl (Ondansetron Hcl 4 Mg/2 Ml Vial) 4 mg IVPUSH Q8H PRN PRN Reason: Nausea and Vomiting Pharmacy Consult (Consult Rx Vancomycin Dosing) 1 each MISCELLANE DAILY PRN PRN Reason: Consult order Sodium Chloride (0.9 % Sodium Chloride Flush 3 Ml Syringe) 3 ml IVFLUSH QSHIFT [facility] Last Admin: 08/21/24 20:31 Dose: 3 ml Home Medications ?Medication ?Instructions ?Recorded ?Confirmed ?Last Taken ?Type methadone 10 mg/mL oral 140 mg PO DAILY 08/19/24 08/19/24 08/03/24 History concentrate (Methadose) Physical Exam 2 Vital Signs: Vital Signs: Last Vital Signs Temp 97.5 F 08/21/24 19:42 Pulse 64 08/21/24 19:42 Resp 18 08/21/24 19:42 BP 126/79 08/21/24 19:42 Pulse Ox 97 08/21/24 19:42 O2 Del Method Room Air 08/21/24 19:42 O2 Flow Rate 2 08/21/24 19:00 BMI result Body Mass Index 23.0 Const: General: cooperative HEENT: Head: Yes normal to inspection Face and sinus: Yes normal facial exam Mouth: Normal oral and palatal mucosa present Teeth and gingiva: d entition normal Eyes: General: appearance normal, both eyes and all related structures P upils: Equal, round and reactive pupils present Resp: Effort & Inspection: normal respiratory effort Cardio: Rate: regular rate Rhythm: regular rhythm GI: Palpation (GI): Soft to palpation and nontender : General: Yes no CVA tenderness Back/Spine/Pelvis: Back: no CVA tenderness Skin: General skin exam: no rashes or lesions noted Neuro: General: moves all extremities Cranial nerves: Yes Equal, round and reactive pupils present Extrem: Other: painful right foot generalized swelling Psych: Appearance: grossly normal Results Labs 08/21/24 05:30 08/21/24 05:30 Labs: Short CBC 08/21/24 Range/Units 05:30 WBC 8.9 (4.8-10.8) X10*3/uL Hgb 11.9 L (14.0-18.0) g/dl Hct 37.1 L (42.0-52.0) % Plt Count 408 H (160-400) X10*3/uL BMP 08/21/24 05:30 Sodium 138 Potassium 4.8 D Chloride 103 Carbon Dioxide 27 BUN 17 H Creatinine 0.79 Calcium 8.4 Microbiology Microbiology Results: Microbiology 08/19/24 15:50 Foot Right Gram Stain - Final 08/19/24 15:50 Foot Right Routine Culture - Preliminary Staphylococcus aureus 08/19/24 15:50 Foot Right Gram Stain - Final 08/19/24 15:50 Foot Right Routine Culture - Preliminary Staphylococcus aureus 08/18/24 22:20 Blood - Venous Blood Culture - Preliminary No growth after 48 hours. 08/18/24 22:19 Blood - Venous Blood Culture - Preliminary No growth after 48 hours. Assessment and Plan (1) Opioid use disorder: Status: Acute (2) Sepsis: Status: Acute (3) Abscess of right foot: Status: Acute (4) Osteomyelitis of ankle and foot: Status: Acute Plan He has OM right foot. He has staph aureus,pending sensis MSSA or MRSA. He has Hepatitis C positive Would continue Vancomycin,await final sensitivities wound, six weeks total. Will need hepatitis C viral road
[2024-08-22] VITALS (8 sets, daily range): BP systolic 104–121; BP diastolic 54–69; PULSE 57–70; RESP 16–18; TEMP 36.1–36.4; O2SAT 96–99
[2024-08-22] MEDS: HYDROmorphone HCl 1 MG/ML SYRINGE IVPUSH ×5 (03:34→22:59)
[2024-08-22] MEDS: vancomycin HCL 1,000 MG in 0.9 % Sodium Chloride 250 ML 270 MG IV (04:58)
[2024-08-22 06:48] LABS: Creatinine Clr Calc Pharmacy 177.6; Estimated Glomerular Filt Rate > 60
[2024-08-22] MEDS: methADONE HCl 20 MG/2 ML ORAL.CONC 70 MG PO (08:09)
[2024-08-22] MEDS: 0.9 % Sodium Chloride Flush 3 ML SYRINGE IVFLUSH ×3 (08:13→23:05)
--- NOTE | 2024-08-22 08:26 | HO.POSTANES ---
Post Anesthesia Evaluation Post Anesthesia Evaluation Date of Service: 08/22/24 Vital Signs: Vital Signs Temp Pulse Resp BP Pulse Ox O2 Del Method 08/22/24 07:03 97.6 F 68 16 112/64 97 Room Air 08/22/24 03:02 97.5 F 70 16 115/55 L 97 Room Air 08/21/24 23:18 97.4 F 69 16 125/60 98 Room Air Anesthesia: General Endotracheal-GETA Mental Status: Awake Pain Control: Satisfactory Nausea/Vomiting: None Hydration: Adequate Anesthesia-Related Issues: No Anes. Related Issues (reported needing narcan in pacu, and pain being high after. doing well now pain controlled)
[2024-08-22] MEDS: Ketorolac Tromethamine 30 MG/ML VIAL IVPUSH ×2 (08:34→21:54)
--- NOTE | 2024-08-22 08:59 | PM.PNORT ---
Subjective Subjective Date of Service: 08/22/24 Interval history: Postop day 1 status post repeat I and D of the right foot with Dr. Holloway on 08/22/2024 Patient is resting comfortably in bed with splint intact He is anxious about the removal of the packing No concerns today Physical Exam Vital Signs: Vital Signs: Last Vital Signs Temp 97.6 F 08/22/24 07:03 Pulse 68 08/22/24 07:03 Resp 16 08/22/24 07:03 BP 112/64 08/22/24 07:03 Pulse Ox 97 08/22/24 07:03 O2 Del Method Room Air 08/22/24 07:03 O2 Flow Rate 2 08/21/24 19:00 BMI result Body Mass Index 23.0 Const: General: cooperative, healthy appearing and no acute distress Resp: Effort & Inspection: normal respiratory effort and able to speak in complete sentences Cardio: Rate: regular rate Peripheral pulses: Peripheral pulses 2+ throughout GI: Palpation (GI): Soft to palpation Skin: General skin exam: no rashes or lesions noted Extrem: Other: Right foot skin is clean dry and intact. Sutures intact over the wound. Packing in place. Swelling over the dorsum of the foot with no notable discharge. Procedures Date of Service Date of Service: 08/22/24 Progress Note: A&P Assessment and plan (1) Osteomyelitis of ankle and foot: Status: Acute Assessment and Plan: CT foot RT w IV con IMPRESSION: 1. There has been interval resection of the majority of the navicular bone. There is a small fluid collection along the medial surgical tract, which is contiguous with a small subcutaneous enhancing collection containing small foci of gas and fluid in the medial midfoot. This may be postoperative although organizing infection is not excluded. Aside from these collections, no abnormal collections in the dorsal, lateral or plantar foot. 2. There is osteopenia with erosive changes throughout the cuneiforms, residual navicular, cuboid bones, and the proximal second metatarsal bone. Findings are consistent with known osteomyelitis. 3. Subtle erosive changes are likely present involving the anterior process of the calcaneus. 4. Subacute fracture of the distal metaphysis, third metacarpal. Electronically signed by: Cory Chen MD 08/22/2024 02:20 PM [facility] Plan Packing pulled today and dry dressing with asaf wrap applied Night splint applied and to be worn when resting and sleeping Continue dry dressing changes daily-nursing can change throughout day if saturated Pathology pending CT scan suggestive for osteo ID Plan He has OM right foot. He has staph aureus,pending sensis MSSA or MRSA. He has Hepatitis C positive Would continue Vancomycin,await final sensitivities wound, six weeks total. Will need hepatitis C viral road Time Spent With Patient Time: Total time managing care of this patient today ____ minutes. Quality Stroke Does the patient have a stroke diagnosis?: No VTE Prior VTE?: No VTE Risk Level:: Medical - moderate - high VTE Device Contraindication: Treatment Not Tolerated VTE Drug Contraindication: Treatment Not Indicated
--- NOTE | 2024-08-22 09:28 | P.PNIM_ITS ---
Subjective Subjective Date of Service: 08/22/24 Interval History: right foot pain Physical Exam 2 Vital Signs: Vital Signs: Last Vital Signs Temp 97.6 F 08/22/24 07:03 Pulse 68 08/22/24 07:03 Resp 16 08/22/24 07:03 BP 112/64 08/22/24 07:03 Pulse Ox 97 08/22/24 07:03 O2 Del Method Room Air 08/22/24 07:03 O2 Flow Rate 2 08/21/24 19:00 BMI result Body Mass Index 23.0 Const: General: cooperative HEENT: Head: Yes normal to inspection Face and sinus: Yes normal facial exam Mouth: Normal oral and palatal mucosa present Teeth and gingiva: d entition normal Eyes: General: appearance normal, both eyes and all related structures P upils: Equal, round and reactive pupils present Resp: Effort & Inspection: normal respiratory effort Cardio: Rate: regular rate Rhythm: regular rhythm GI: Palpation (GI): Soft to palpation and nontender : General: Yes no CVA tenderness Back/Spine/Pelvis: Back: no CVA tenderness Skin: General skin exam: no rashes or lesions noted Neuro: General: moves all extremities Cranial nerves: Yes Equal, round and reactive pupils present Extrem: Other: painful right foot generalized swelling Psych: Appearance: grossly normal Objective Data Active Medications Acetaminophen (Acetaminophen 325 Mg Tablet) 975 mg PO Q6H PRN PRN Reason: Pain, Mild 1-3,fever,headache Calcium Carbonate (Calcium Carbonate 750 Mg Tab.Chew) 750 mg PO Q4H PRN PRN Reason: Heartburn Cefazolin Sodium (Cefazolin Sodium 1 Gm Vial) 2 gm IVPUSH Q8H OLAYINKA Hydromorphone HCl (Hydromorphone Hcl 1 Mg/Ml Syringe) 1 mg IVPUSH Q4H PRN; Protocol PRN Reason: Pain, Severe (Pain Scale 7-10) Last Admin: 08/22/24 08:08 Dose: 1 mg Documented By: LUIS Ketorolac Tromethamine (Ketorolac Tromethamine 30 Mg/Ml Vial) 30 mg IVPUSH Q6H PRN PRN Reason: Pain, Mild (Pain Scale 1-3) Stop: 08/24/24 01:40 Last Admin: 08/22/24 08:34 Dose: 30 mg Documented By: LUIS Magnesium Hydroxide (Milk Of Magnesia 30 Ml Oral.Susp) 30 ml PO DAILY PRN PRN Reason: Constipation Melatonin (Melatonin 3 Mg Tablet) 6 mg PO BEDTIME PRN PRN Reason: Insomnia Last Admin: 08/19/24 22:57 Dose: 6 mg Documented By: TANG Methadone HCl (Methadone Hcl 20 Mg/2 Ml Oral.Conc) 70 mg PO DAILY@0800 [facility] Last Admin: 08/22/24 08:09 Dose: 70 mg Documented By: LUIS Co-signed By: CARA Naloxone HCl (Naloxone Hcl 0.4 Mg/Ml Vial) 0.04 mg IVPUSH Q5M PRN PRN Reason: Excessive sedation or RR < 8 Naloxone HCl (Naloxone Hcl 0.4 Mg/Ml Vial) 0.04 mg IVPUSH Q5M PRN PRN Reason: Excessive sedation or RR < 8 Nicotine Polacrilex (Nicotine Polacrilex 2 Mg Gum) 2 mg BUCCAL Q2H PRN PRN Reason: Nicotine Cravings Ondansetron HCl (Ondansetron Hcl 4 Mg/2 Ml Vial) 4 mg IVPUSH Q8H PRN PRN Reason: Nausea and Vomiting Sodium Chloride (0.9 % Sodium Chloride Flush 3 Ml Syringe) 3 ml IVFLUSH QSHIFT [facility] Last Admin: 08/22/24 08:13 Dose: 3 ml Documented By: LUIS Labs 08/21/24 05:30 08/22/24 05:45 Labs: Laboratory Results - last 24 hr 08/21/24 08/22/24 20:11 05:45 Estim Creat Clear Calc 177.6 Estimated GFR > 60 Vancomycin Trough 16.4 Microbiology Microbiology Results: Microbiology 08/21/24 17:25 Gram Stain - Final Foot Right 08/19/24 15:50 Gram Stain - Final Foot Right Routine Culture - Final Staphylococcus aureus 08/19/24 15:50 Gram Stain - Final Foot Right Routine Culture - Preliminary Staphylococcus aureus Assessment and Plan (1) Osteomyelitis of ankle and foot: Status: Acute Assessment and Plan: 34M PMH IVDA, hx MRSA sacroiliitis presenting with R foot pain/swelling after twisting his ankle, found to have ostemyelitis of the talus, navicular, cunieforms, cuboid, and calcaneus with multiple medial abscesses and displaced 3rd MC neck fracture osteomyelitis, foot abscesses right foot deep abscess + R navicular fracture, s/p multiple I+D BCx negative, PICC ordered wound culture MSSA needs 6 wk IV with anticipated end date 10/01/23; changed to cefazolin 2gm iv q8h pain mgmt with IV hydromorphone, IV ketorolac, PO APAP opioid abuse methadone re-induction by Addiction Medicine, currently on 70 mg/d HBV immune, HIV negative, HCV positive with viral load pending and if positive needs outpt treatment tobacco abuse NRT VTE ppx SCDs, holding heparin for OR dispo will need STR for PT and IV ABX reason for continued hospitalization:setting up rehab Total time managing care of this patient today: 35 minutes. Quality Stroke Does the patient have a stroke diagnosis?: No VTE Prior VTE?: No VTE Risk Level:: Medical - moderate - high VTE Device Contraindication: Treatment Not Tolerated VTE Drug Contraindication: Treatment Not Indicated
[2024-08-22] MEDS: ceFAZolin Sodium 1 GM VIAL 2 GM IVPUSH ×2 (10:23→17:20)
--- NOTE | 2024-08-22 11:51 | MHC.RECOVRN ---
Met with pt in 343 to follow up, provide support, and assess for adequate pain management. Pt sitting in bed, awake, alert, easily engages in conversation. Pt reports pain 7/10. Reports dilaudid reduces pain level for approx 1 hour, is helpful when it is administered. Pt also reports Toradol helped with throbbing pain. Pt reports pain is consistent and could be better managed. Pt received 70 mg methadone this morning. Reports titration is going welll, however, reports restlessness and diaphoresis. Pt would like to continue titration, reports he had been stable on 140mg for years and that is his therapeutic dose. Pt denies other questions or concerns. Discussed with Tanja Quezada APRN.
--- NOTE | 2024-08-22 12:34 | HO.PICC ---
PICC Line Insertion NPICC Diagnosis: Right foot abscess/osteomyelitis Indication: 6 wks ABT Pertinent Labs: Reviewed Technique: Following informed consent including risks, benefits and alternatives and using sterile technique including cap and mask, sterile gown, glove and drape, the right arm was prepped and draped in the usual sterile fashion of full barrier technique with G. Following completion of Harris Protocol the skin and soft tissues were anesthetized with 1% Lidocaine plain. Using ultrasound guidance, right basilic vein access was obtained. Over an 0.018 wire through peel-away sheath, a 4 FR single lumen PASV PICC line was positioned. Catheter length is 38cm internal length, 0cm external length, for a total trimmed length of 38cm. The procedure was performed in rm 272. Tip verification was performed by Olivia Morrow with Sherlock 3CG. Tip located in SVC. Ultrasound was used to document vein patency and for needle entry. A formal ultrasound picture and cardiac rhythm strip was recorded. [facility] has released the line for use and it is currently dressed with a StatLock, Tegaderm, and CHG disc. Verification has been performed for blood return and line patency. Arm Circumference: 29cm Equipment: [employer] POWER PICC SOLO with Sherlock 3CG TIp Catheter Type: 4 FR single lumen PASV Lot #: [id number]
[2024-08-22 13:13] LABS: HCV Log PCR 6.44 Log IU/mL (NOT DETECTED); HepC Viral Load 2760000 IU/mL (NOT DETECTED)
[2024-08-22] MEDS: iohexoL 350 MG/ML 100 ML INFUS..BTL IV (13:50)
--- NOTE | 2024-08-22 14:02 | MHC.CM.PN ---
Patient requires SNF placement for IV abx. Only bed offer is from [facility]. Reviewed w/ patient who accepted bed. PASRR level 1 complete/accepted. MDS faxed to [facility] for review. Will need guest dosing @ [facility] in [place]. CM spoke w/ Ros @ [facility], patient's furnace brazer is out today. Ros will complete paperwork and send to [facility]. CM attempted to call clinic, but they are closed for today. Will call in AM re: required documentation from [facility]. CM will continue to follow.
[2024-08-22] MEDS: Morphine Sulfate ER 15 MG TABLET.ER PO (15:54)
--- NOTE | 2024-08-22 16:50 | PC.NURSE ---
Flonase nasal spray ordered but not available, message sent to pharmacy requesting medication.
--- NOTE | 2024-08-23 | ECG_ITS ---
Test Reason : POST OP AND MED S Blood Pressure : */* mmHG Vent. Rate : 60 BPM Atrial Rate : 60 BPM P-R Int : 126 ms QRS Dur : 88 ms QT Int : 428 ms P-R-T Axes : 3 17 26 degrees QTcB Int : 428 ms Normal sinus rhythm Normal ECG No previous ECGs available Referred By: Tanja Quezada Electronically Signed By: Eduard Chandler
[2024-08-23] MEDS: ceFAZolin Sodium 1 GM VIAL 2 GM IVPUSH ×3 (01:04→16:41)
[2024-08-23 02:53] VITALS: BP 123/65; PULSE 66; RESP 18; TEMP 36.7; O2SAT 98
[2024-08-23] MEDS: Acetaminophen 325 MG TABLET 975 MG PO (02:59)
[2024-08-23] MEDS: Morphine Sulfate ER 15 MG TABLET.ER PO (04:07)
[2024-08-23] MEDS: HYDROmorphone HCl 1 MG/ML SYRINGE IVPUSH ×4 (04:50→17:03)
[2024-08-23 07:04] VITALS: BP 117/59; PULSE 59; RESP 14; TEMP 37; O2SAT 97
--- NOTE | 2024-08-23 07:28 | PM.PNORT ---
Subjective Subjective Date of Service: 08/23/24 Interval history: Postop day 2 status post repeat I and D of the right foot with Dr. Holloway on 08/22/2024 Patient is resting comfortably in bed with night splint on Patient reports that his pain is improved today, and is very happy with how his course of care has gone since surgery No concerns today Physical Exam Vital Signs: Vital Signs: Last Vital Signs Temp 98.6 F 08/23/24 07:04 Pulse 59 08/23/24 07:04 Resp 14 08/23/24 07:04 BP 117/59 L 08/23/24 07:04 Pulse Ox 97 08/23/24 07:04 O2 Del Method Room Air 08/23/24 07:04 O2 Flow Rate 2 08/21/24 19:00 BMI result Body Mass Index 23.0 Const: General: cooperative, healthy appearing and no acute distress Resp: Effort & Inspection: normal respiratory effort and able to speak in complete sentences Cardio: Rate: regular rate Peripheral pulses: Peripheral pulses 2+ throughout GI: Palpation (GI): Soft to palpation Skin: General skin exam: no rashes or lesions noted Extrem: Other: Right foot skin is clean dry and intact. Sutures intact over the wound. Swelling over the dorsum of the foot with no notable discharge, improved since last evaluation yesterday. Procedures Date of Service Date of Service: 08/23/24 Progress Note: A&P Assessment and plan (1) Osteomyelitis of ankle and foot: Status: Acute Assessment and Plan: CT foot RT w IV con IMPRESSION: 1. There has been interval resection of the majority of the navicular bone. There is a small fluid collection along the medial surgical tract, which is contiguous with a small subcutaneous enhancing collection containing small foci of gas and fluid in the medial midfoot. This may be postoperative although organizing infection is not excluded. Aside from these collections, no abnormal collections in the dorsal, lateral or plantar foot. 2. There is osteopenia with erosive changes throughout the cuneiforms, residual navicular, cuboid bones, and the proximal second metatarsal bone. Findings are consistent with known osteomyelitis. 3. Subtle erosive changes are likely present involving the anterior process of the calcaneus. 4. Subacute fracture of the distal metaphysis, third metacarpal. Electronically signed by: Cory Chen MD 08/22/2024 02:20 PM [id number] Plan Dry dressing with Darin wrap changed today Night splint should continue to be worn when resting and sleeping Continue dry dressing changes daily-nursing can change throughout day if saturated Pathology pending CT scan suggestive for osteo ID Plan He has OM right foot. He has staph aureus,pending sensis MSSA or MRSA. He has Hepatitis C positive Would continue Vancomycin,await final sensitivities wound, six weeks total. Will need hepatitis C viral road Time Spent With Patient Time: Total time managing care of this patient today ____ minutes. Quality Stroke Does the patient have a stroke diagnosis?: No VTE Prior VTE?: No VTE Risk Level:: Medical - moderate - high VTE Device Contraindication: Treatment Not Tolerated VTE Drug Contraindication: Treatment Not Indicated
[2024-08-23] MEDS: methADONE HCl 20 MG/2 ML ORAL.CONC 70 MG PO (09:09)
[2024-08-23] MEDS: methADONE HCl 20 MG/2 ML ORAL.CONC PO (11:05)
--- NOTE | 2024-08-23 11:25 | P.PNIM_ITS ---
Subjective Subjective Date of Service: 08/23/24 Interval History: right foot pain Physical Exam 2 Vital Signs: Vital Signs: Last Vital Signs Temp 98.6 F 08/23/24 07:04 Pulse 59 08/23/24 07:04 Resp 14 08/23/24 07:04 BP 117/59 L 08/23/24 07:04 Pulse Ox 97 08/23/24 07:04 O2 Del Method Room Air 08/23/24 07:04 O2 Flow Rate 2 08/21/24 19:00 BMI result Body Mass Index 23.0 Const: General: cooperative, healthy appearing and no acute distress Resp: Effort & Inspection: normal respiratory effort and able to speak in complete sentences Cardio: Rate: regular rate Peripheral pulses: Peripheral pulses 2+ throughout GI: Palpation (GI): Soft to palpation Skin: General skin exam: no rashes or lesions noted Extrem: Other: Right foot skin is clean dry and intact. Sutures intact over the wound. Swelling over the dorsum of the foot with no notable discharge, improved since last evaluation yesterday. Objective Data Active Medications Acetaminophen (Acetaminophen 325 Mg Tablet) 975 mg PO Q6H PRN PRN Reason: Pain, Mild 1-3,fever,headache Last Admin: 08/23/24 02:59 Dose: 975 mg Documented By: DEBRA Calcium Carbonate (Calcium Carbonate 750 Mg Tab.Chew) 750 mg PO Q4H PRN PRN Reason: Heartburn Cefazolin Sodium (Cefazolin Sodium 1 Gm Vial) 2 gm IVPUSH Q8H OLAYINKA Last Admin: 08/23/24 09:12 Dose: 2 gm Documented By: ENRIQUE Hydromorphone HCl (Hydromorphone Hcl 1 Mg/Ml Syringe) 1 mg IVPUSH Q4H PRN; Protocol PRN Reason: Pain, Severe (Pain Scale 7-10) Last Admin: 08/23/24 09:16 Dose: 1 mg Documented By: ENRIQUE Ketorolac Tromethamine (Ketorolac Tromethamine 30 Mg/Ml Vial) 30 mg IVPUSH Q6H PRN PRN Reason: Pain, Mild (Pain Scale 1-3) Stop: 08/24/24 01:40 Last Admin: 08/22/24 21:54 Dose: 30 mg Documented By: RAFAEL Magnesium Hydroxide (Milk Of Magnesia 30 Ml Oral.Susp) 30 ml PO DAILY PRN PRN Reason: Constipation Melatonin (Melatonin 3 Mg Tablet) 6 mg PO BEDTIME PRN PRN Reason: Insomnia Last Admin: 08/19/24 22:57 Dose: 6 mg Documented By: TANG Methadone HCl (Methadone Hcl 20 Mg/2 Ml Oral.Conc) 70 mg PO DAILY@0800 [facility] Last Admin: 08/23/24 09:09 Dose: 70 mg Documented By: ENRIQUE Co-signed By: BORIS Morphine Sulfate (Morphine Sulfate Er 15 Mg Tablet.Er) 15 mg PO Q12H [facility] Last Admin: 08/23/24 04:07 Dose: 15 mg Documented By: DEBRA Naloxone HCl (Naloxone Hcl 0.4 Mg/Ml Vial) 0.04 mg IVPUSH Q5M PRN PRN Reason: Excessive sedation or RR < 8 Naloxone HCl (Naloxone Hcl 0.4 Mg/Ml Vial) 0.04 mg IVPUSH Q5M PRN PRN Reason: Excessive sedation or RR < 8 Nicotine Polacrilex (Nicotine Polacrilex 2 Mg Gum) 2 mg BUCCAL Q2H PRN PRN Reason: Nicotine Cravings Ondansetron HCl (Ondansetron Hcl 4 Mg/2 Ml Vial) 4 mg IVPUSH Q8H PRN PRN Reason: Nausea and Vomiting Sodium Chloride (0.9 % Sodium Chloride Flush 3 Ml Syringe) 3 ml IVFLUSH QSHIFT [facility] Last Admin: 08/23/24 09:11 Dose: Not Given Documented By: ENRIQUE Non-Admin Reason: patient has PICC line Labs 08/21/24 05:30 08/22/24 05:45 Labs: Laboratory Results - last 24 hr 08/21/24 05:30 Hep C Viral Load [id number] H Hep C Viral Load Log 6.44 H Microbiology Microbiology Results: Microbiology 08/21/24 17:25 Gram Stain - Final Foot Right Routine Culture - Preliminary Staphylococcus aureus 08/19/24 15:50 Gram Stain - Final Foot Right Routine Culture - Final Staphylococcus aureus 08/19/24 15:50 Gram Stain - Final Foot Right Routine Culture - Final Staphylococcus aureus Assessment and Plan (1) Osteomyelitis of ankle and foot: Status: Acute Assessment and Plan: 34M PMH IVDA, hx MRSA sacroiliitis presenting with R foot pain/swelling after twisting his ankle, found to have ostemyelitis of the talus, navicular, cunieforms, cuboid, and calcaneus with multiple medial abscesses and displaced 3rd MC neck fracture osteomyelitis, foot abscesses right foot deep abscess + R navicular fracture, s/p multiple I+D BCx negative, PICC ordered wound culture MSSA needs 6 wk IV with anticipated end date 10/01/23; changed to cefazolin 2gm iv q8h pain mgmt with IV hydromorphone, IV ketorolac, PO APAP opioid abuse methadone re-induction by Addiction Medicine, currently on 70 mg/d HBV immune, HIV negative, HCV positive with viral load pending and if positive needs outpt treatment tobacco abuse NRT VTE ppx SCDs, holding heparin for OR dispo will need STR for PT and IV ABX reason for continued hospitalization:setting up rehab Total time managing care of this patient today: 35 minutes. Quality Stroke Does the patient have a stroke diagnosis?: No VTE Prior VTE?: No VTE Risk Level:: Medical - moderate - high VTE Device Contraindication: Treatment Not Tolerated VTE Drug Contraindication: Treatment Not Indicated
[2024-08-23 11:33] VITALS: BP 121/60; PULSE 59; RESP 14; TEMP 36.9; O2SAT 96
--- NOTE | 2024-08-23 13:20 | P.DS_ITS ---
DS: Providers Provider Date of Service: 08/23/24 Date of admission: 08/19/24 01:41 Date of discharge: 08/23/24 Primary care physician: Unknown Physician Consults: 08/19/24 01:46 Consult to General Surgery Routine Consulting Provider: [facility] General Surgeons Reason for consultation: R navicular fx/osteomyelitis, per ortho request Consult to Orthopedics Routine Consulting Provider: [facility] Orthopedic Surgeons Reason for consultation: R navicular fx/osteomyelitis Has provider been notified: Yes 08/19/24 19:36 Consult to Infectious Diseases Routine Consulting Provider: [facility] Infectious Disease [facility] Reason for consultation: Osteomyelitis of R navicular bone with associated abscess, s/p I&D 08/20/24 07:50 Addiction Medicine Routine Consulting Provider: Addiction Covering Reason for consultation: missed 4 doses of methadone- re-induce DS: Diagnosis Discharge Diagnosis (1) Osteomyelitis of ankle and foot: Status: Acute DS: Summary Hospital Course Hospital Course: from initial hpi: 34-year-old male with a past medical history significant for IV drug use, hep C (current w/u for tx) and MRSA, who presented to the ED due to right foot pain and swelling after rolling his ankle a few days ago. He reports that the swelling and redness as well as pain have increased over the last 2 days. He has been able to walk on it up until today. He rates his pain an 8/10 when he arrived, however now about a 5/10. He reports that he has not been able to get his methadone from [facility] as he has had such terrible pain he has not been able to get out of bed. He ended up using heroin he found in the house 3 days ago. He reports a history of MRSA and sacroiliitis in 2016. He has had chills and has felt unwell but feels this is related to withdrawal from the methadone. No drainage from the injury. hospital course: Patient was admitted for osteomyelitis and abscesses of the right foot related to IV drug use. Was treated with IV vancomycin, wound culture grew MSSA and was changed to cefazolin. Plan is for 6 weeks of IV antibiotics to completed 09/30/2024, blood cultures were negative, PICC line placed, was seen by Orthopedics who performed multiple I and D's and will continue to follow outpatient. For opiate dependence was seen by Addiction Medicine and started on methadone. For hepatitis-C noted to have high viral load and should follow up outpatient for treatment. For tobacco dependence continued on nicotine replacement therapy. Patient will be discharged to [facility] facility due to requirement of IV antibiotics. patient expected to require less than 30 days. Time Attestation Discharge Coordination Time (in mins): 32 Quality: Safe Use of Opioids Does Pt have an Active Cancer Diagnosis on the Problem List?: No Quality: Stroke Does the patient have a stroke diagnosis?: No Physical Exam Vital Signs: Vital Signs: Last Vital Signs Temp 98.5 F 08/23/24 11:33 Pulse 59 08/23/24 11:33 Resp 14 08/23/24 11:33 BP 121/60 08/23/24 11:33 Pulse Ox 96 08/23/24 11:33 O2 Del Method Room Air 08/23/24 11:33 O2 Flow Rate 2 08/21/24 19:00 BMI result Body Mass Index 23.0 Const: General: cooperative, healthy appearing and no acute distress Resp: Effort & Inspection: normal respiratory effort and able to speak in complete sentences Cardio: Rate: regular rate Peripheral pulses: Peripheral pulses 2+ throughout GI: Palpation (GI): Soft to palpation Skin: General skin exam: no rashes or lesions noted Extrem: Other: Right foot skin is clean dry and intact. Sutures intact over the wound. Swelling over the dorsum of the foot with no notable discharge, improved since last evaluation yesterday. DS: Data Data Completed and Pending Pending studies at discharge: Pending at discharge 08/21/24 17:28 Surgical [PTH] Routine Labs on day of discharge: Preliminary micro results at discharge 08/21/24 17:25 Routine Culture - Preliminary Foot Right Staphylococcus aureus 08/18/24 22:20 Blood Culture - Preliminary Blood - Venous No growth after 48 hours. 08/18/24 22:19 Blood Culture - Preliminary Blood - Venous No growth after 48 hours. Discharge Plan Discharge Anticipated Discharge Date/Time: 08/23/24 13:16 Patient Disposition: Xfer SNF Discharge Diagnosis: om [facility]errals: [facility] [Outside] - 1 Week Gerard White PA-C [Physician Structural Draftsman] - 1 Week (08/30/24 1:00 [facility] Orthopedic Surgeons Gerard White PA-C) Physician,Unknown J [Primary Care Provider] - 1 Week Discharge Medications: New cefazolin 1 gram Recon Soln 2 g IVPUSH Q8H Qty: 0 0RF nicotine (polacrilex) 2 mg Gum 2 mg buccal Q2H PRN (Reason: Nicotine Cravings) Qty: 0 0RF morphine 15 mg Tablet Extended Release 15 mg PO Q12H 35 Days Qty: 70 0RF Rx Instructions: Partial Fill upon patient request. methadone [Methadose] 10 mg/mL Concentrate 70 mg PO DAILY@0800 35 Days Qty: 1000 0RF Rx Instructions: Partial Fill upon patient request. Continued (DME) cane Device See Rx Instructions .Route Qty: 1 0RF Rx Instructions: As directed Discontinued methadone [Methadose] 10 mg/mL concentrate 140 mg PO DAILY Rx Instructions: [facility] Discharge Orders: Discharge Order (Routine); Ordered 08/23/24 Ordered By: Lucio Knight Diet: Advance to usual diet Activity on Discharge: issac Stand Alone Forms: Patient Portal Discharge page Print Language: Kyrgyz Care Plan Goals: recvery Health Concerns: om Plan of Treatment: ancef 2gm q8, end 09/30/24, follow up with ortho, continue dressing changes - Dry dressing with Darin wrap monitor cbc, cmp weekly while on antibiotics Assessment: see above
--- NOTE | 2024-08-23 14:33 | MHC.CM.PN ---
PT CLEARED TO DC TO STR TODAY [facility] IS OFFER[facility] A BED AND HAS MADE PT1 ARRANGEMENTS FOR PTS METHADONE TREATMENT CM CALLED [facility] [phone] IN [place], THEY CONFIRMED PT IS SET TO GUEST DOSE, THEY WILL JUST NEED HIS DCS AND LAST DOSE LETTER FAXED [phone] BLS TRANSPORT BOOKED WITH [facility] FOR 1800 HOURS
[2024-08-23 14:52] VITALS: O2SAT 96
[2024-08-23 15:10] VITALS: BP 125/59; PULSE 71; RESP 16; TEMP 36.4; O2SAT 98
--- NOTE | 2024-08-23 15:34 | MHC.RECOVRN ---
Met with pt to follow up after receiving additional 20 mg methadone for a total of 90 mg today. Pt sitting in bed, awake, engages in conversation, appears slightly sedated. Pt reports he feels good with the increase, does not believe it was too much. Aware of plan for STR today. Denies questions or concerns for t/w. Discussed with Tanja Quezada APRN.
[2024-08-23] MEDS: 0.9 % Sodium Chloride Flush 3 ML SYRINGE IVFLUSH (16:41)
--- NOTE | 2024-08-23 17:00 | PC.NURSE ---
RN attempted to call [facility] 3 times to give nurse to nurse report but nobody answered the phone
--- NOTE | 2024-08-23 17:25 | HO.ADDICTPRO ---
Subjective Subjective Date of Service: 08/23/24 Reason For Visit: sepsis, osteomyelitis, R food fx Interim History: Patient seen in follow up with ticket counter Awake, alert, pleasant and engaged in interview Reports he is feeling better in terms of withdrawal and would like to increase dose further Appetite has improved, sleep improved Still having pain/discomfort with foot. Awaiting STR placement Review of Systems Constitutional: Reports as per HPI Mental Status Exam Mental Status Exam Patient Appearance: Appropriate Level of Consciousness: Awake, Appropriate and Alert Patient Behavior: Appropriate and Talkative Mood Description: Calm Affect Description: Calm Speech Pattern: Clear Thought Process: Intact Judgement: Good Diagnostics Vital Signs (24Hr): Vital Signs - 24 hr 08/22/24 18:11 08/22/24 19:26 08/22/24 23:17 Temperature 97.5 F 96.9 F Pulse Rate 62 61 Respiratory Rate 18 18 Blood Pressure 107/54 L 112/56 L Pulse Oximetry 98 99 Oxygen Delivery Method Room Air Room Air Room Air 08/22/24 23:29 08/23/24 02:53 08/23/24 07:04 Temperature 98.0 F 98.6 F Pulse Rate 66 59 Respiratory Rate 18 18 14 Blood Pressure 123/65 117/59 L Pulse Oximetry 98 97 Oxygen Delivery Method Room Air Room Air 08/23/24 11:33 08/23/24 14:52 08/23/24 15:10 Temperature 98.5 F 97.6 F Pulse Rate 59 71 Respiratory Rate 14 16 Blood Pressure 121/60 125/59 L Pulse Oximetry 96 96 98 Oxygen Delivery Method Room Air Room Air Room Air BMI result Body Mass Index 23.0 Labs 08/21/24 05:30 08/22/24 05:45 Labs: Laboratory Results - last 48 hr 08/21/24 08/21/24 08/22/24 05:30 20:11 05:45 Creatinine 0.59 Estim Creat Clear Calc 177.6 Estimated GFR > 60 Vancomycin Trough 16.4 Hep C Viral Load [id number] H Hep C Viral Load Log 6.44 H Imaging Radiology Impressions: ITS Impressions Guidance Fluoroscopy 08/19/24 15:15 IMPRESSION: Fluoroscopy during procedure. Please see procedure report for additional information. Electronically signed by: Placido Starr MD 08/20/2024 08:13 AM [facility] Guidance Fluoroscopy 08/21/24 17:11 IMPRESSION: Fluoroscopy during procedure. Please see procedure report for additional information. Electronically signed by: Placido Starr MD 08/22/2024 07:21 AM EST RP Foot CT 08/22/24 13:04 IMPRESSION: 1. There has been interval resection of the majority of the navicular bone. There is a small fluid collection along the medial surgical tract, which is contiguous with a small subcutaneous enhancing collection containing small foci of gas and fluid in the medial midfoot. This may be postoperative although organizing infection is not excluded. Aside from these collections, no abnormal collections in the dorsal, lateral or plantar foot. 2. There is osteopenia with erosive changes throughout the cuneiforms, residual navicular, cuboid bones, and the proximal second metatarsal bone. Findings are consistent with known osteomyelitis. 3. Subtle erosive changes are likely present involving the anterior process of the calcaneus. 4. Subacute fracture of the distal metaphysis, third metacarpal. Electronically signed by: Cory Chen MD 08/22/2024 02:20 PM EST RP Medications Medications Current Medications Acetaminophen (Acetaminophen 325 Mg Tablet) 975 mg PO Q6H PRN PRN Reason: Pain, Mild 1-3,fever,headache Last Admin: 08/23/24 02:59 Dose: 975 mg Calcium Carbonate (Calcium Carbonate 750 Mg Tab.Chew) 750 mg PO Q4H PRN PRN Reason: Heartburn Cefazolin Sodium (Cefazolin Sodium 1 Gm Vial) 2 gm IVPUSH Q8H OLAYINKA Last Admin: 08/23/24 16:41 Dose: 2 gm Hydromorphone HCl (Hydromorphone Hcl 1 Mg/Ml Syringe) 1 mg IVPUSH Q4H PRN; Protocol PRN Reason: Pain, Severe (Pain Scale 7-10) Last Admin: 08/23/24 17:03 Dose: 1 mg Ketorolac Tromethamine (Ketorolac Tromethamine 30 Mg/Ml Vial) 30 mg IVPUSH Q6H PRN PRN Reason: Pain, Mild (Pain Scale 1-3) Stop: 08/24/24 01:40 Last Admin: 08/22/24 21:54 Dose: 30 mg Magnesium Hydroxide (Milk Of Magnesia 30 Ml Oral.Susp) 30 ml PO DAILY PRN PRN Reason: Constipation Melatonin (Melatonin 3 Mg Tablet) 6 mg PO BEDTIME PRN PRN Reason: Insomnia Last Admin: 08/19/24 22:57 Dose: 6 mg Methadone HCl (Methadone Hcl 20 Mg/2 Ml Oral.Conc) 70 mg PO DAILY@0800 [facility] Last Admin: 08/23/24 09:09 Dose: 70 mg Morphine Sulfate (Morphine Sulfate Er 15 Mg Tablet.Er) 15 mg PO Q12H [facility] Last Admin: 08/23/24 15:36 Dose: Not Given Naloxone HCl (Naloxone Hcl 0.4 Mg/Ml Vial) 0.04 mg IVPUSH Q5M PRN PRN Reason: Excessive sedation or RR < 8 Naloxone HCl (Naloxone Hcl 0.4 Mg/Ml Vial) 0.04 mg IVPUSH Q5M PRN PRN Reason: Excessive sedation or RR < 8 Nicotine Polacrilex (Nicotine Polacrilex 2 Mg Gum) 2 mg BUCCAL Q2H PRN PRN Reason: Nicotine Cravings Ondansetron HCl (Ondansetron Hcl 4 Mg/2 Ml Vial) 4 mg IVPUSH Q8H PRN PRN Reason: Nausea and Vomiting Sodium Chloride (0.9 % Sodium Chloride Flush 3 Ml Syringe) 3 ml IVFLUSH QSHIFT [facility] Last Admin: 08/23/24 16:41 Dose: 3 ml Allergies Allergies Allergy/AdvReac Type Severity Reaction Status Date / Time No Known Allergies Allergy Verified 08/18/24 21:43 Assessment & Plan Assessment & Plan (1) Opioid use disorder: Status: Acute Code(s): F11.90 - Opioid use, unspecified, uncomplicated Assessment and Plan: additional 20mg methadone today. Total of 90mg continue 90mg QD in AM EKG as he does not have on file as dose is being titrated at time of this note, patient is scheduled to be transferred to [facility] this evening Total time managing care of this patient today __25__ minutes.
[2024-08-23 19:21] VITALS: BP 113/59; PULSE 65; RESP 18; TEMP 36.4; O2SAT 98
[2024-08-23] MEDS: Ketorolac Tromethamine 30 MG/ML VIAL IVPUSH (19:34)
--- NOTE | 2024-08-24 06:41 | PC.NURSE ---
late entry for 08/19 @ 0452: pt was not due for PRN dilaudid and requested PRN morphine for pain relief.
--- NOTE | 2024-12-04 14:22 | P.OP_ITS ---
Operative Note Operative Note Date of Service: 08/21/24 Narrative: Date of Service: 08/21/24 Pre-op diagnosis: Osteomyelitis right navicular Post-op diagnosis: same Procedure: Irrigation, debridement and partial resection navicular, right foot Surgeon: Edward Holloway MD Anesthesia: GETA Was an Global Commodity Manager used for this Procedure?: Yes Global Commodity Manager: Gerard White Estimated blood loss (mL): 100 IV fluids (mL): 750 Pathology: other Condition: stable Disposition: PACU Procedure in detail: Patient was brought to the operating room placed in the supine position. There was a medial wound over the right mid foot. This was fluctuant and with purulent discharge. In it transverse incision was made at this level and copious fibrous/purulent fluid was expressed. Full-thickness skin flaps were developed and I dissected down to bone. The bone was extremely irregular. There was fibrous and necrotic debris and a rongeur was used to remove this easily. I used my gloved finger to explore the wound and there was most of the navicular had been eaten by the infection. The far lateral portion of the navicular seemed intact. I meticulously removed all necrotic tissue from the wound. This had not penetrated out into the surrounding bony structures as far as I could tell. Once all necrotic debris was removed irrigated copiously and extensively with the pulse lavage and could visualize normal shell of the lateral aspect of the navicular. This was not removed. Once I was satisfied that the wound had been completely debrided with a combination of rongeur and curette and irrigation I packed the wound with Nu Gauze and closed with nylon loosely over the packing. Sterile dressings were applied and he was extubated and brought to recovery room in stable condition. There were no known complications.
== END 2024-08-23 19:45 | disposition skilled nursing facility (03) | DRG 314 ==
LOC: HO.ED 08-19 01:20 → HO.EDOVER 08-19 02:06 → HO.S3 08-19 16:07
PROVIDERS: Emergency Medicine; Family Medicine; Internal Medicine; Orthopaedic Surgery; Admitting Provider Physician Assistant; Emergency Provider Emergency Medicine; Visit Provider Internal Medicine
PROC: 0J9Q0ZZ Drainage of Right Foot Subcutaneous Tissue and Fascia, Open Approach (ICD-10-PCS; principal; 2024-08-19 15:00)
PROC: 0QBL0ZZ Excision of Right Tarsal, Open Approach (ICD-10-PCS; principal; 2024-08-21 15:20)
DX: S92.251A Displaced fracture of navicular [scaphoid] of right foot, initial encounter for closed fracture (principal); I96 Gangrene, not elsewhere classified; M86.171 Other acute osteomyelitis, right ankle and foot; L02.415 Cutaneous abscess of right lower limb; S92.331A Displaced fracture of third metatarsal bone, right foot, initial encounter for closed fracture; B19.20 Unspecified viral hepatitis C without hepatic coma; F11.23 Opioid dependence with withdrawal; T40.3X6A Underdosing of methadone, initial encounter; F17.210 Nicotine dependence, cigarettes, uncomplicated; W00.0XXA Fall on same level due to ice and snow, initial encounter; Z86.14 Personal history of Methicillin resistant Staphylococcus aureus infection; Z71.6 Tobacco abuse counseling; Z79.899 Other long term (current) drug therapy
CPT/HCPCS: 36415; 36573; 73610; 73630; 73701; 73720; 80048; 80076; 80202; 82550; 82565; 83036; 83605; 83690; 83735; 85025; 85027; 85652; 86140; 86704; 86706; 86803; 87040; 87070; 87077; 87147; 87186; 87205; 87340; 87389; 87522; 88304; 88311; 93005; 97161; 99284; A9585; C1751; C9250; J0131; J0690; J1100; J1171; J1885; J2003; J2250; J2270; J2310; J2405; J2543; J2704; J3010; J3370; J3371; J7120; Q9967

== ENCOUNTER → 2024-08-18 21:43 | Outpatient (BNV) | payer MEDICAID, SELFPAY | PROVIDERS: Visit Provider Student in an Organized Health Care Education/Training Program | DX: M86.671 Other chronic osteomyelitis, right ankle and foot (principal); S92.251A Displaced fracture of navicular [scaphoid] of right foot, initial encounter for closed fracture | CPT/HCPCS: 73610; 73630 ==

== ENCOUNTER 2024-08-19 01:41 | Outpatient (BNV) | payer MEDICAID, SELFPAY | END 2024-08-22 13:04 | PROVIDERS: Admitting Provider Physician Assistant; Emergency Provider Emergency Medicine; Visit Provider Radiology Diagnostic Radiology | DX: M86.171 Other acute osteomyelitis, right ankle and foot (principal); S92.334A Nondisplaced fracture of third metatarsal bone, right foot, initial encounter for closed fracture | CPT/HCPCS: 73701 ==

== ENCOUNTER 2024-08-19 01:41 | Outpatient (BNV) | payer MEDICAID, SELFPAY | END 2024-08-19 12:10 | PROVIDERS: Admitting Provider Physician Assistant; Emergency Provider Emergency Medicine; Visit Provider Radiology Diagnostic Radiology | DX: S92.331A Displaced fracture of third metatarsal bone, right foot, initial encounter for closed fracture (principal); M86.171 Other acute osteomyelitis, right ankle and foot; L02.611 Cutaneous abscess of right foot; L03.115 Cellulitis of right lower limb | CPT/HCPCS: 73720 ==

== ENCOUNTER 2024-08-19 01:41 | Outpatient (BNV) | payer MEDICAID, SELFPAY | END 2024-08-23 13:50 | PROVIDERS: Admitting Provider Physician Assistant; Emergency Provider Emergency Medicine; Visit Provider Internal Medicine Cardiovascular Disease | DX: Z48.812 Encounter for surgical aftercare following surgery on the circulatory system (principal) | CPT/HCPCS: 93010 ==

== ENCOUNTER → 2024-08-19 01:41 | Outpatient (BNV) | payer MEDICAID, SELFPAY | PROVIDERS: Admitting Provider Physician Assistant; Emergency Provider Emergency Medicine; Visit Provider Nurse Practitioner Psychiatric/Mental Health | DX: F11.90 Opioid use, unspecified, uncomplicated (principal) | CPT/HCPCS: 99221; 99232 ==

== ENCOUNTER → 2024-08-19 01:41 | Outpatient (BNV) | payer MEDICAID, SELFPAY | PROVIDERS: Admitting Provider Physician Assistant; Emergency Provider Emergency Medicine; Visit Provider Internal Medicine | DX: F11.90 Opioid use, unspecified, uncomplicated (principal); A41.9 Sepsis, unspecified organism; L02.611 Cutaneous abscess of right foot; M86.9 Osteomyelitis, unspecified | CPT/HCPCS: 99222 ==

== ENCOUNTER → 2024-08-19 01:41 | Outpatient (BNV) | payer MEDICAID, SELFPAY | PROVIDERS: Admitting Provider Physician Assistant; Emergency Provider Emergency Medicine; Visit Provider Physician Assistant | DX: M86.9 Osteomyelitis, unspecified (principal) | CPT/HCPCS: 99232 ==

== ENCOUNTER → 2024-08-19 01:41 | Outpatient (BNV) | payer MEDICAID, SELFPAY | PROVIDERS: Admitting Provider Physician Assistant; Emergency Provider Emergency Medicine | DX: M86.9 Osteomyelitis, unspecified (principal) | CPT/HCPCS: 27603; 99024; 99222 ==

== ENCOUNTER 2024-09-13 13:23 | Outpatient (REF) | payer MEDICAID, SELFPAY ==
--- NOTE | ~2024-09-13 | XR_ITS ---
EXAMINATION: XR FOOT 3 OR MORE VIEWS RIGHT HISTORY: S92.351A - Displaced fracture of fifth metatarsal bone, right foot, init... COMPARISON: Comparison is made with the prior examination dated 08/18/2024. FINDINGS: Three views of the right foot are submitted. There has been progression of severe osteopenia involving the anterior talus, navicular, cuneiforms, cuboid, and bases of the metatarsals since the prior study. There is evidence of collapse of the navicular bone. There is also severe osteopenia about the posterior subtalar joint. The soft tissues are unremarkable. XR/XR foot RT min 3V IMPRESSION: Progression of diffuse osteopenia of the midfoot as well as about the posterior subtalar joint and involving the bases of the metatarsals. Progression of previously seen osteomyelitis is suspected. There is collapse of the navicular bone. Electronically signed by: Placido Starr MD 09/14/2024 11:58 AM EDT
== END 2024-09-13 13:24 | disposition home or self-care (01) ==
LOC: HO.HOSX 13:23
PROVIDERS: Visit Provider Physician Assistant
DX: S92.351A Displaced fracture of fifth metatarsal bone, right foot, initial encounter for closed fracture (principal); X58.XXXA Exposure to other specified factors, initial encounter; Y93.9 Activity, unspecified; Y92.9 Unspecified place or not applicable; Y99.9 Unspecified external cause status; M86.9 Osteomyelitis, unspecified
CPT/HCPCS: 73630

== ENCOUNTER 2024-09-13 13:23 | Outpatient (AMB) | payer MEDICAID, SELFPAY ==
--- NOTE | 2024-09-13 14:42 | MHC.OFFVIS ---
Intake Visit Reasons: PO- I&D Rt foot 08/22/24 NE Intake Note: Eligio is a 34 year old male who presents today for a post operative visit s/p I&D of right foot, DOS 08/22/24 NE. Patient reports he is slowly getting better. Pt states he isnt in as much pain and states he is able to move his toes more and states the swelling has gone down since last time. Pt states he is still non weight bearing. Pt states he is doing PT everyday. Allergies No Known Allergies Allergy (Verified 09/13/24 14:42) HPI HPI PO- I&D Rt foot 08/22/24 NE: Details: 34-year-old gentleman presents to the office today status post I and D right foot on 08/21/[address] Holloway. He has a PICC line and receiving IV antibiotics ancef 2gm q8, end 09/30/24. He continues to remain nonweightbearing. He states his pain is tolerable. No concerns today. [facility] Medical History Polysubstance use disorder Social History Household Members: Friend(s) Housing: Homeless Housing Other:: homeless lives w/ friend Do you presently have visiting nurse or other home services: No Patient Tobacco Use Status: Current everyday Tobacco user Tobacco use type: Cigarette Cigarette Packs Per Day: 10 Cigarettes Per Day: 5 e-Cigarette/Vaping Use: Never Used Substance Use Type: Prescription Drugs service: No Review of Systems Const All systems reviewed & are unremarkable except as noted in HPI and below Physical Exam Extrem Other: Right foot incision is clean dry and intact. No erythema. No drainage. No tenderness to palpation. He has good ankle range of motion. Neurovascularly intact. Results Reviewed Results Reviewed: X-rays of the right foot obtained in the office today show evidence of bone debridement Assessment & Plan Assessment & Plan (1) Osteomyelitis of ankle and foot: Code(s): M86.9 - Osteomyelitis, unspecified Category: Medical Plan: Sutures removed today Steri-Strips applied. The patient was given a night splint to wear at night as needed. He was also fit for a short walking boot to weightbear as tolerated. Use this boot at all times when ambulating but can remove for rest hygiene and occasional sleeping. He will continue with the IV antibiotics with an end date of 09/30/2024. I would like to have him work on range of motion gait training and strengthening type exercises with physical therapy. He will see us back in 4 weeks for a follow up, sooner if needed. Orders: Orders XR foot RT min 3V Today S92.351A - Displaced fracture of fifth metatarsal bone, right foot, initial encounter for closed fracture Coding Level of Care Code Global (89413) Diagnoses Osteomyelitis of ankle and foot M86.9
== END 2024-09-13 15:30 | disposition home or self-care (01) ==
LOC: HO.HOS 13:23
PROVIDERS: Visit Provider Physician Assistant
DX: M86.9 Osteomyelitis, unspecified (principal)
CPT/HCPCS: 99024

== ENCOUNTER → 2024-09-13 14:21 | Outpatient (BNV) | payer MEDICAID, SELFPAY | PROVIDERS: Visit Provider Radiology Diagnostic Radiology | DX: M85.871 Other specified disorders of bone density and structure, right ankle and foot (principal) | CPT/HCPCS: 73630 ==